=== PATIENT | female | born 1930 | race Caucasian/White ===

== ENCOUNTER 2016-08-27 17:10 | Observation (INO) | payer MEDICARE, BC ==
[2016-08-27] MEDS ORDERED: Sodium Chloride 0.9% 1,000 ML IV SCH ×2 (19:30→22:45)
[2016-08-27] MEDS ORDERED: Sodium Chloride 0.9% 10 ML Syringe FLUSH PRN (19:30)
[2016-08-27] MEDS ORDERED: Acetaminophen/oxyCODONE 325-5 MG Tab PO ONE (21:11)
--- NOTE | 2016-08-27 21:40 | EDM.PDOC ---
ED HPI GENERAL MEDICAL PROBLEM - General Chief Complaint: General Stated Complaint: illness Time Seen by Provider: 08/27/16 18:40 Source of Information: Reports: Family History Limitations: Reports: Altered mental status - History of Present Illness INITIAL COMMENTS - FREE TEXT/NARRATIVE: This lady was brought in by her family primarily due to mental status changes. 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 She was placed on azithromycin ethambutol and right Fen/Phen. She was seen in the clinic about 3 days ago. She was complaining of increasing shortness of breath and cough and heavy or sputum production it was noted to be greenish. A chest x-ray suggested a new left lower lobe infiltrate. Was judged to be a community acquired pneumonia pneumonia so clindamycin was added to her treatment regimen. The family says that today she seems confused. Normally she is very lucid but today she's talking about her who in the as if he is still alive. She doesn't appear to be in any kind of distress. Her family said that her cough seems worse. At about 4 PM today she vomited and it was noted to be orange colored but they think this is because of the antibiotics she is on. There has been no fever. She is eating and drinking well and the family does not think she is dehydrated.. There's been no diarrhea. She's not having any urinary tract symptoms. stomach Pain Score (Numeric/FACES): 5 - Related Data Allergies Allergy/AdvReac Type Severity Reaction Status Date / Time Penicillins Allergy Hives Verified 08/27/16 18:26 duoneb Allergy Confusion Uncoded 08/27/16 18:26 Home Meds: Home Meds FLUoxetine [PROzac] 20 mg PO DAILY 10/04/14 [History] Fluticasone/Salmeterol [Advair 100-50 Diskus] 1 puff INH BID 10/04/14 [History] Furosemide [Lasix] 20 mg PO DAILY 10/04/14 [History] Tiotropium [Spiriva] 18 mcg INH BEDTIME 10/04/14 [History] Albuterol Sulfate [Proair Hfa] 1 - 2 puff IH Q4H PRN 06/28/16 [History] Azithromycin 500 mg PO ASDIRECTED 08/27/16 [History] Benzonatate 200 mg PO TID 08/27/16 [History] Clindamycin Hcl [IJD: Clindamycin HCl] 300 mg PO TID 08/27/16 [History] Ethambutol HCl [Myambutol] 800 mg PO ASDIRECTED 08/27/16 [History] L.acidoph,Paracasei, B.lactis [Probiotic] 1 each PO BID 08/27/16 [History] Rifampin 600 mg PO ASDIRECTED 08/27/16 [History] prednisoLONE Acetate [Prednisolone Acetate] 5 ml OP BID 08/27/16 [History] Past Medical History HEENT History: Reports: Cataract, Impaired vision, Macular degeneration Cardiovascular History: Reports: SOB on exertion Respiratory History: Reports: Asthma, Bronchitis, recurrent, COPD, Pneumonia, recurrent, SOB, Other (see below) Other Respiratory History: 02 @ 2 liters, mycobacterium avium intracellulare, pneumonia Gastrointestinal History: Reports: None Genitourinary History: Reports: Other (see below) Other Genitourinary History: surgery -kidney reattached MACHINE BENDER History: Reports: Ectopic , , Spontaneous Musculoskeletal History: Reports: Back pain, chronic, Neck pain, chronic, Osteoarthritis Neurological History: Reports: Headaches, chronic Psychiatric History: Reports: Depression Endocrine/Metabolic History: Reports: Hypothyroidism, Vitamin D deficiency Hematologic History: Reports: Blood transfusion(s), Iron deficiency Immunologic History: Reports: None, Other (see below) Other Immunologic History: lupus Dermatologic History: Reports: None - Infectious Disease History Infectious Disease History: Reports: Chicken pox, Measles, Mumps - Past Surgical History Head Surgeries/Procedures: Reports: None HEENT Surgical History: Reports: Adenoidectomy, Cataract surgery, Tonsillectomy Cardiovascular Surgical History: Reports: None Respiratory Surgical History: Reports: None GI Surgical History: Reports: None Female Surgical History: Reports: Tubal ligation Endocrine Surgical History: Reports: Thyroid biopsy Neurological Surgical History: Reports: None Musculoskeletal Surgical History: Reports: None Dermatological Surgical History: Reports: None Social & Family History - Family History Family Medical History: Noncontributory - Tobacco Use Smoking Status *Q: Never Smoker Second Hand Smoke Exposure: No - Caffeine Use Caffeine Use: Reports: Coffee - Alcohol Use Days Per Week of Alcohol Use: 0 - Recreational Drug Use Recreational Drug Use: No ED ROS GENERAL - Review of Systems Review Of Systems: See Below Constitutional: Denies: fever, chills, malaise, weakness HEENT: Reports: No symptoms, Other (She has cataracts in the left eye) Respiratory: Reports: Cough (Per HPI) Cardiovascular: Reports: No symptoms Endocrine: Reports: no symptoms GI/Abdominal: Reports: No symptoms : Reports: no symptoms Musculoskeletal: Reports: no symptoms Skin: Reports: no symptoms Neurological: Reports: Confusion Psychiatric: Reports: No symptoms Hematologic/Lymphatic: Reports: no symptoms Immunologic: Reports: no symptoms ED EXAM, GENERAL - Physical Exam Exam: See Below Exam Limited By: No limitations General Appearance: alert, WD/WN, no apparent distress (She is alert and freely conversant. She's happy and smiling and does not appear to be ill) Eye Exam: bilateral eye: abnormal pupil (Left pupil not well-seen. It has a cataract. Right pupil is normal) Ears: normal external exam, normal TMs Nose: normal inspection Throat/Mouth: Normal inspection (Appears well hydrated) Head: atraumatic Neck: normal inspection Respiratory/Chest: rhonchi (There are scattered rhonchi but good air movement) Cardiovascular: normal peripheral pulses, regular rate, rhythm GI/Abdominal: normal bowel sounds, soft, non tender Back Exam: normal inspection Extremities: normal inspection Neurological: alert, CN II-XII intact. No: oriented (The patient was talking about her as if he is still alive) Psychiatric: normal affect, normal mood (She is happy and smiling) Skin Exam: Warm, Dry Course - Vital Signs Last Recorded V/S: Last Vital Signs Temp 37.6 C 08/27/16 18:38 Pulse 92 08/27/16 21:43 Resp 20 08/27/16 21:43 BP 139/71 08/27/16 21:43 Pulse Ox 96 08/27/16 21:43 - Orders/Labs/Meds Orders: Active Orders 24 hr Category Date Time Status EKG Documentation Completion [RC] ASDIRECTED Care 08/27/16 21:42 Active Chest 2V [CR] Urgent Exams 08/27/16 19:30 Taken Head wo Cont [CT] Stat Exams 08/27/16 20:53 Taken CULTURE BLOOD [BC] Urgent Lab 08/27/16 19:35 Received CULTURE BLOOD [BC] Urgent Lab 08/27/16 19:45 Received Sodium Chloride 0.9% [Normal Saline] 1,000 ml Med 08/27/16 19:30 Active IV ASDIRECTED Sodium Chloride 0.9% [Saline Flush] Med 08/27/16 19:30 Active 10 ml FLUSH ASDIRECTED PRN Blood Culture x2 Reflex Set [OM.PC] Urgent Oth 08/27/16 19:31 Ordered Saline Lock Insert [OM.PC] Urgent Oth 08/27/16 19:30 Ordered EKG 12 Lead [EK] Urgent Ther 08/27/16 21:42 Ordered Medication Orders Sodium Chloride (Normal Saline) 1,000 mls @ 999 mls/hr IV ASDIRECTED KIARA Last Admin: 08/27/16 20:11 Dose: 999 mls/hr Sodium Chloride (Saline Flush) 10 ml FLUSH ASDIRECTED PRN PRN Reason: Keep Vein Open Last Admin: 08/27/16 19:52 Dose: 10 ml Labs: Laboratory Tests 08/27/16 08/27/16 08/27/16 Range/Units 19:35 19:35 19:35 WBC 7.7 (4.5-11.0) K/uL RBC 4.27 (3.30-5.50) M/uL Hgb 13.0 (12.0-15.0) g/dL Hct 40.7 (36.0-48.0) % MCV 95 (80-98) fL MCH 30 (27-31) pg MCHC 32 (32-36) % Plt Count 219 (150-400) K/uL Neut % (Auto) 84 H (36-66) % Lymph % (Auto) 7 L (24-44) % [place] % (Auto) 7 H (2-6) % Eos % (Auto) 2 (2-4) % Baso % (Auto) 0 (0-1) % Sodium 138 L (140-148) mmol/L Potassium 4.2 (3.6-5.2) mmol/L Chloride 99 L (100-108) mmol/L Carbon Dioxide 31 (21-32) mmol/L Anion Gap 12.2 (5.0-14.0) mmol/L BUN 15 (7-18) mg/dL Creatinine 0.9 (0.6-1.0) mg/dL Est Cr Clr Drug Dosing 36.80 mL/min Estimated GFR (MDRD) 60 (>60) Glucose 114 H (74-106) mg/dL Lactic Acid 1.2 (0.4-2.0) mmol/L Calcium 8.2 L (8.5-10.1) mg/dL Total Bilirubin 0.7 D (0.2-1.0) mg/dL AST 19 (15-37) U/L ALT 27 (12-78) U/L Alkaline Phosphatase 60 (46-116) U/L Total Protein 7.4 (6.4-8.2) g/dL Albumin 3.6 (3.4-5.0) g/dL Globulin 3.8 H (2.3-3.5) g/dL Albumin/Globulin Ratio 1.0 L (1.2-2.2) Urine Color Urine Appearance Urine pH (4.5-8.0) Ur Specific [place] (1.008-1.030) Urine Protein (NEGATIVE) mg/dL Urine Glucose (UA) (NEGATIVE) mg/dL Urine Ketones (NEGATIVE) mg/dL Urine Occult Blood (NEGATIVE) Urine Nitrite (NEGATIVE) Urine Bilirubin (NEGATIVE) Urine Urobilinogen (NORMAL) mg/dL Ur Leukocyte Esterase (NEGATIVE) Urine RBC (0-5) Urine WBC (0-5) Ur Epithelial Cells Amorphous Sediment Urine Bacteria Urine Mucus 08/27/16 Range/Units 21:43 WBC (4.5-11.0) K/uL RBC (3.30-5.50) M/uL Hgb (12.0-15.0) g/dL Hct (36.0-48.0) % MCV (80-98) fL MCH (27-31) pg MCHC (32-36) % Plt Count (150-400) K/uL Neut % (Auto) (36-66) % Lymph % (Auto) (24-44) % [place] % (Auto) (2-6) % Eos % (Auto) (2-4) % Baso % (Auto) (0-1) % Sodium (140-148) mmol/L Potassium (3.6-5.2) mmol/L Chloride (100-108) mmol/L Carbon Dioxide (21-32) mmol/L Anion Gap (5.0-14.0) mmol/L BUN (7-18) mg/dL Creatinine (0.6-1.0) mg/dL Est Cr Clr Drug Dosing mL/min Estimated GFR (MDRD) (>60) Glucose (74-106) mg/dL Lactic Acid (0.4-2.0) mmol/L Calcium (8.5-10.1) mg/dL Total Bilirubin (0.2-1.0) mg/dL AST (15-37) U/L ALT (12-78) U/L Alkaline Phosphatase (46-116) U/L Total Protein (6.4-8.2) g/dL Albumin (3.4-5.0) g/dL Globulin (2.3-3.5) g/dL Albumin/Globulin Ratio (1.2-2.2) Urine Color [place] Urine Appearance Clear Urine pH 6.0 (4.5-8.0) Ur Specific [place] 1.015 (1.008-1.030) Urine Protein Negative (NEGATIVE) mg/dL Urine Glucose (UA) Normal (NEGATIVE) mg/dL Urine Ketones Negative (NEGATIVE) mg/dL Urine Occult Blood Trace (NEGATIVE) Urine Nitrite Positive H (NEGATIVE) Urine Bilirubin Small (NEGATIVE) Urine Urobilinogen Normal (NORMAL) mg/dL Ur Leukocyte Esterase Negative (NEGATIVE) Urine RBC 0-5 (0-5) Urine WBC 0-5 (0-5) Ur Epithelial Cells Few Amorphous Sediment Rare Urine Bacteria Moderate Urine Mucus Rare Meds: Medications Generic Name Dose Route Start Last Admin Trade Name Freq PRN Reason Stop Dose Admin Sodium Chloride 1,000 mls @ 999 mls/hr 08/27/16 19:30 08/27/16 20:11 Normal Saline IV 999 mls/hr ASDIRECTED KIARA Administration Sodium Chloride 10 ml 08/27/16 19:30 08/27/16 19:52 Saline Flush FLUSH 10 ml ASDIRECTED PRN Administration Keep Vein Open Discontinued Medications Generic Name Dose Route Start Last Admin Trade Name Freq PRN Reason Stop Dose Admin Oxycodone/Acetaminophen 2 tab 08/27/16 21:11 Percocet 325-5 Mg PO 08/27/16 21:12 ONETIME ONE - Radiology Interpretation Free Text/Narrative:: The patient's head CT showed no acute intracranial process - Re-Assessments/Exams Free Text/Narrative Re-Assessment/Exam: 08/27/16 22:18 She received 1 L IV normal saline. This did not seem to affect her mental status at all. 08/27/16 22:23 urine shows a positive nitrite but it's believed that is from the antibiotic rifampin I spoke with Dr. Mendiola and he has come to the emergency room to admit the patient Departure - Departure Time of Disposition: 22:23 Disposition: Admitted As Inpatient 68 Condition: fair Clinical Impression: Mental status change Forms: ED Department Discharge - My Orders Last 24 Hours: My Active Orders 08/27/16 19:30 Chest 2V [CR] Urgent Sodium Chloride 0.9% [Normal Saline] 1,000 ml IV ASDIRECTED Sodium Chloride 0.9% [Saline Flush] 10 ml FLUSH ASDIRECTED PRN Saline Lock Insert [OM.PC] Urgent 08/27/16 19:31 Blood Culture x2 Reflex Set [OM.PC] Urgent 08/27/16 19:35 CULTURE BLOOD [BC] Urgent 08/27/16 19:45 CULTURE BLOOD [BC] Urgent 08/27/16 20:53 Head wo Cont [CT] Stat 08/27/16 21:42 EKG Documentation Completion [RC] ASDIRECTED EKG 12 Lead [EK] Urgent - Assessment/Plan Last 24 Hours: My Active Orders 08/27/16 19:30 Chest 2V [CR] Urgent Sodium Chloride 0.9% [Normal Saline] 1,000 ml IV ASDIRECTED Sodium Chloride 0.9% [Saline Flush] 10 ml FLUSH ASDIRECTED PRN Saline Lock Insert [OM.PC] Urgent 08/27/16 19:31 Blood Culture x2 Reflex Set [OM.PC] Urgent 08/27/16 19:35 CULTURE BLOOD [BC] Urgent 08/27/16 19:45 CULTURE BLOOD [BC] Urgent 08/27/16 20:53 Head wo Cont [CT] Stat 08/27/16 21:42 EKG Documentation Completion [RC] ASDIRECTED EKG 12 Lead [EK] Urgent
[2016-08-27] MEDS ORDERED: Albuterol 8 GM Inhaler INH PRN (22:58)
--- NOTE | 2016-08-28 02:31 | HP ---
CHIEF COMPLAINT: Confusion. HISTORY OF PRESENT ILLNESS: This is an 86-year-old, resident of [facility]. She has had problems with severe COPD on O2 at 2 L continuously. 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 She presented earlier this week with increasing respiratory symptoms and a nonproductive cough, was diagnosed with pneumonia on top of what she already has, was started by regular physician, Dr. Arreola, on clindamycin. Apparently, today had an emesis of orangish material and then the nursing staff called the family because she was really confused, thinking that her is still around family. Now, he has been for about 20 years. Family came and agreed that she was quite confused and she was brought into the emergency room for further evaluation. Evaluation with labs, which really did not show any identifiable source. Chest x-ray to me looks the same as is her chest x- ray back in June. CT scan of the brain, which was unremarkable, and I was asked to admit the patient for further evaluation treatment. The patient denies any pain. No headaches. No chest pain. She does have the coarse lung sounds and a nonproductive cough. By the time I arrived, family states that she was pretty much back to her baseline as far as her mentation. PAST MEDICAL HISTORY: 1. Atypical mycobacterium infection. 2. Depression. 3. Diaphragmatic hernia. 4. Hyperlipidemia. 5. Asthma. 6. Severe COPD on O2 at 2 L nasal cannula. 7. Essential hypertension. 8. Renal insufficiency. 9. Lingular pneumonia. MEDICATIONS: Include clindamycin 300 mg t.i.d., Tessalon Perles p.r.n., Pred Forte eyedrops 1 drop left eye b.i.d., Merna eye ointment in the left eye daily, azithromycin 500 mg 3 times a week, ethambutol 400 mg 2 tablets 3 times a week, rifampin 300 mg 2 tabs 3 times a week, Prozac 20 mg daily, vitamin D, Lasix 20 mg daily, Spiriva 1 puff daily, Advair 1 puff b.i.d., and albuterol inhaler p.r.n. ALLERGIES: PENICILLIN CAUSES HIVES. SOCIAL HISTORY: She has never smoked. FAMILY HISTORY: Noncontributory. REVIEW OF SYSTEMS: Denies headaches, vision changes. No chest pain. She does have the coarse breath sounds with nonproductive cough. She did throw up once today. Denies any nausea. No diarrhea or constipation. No urinary problems reported. No swelling in her legs. No skin problems. No other neurologic symptoms other than above. OBJECTIVE: VITAL SIGNS: Weight 63 kg, temp 37.6, pulse 92, blood pressure 139/71, respirations 20, and O2 saturation 96% on 2 L, which is her usual. GENERAL: The patient right now seems to be fairly alert and oriented. HEENT: Pharynx showed dry mucous membranes. Dentures worn. NECK: Supple. No obvious thyromegaly, JVD, or carotid bruits. LUNGS: Coarse bilaterally. HEART: Regular without murmurs. ABDOMEN: Soft, nontender. No mass or organomegaly palpated. EXTREMITIES: No edema. Pedal pulses are palpable and equal bilaterally. SKIN: Negative. Chest x-ray to me looks the same as it did back in June. We are awaiting radiology interpretation. LABORATORY DATA: Urinalysis showed positive nitrites, but, otherwise, unremarkable. White count 7.7, hemoglobin 13.0, platelets 219,000, sodium 138, potassium 4.2, chloride 99, creatinine 0.9, BUN is 15, and glucose 114. Liver functions were normal. ASSESSMENT: Increased confusion, although she has improved and close to her baseline. At this point, we will admit under observation. Anticipate less than 2 midnight stays. Watch her and see if there is any recurrence of her confusion. Question if she is having a reaction to clindamycin. Re-evaluate her respiratory status in the morning, may just be related to her recent atypical mycobacterium infection and chronic obstructive pulmonary disease. Other medical problems as listed above. Abel Mendiola MD /[id number]
[2016-08-28] MEDS ORDERED: Benzonatate 100 MG Cap PO SCH (09:00)
[2016-08-28] MEDS ORDERED: Formoterol/Mometasone 100-5 MCG 8.8 GM Inhaler IH SCH (09:00)
[2016-08-28] MEDS ORDERED: Non-Formulary Medication 1 Each (Fluticasone/Salmeterol [Advair 100-50] 1 PUFF) INH SCH (09:00)
[2016-08-28] MEDS: Lactobacillus Rhamnosus GG (Probiotic) Cap PO SCH ×2 (12:46→21:55)
[2016-08-28] MEDS: prednisoLONE Acetate 1% Ophth Susp (PTOM) EYELF SCH ×2 (12:46→21:55)
[2016-08-28] MEDS: Furosemide 20 MG (PTOM) PO SCH (12:46)
[2016-08-28] MEDS: FLUOXETINE 20 MG PO SCH (12:47)
[2016-08-28] MEDS: BENZONATATE 200 MG PO SCH ×3 (12:47→21:56)
--- NOTE | 2016-08-28 14:13 | PCM.PN ---
- General Info Date of Service: 08/28/16 - Review of Systems Pulmonary: Reports: shortness of breath, cough, sputum. Denies: pleuritic chest pain, hemoptysis, wheezing Cardiovascular: Reports: Dyspnea on Exertion. Denies: Chest Pain, Palpitations , Orthopnea, PND, Edema, Lightheadedness Gastrointestinal: Reports: No symptoms Psychiatric: Reports: confusion Systems Review Comment:: Is patient is an 86-year-old woman who is admitted through the emergency department because of an episode of acute confusion, much worse than baseline. She has a known history of COPD and is oxygen requiring 24 hours a day. 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 She is been treated with antibiotics and has noted some improvement in symptoms. Over the past week or 2 has redeveloped some increased shortness of breath and cough. On evaluation the clinic was felt to have pneumonia and started on antibiotic therapy with clindamycin. This does seem to have helped, but last night was noted to be acutely confused and weak. On evaluation in the emergency Department no specific etiology has been identified for the increased confusion. At baseline she probably does have some underlying dementia. - Patient Data Vitals - most recent: Last Vital Signs Temp 99 F 08/28/16 11:45 Pulse 66 08/28/16 11:45 Resp 16 08/28/16 11:45 BP 102/67 08/28/16 11:45 Pulse Ox 98 08/28/16 11:45 Weight - most recent: 147 lb 11.2 oz I&O - last 24 hours: Intake & Output 08/27/16 08/28/16 08/28/16 22:59 06:59 14:59 Intake Total 576 480 Output Total 500 100 Balance 76 380 Lab Results last 24 hrs: Laboratory Results - last 24 hr 08/28/16 08/28/16 Range/Units 06:02 06:02 WBC 4.3 L (4.5-11.0) K/uL RBC 3.70 (3.30-5.50) M/uL Hgb 11.2 L (12.0-15.0) g/dL Hct 35.7 L (36.0-48.0) % MCV 97 (80-98) fL MCH 30 (27-31) pg MCHC 31 L (32-36) % Plt Count 187 (150-400) K/uL Sodium 140 (140-148) mmol/L Potassium 3.9 (3.6-5.2) mmol/L Chloride 105 (100-108) mmol/L Carbon Dioxide 31 (21-32) mmol/L Anion Gap 3.9 L (5.0-14.0) mmol/L BUN 12 (7-18) mg/dL Creatinine 0.8 (0.6-1.0) mg/dL Est Cr Clr Drug Dosing 41.04 mL/min Estimated GFR (MDRD) > 60 (>60) Glucose 102 (74-106) mg/dL Calcium 7.6 L (8.5-10.1) mg/dL Med Orders - Current: Current Medications Albuterol (Ventolin Hfa) 0 gm INH Q4H PRN PRN Reason: Shortness of Breath Azithromycin (Zithromax) 500 mg PO MoWeFr@0900 [facility] Fluoxetine HCl (Prozac) 20 mg PO DAILY [facility] Last Admin: 08/28/16 12:47 Dose: 20 mg Furosemide (Lasix) 20 mg PO DAILY [facility] Last Admin: 08/28/16 12:46 Dose: 20 mg Lactobacillus Rhamnosus (Culturelle) 1 cap PO BID [facility] Last Admin: 08/28/16 12:46 Dose: Not Given Non-Formulary Medication (Ethambutol Hcl [Myambutol]) 800 mg PO MoWeFr@0900 [facility] Non-Formulary Medication (Rifampin [Rifampin]) 600 mg PO MoWeFr@0900 [facility] Benzonatate 200mg ( (Ptom)) 0 each PO TID [facility] Last Admin: 08/28/16 12:47 Dose: 1 each Advair 100/50 (Ptom) 0 each INH BIDRT [facility] Prednisolone Acetate (Pred Forte 1% Ophth Susp) 0 ml EYELF BID [facility] Last Admin: 08/28/16 12:46 Dose: 1 drop Tiotropium [place] (Spiriva Handihaler) 18 mcg INH BEDTIME [facility] Discontinued Medications Sodium Chloride (Normal Saline) 1,000 mls @ 999 mls/hr IV ASDIRECTED [facility] Last Admin: 08/27/16 20:11 Dose: 999 mls/hr Sodium Chloride (Normal Saline) 1,000 mls @ 125 mls/hr IV ASDIRECTED [facility] Last Admin: 08/28/16 02:04 Dose: 125 mls/hr Mometasone Furoate/Formoterol Fumar (Dulera 100-5 Mcg) 2 puff IH BID KIARA Last Admin: 08/28/16 08:51 Dose: Not Given Oxycodone/Acetaminophen (Percocet 325-5 Mg) 2 tab PO ONETIME ONE Stop: 08/27/16 21:12 Sodium Chloride (Saline Flush) 10 ml FLUSH ASDIRECTED PRN PRN Reason: Keep Vein Open Last Admin: 08/27/16 19:52 Dose: 10 ml - Exam Quality Assessment: supplemental oxygen, DVT prophylaxis General: alert, cooperative, no acute distress Lungs: Clear to auscultation, Normal respiratory effort Cardiovascular: Regular Rate, Regular Rhythm, No Murmurs Abdomen: bowel sounds present, soft, no tenderness, no distension Extremities: no edema Skin: warm, dry, intact - Problem List Review Problem List Initiated/Reviewed/Updated: Yes - My Orders Last 24 Hours: My Active Orders 08/28/16 14:07 Ambulate [RC] QID Convert IV to Saline Lock [OM.PC] Routine RT Acapella [RESPCARE] Urgent - Plan Plan:: ASSESSMENT AND PLAN ACUTE DELIRIUM-likely secondary to underlying dementia and current respiratory tract infection. She has stabilized since admission and seems to be back to baseline with mild confusion. No obvious other underlying infection, metabolic abnormality, or new medication to explain current symptoms. -Monitor overnight and anticipate discharge back to assisted living facility tomorrow CHRONIC BRONCHITIS-she is currently treated for Mycobacterium avium intracellular. Recently felt to have pneumonia and has been treated with oral antibiotic therapy with clindamycin. 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 DISPOSITION-anticipate discharge to home after the hospital stay. PRIMARY CARE PROVIDER-Dr. Arreola
[2016-08-28] MEDS ORDERED: Enoxaparin 40 MG/0.4 ML Syringe SUBCUT SCH (16:00)
[2016-08-28] MEDS ORDERED: TIOTROPIUM 18 MCG INH SCH (21:00)
[2016-08-28] MEDS: ADVAIR INH SCH (21:57)
[2016-08-29] MEDS: ADVAIR INH SCH (07:25)
[2016-08-29] MEDS: Lactobacillus Rhamnosus GG (Probiotic) Cap PO SCH (09:57)
[2016-08-29] MEDS: BENZONATATE 200 MG PO SCH (09:57)
[2016-08-29] MEDS: prednisoLONE Acetate 1% Ophth Susp (PTOM) EYELF SCH (09:58)
[2016-08-29] MEDS: FLUOXETINE 20 MG PO SCH (11:25)
[2016-08-29] MEDS: Furosemide 20 MG (PTOM) PO SCH (11:25)
[2016-08-29 11:28] VITALS: BP 106/43
--- NOTE | 2016-08-29 11:49 | PCM.DCSUM1 ---
Discharge Summary - Hospital Course Brief History: This patient is an 86-year-old woman who was admitted to observation status because of increased confusion and agitation. - Discharge Data Discharge Date: 08/29/16 Discharge Disposition: DC/Tfer to Other 70 Condition: Fair - Discharge Diagnosis/Problem(s) (1) Bronchitis SNOMED Code(s): 41743911 ICD Code: J40 - BRONCHITIS, NOT SPECIFIED ACUTE OR CHRONIC Status: Acute Current Visit: Yes (2) Mental status change SNOMED Code(s): 371901818 ICD Code: R41.82 - ALTERED MENTAL STATUS, UNSPECIFIED Status: Acute Current Visit: Yes (3) COPD (chronic obstructive pulmonary disease) SNOMED Code(s): 52168451 ICD Code: J44.9 - CHRONIC OBSTRUCTIVE PULMONARY DISEASE, UNSPECIFIED Status : Acute Current Visit: No - Patient Summary/Data Hospital Course: This patient is an 86-year-old woman who was admitted to observation status through the emergency room because of an episode of increased confusion and agitation at her assisted living facility. She has had a known history of COPD, requiring continuous oxygen. 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 She's been treated over the past several weeks with rifampin and azithromycin and is followed with Dr. Kim on a regular basis. Recently was felt to have bacterial pneumonia versus bronchitis and has been treated with oral antibiotic therapy with clindamycin in addition to the other antibiotics. On the evening of admission she became more acutely confused and somewhat agitated. He was brought into the emergency department for further evaluation. No other specific infections, metabolic abnormalities, or medication changes were noted to be contributing to the increase confusion. She does not carry a formal diagnosis of dementia, but after discussion with her sons it's apparent that she does have some underlying cognitive impairment which also may have contributed to this episode of increased confusion and agitation. Activity will be as tolerated and she will resume her usual diet. Followup appointment will be scheduled with Dr. Kim within one week. She will remain on her current antibiotics she was prior to admission. - Patient Instructions Diet: Usual Diet as Tolerated Activity: As Tolerated Other/Special Instructions: Schedule followup appointment with Dr. Hills one week. - Discharge Plan Home Medications: Home Meds FLUoxetine [PROzac] 20 mg PO DAILY 10/04/14 [History] Fluticasone/Salmeterol [Advair 100-50] 1 puff INH BID 10/04/14 [History] Furosemide [Lasix] 20 mg PO DAILY 10/04/14 [History] Tiotropium [Spiriva HandiHaler] 18 mcg INH BEDTIME 10/04/14 [History] Albuterol Sulfate [Proair Hfa] 1 - 2 puff IH Q4H PRN 06/28/16 [History] Azithromycin 500 mg PO MOWEFR@08/27/16 [History] Benzonatate 200 mg PO TID 08/27/16 [History] Clindamycin Hcl [IJD: Clindamycin HCl] 300 mg PO TID 08/27/16 [History] Ethambutol HCl [Myambutol] 800 mg PO MOWEFR@08/27/16 [History] L.acidoph,Paracasei, B.lactis [Probiotic] 1 each PO BID 08/27/16 [History] Rifampin 600 mg PO MOWEFR@08/27/16 [History] prednisoLONE Acetate [Prednisolone Acetate] 5 ml OP BID 08/27/16 [History] Referrals: Axel Arreola MD [Primary Care Provider] - - Patient Data Vitals - Most Recent: Last Vital Signs Temp 97.5 F 08/29/16 11:26 Pulse 67 08/29/16 11:26 Resp 18 08/29/16 11:26 BP 106/43 L 08/29/16 11:26 Pulse Ox 97 08/29/16 11:26 Weight - Most Recent: 147 lb 11.2 oz I&O - Last 24 hours: Intake & Output 08/28/16 08/29/16 08/29/16 22:59 06:59 14:59 Intake Total 1121 240 Output Total 950 725 200 Balance 171 -725 40 Med Orders - Current: Current Medications Albuterol (Ventolin Hfa) 0 gm INH Q4H PRN PRN Reason: Shortness of Breath Azithromycin (Zithromax) 500 mg PO MoWeFr@0900 [facility] Enoxaparin Sodium (Lovenox) 40 mg SUBCUT Q24H [facility] Last Admin: 08/28/16 15:43 Dose: 40 mg Fluoxetine HCl (Prozac) 20 mg PO DAILY [facility] Last Admin: 04/09/17 11:25 Dose: 20 mg Furosemide (Lasix) 20 mg PO DAILY [facility] Last Admin: 08/29/16 11:25 Dose: 20 mg Lactobacillus Rhamnosus (Culturelle) 1 cap PO BID [facility] Last Admin: 08/29/16 09:57 Dose: 1 cap Ethambutol Hcl [ (Myambutol] 800mg) 800 mg PO MoWeFr@0900 [facility] Benzonatate 200mg ( (Ptom)) 0 each PO TID [facility] Last Admin: 08/29/16 09:57 Dose: 1 each Advair 100/50 (Ptom) 0 each INH BIDRT [facility] Last Admin: 08/29/16 07:25 Dose: 1 each Prednisolone Acetate (Pred Forte 1% Ophth Susp) 0 ml EYELF BID [facility] Last Admin: 08/29/16 09:58 Dose: 1 drop Rifampin (Rifadin) 600 mg PO MoWeFr@0900 [facility] Tiotropium [place] (Spiriva Handihaler) 18 mcg INH BEDTIME [facility] Last Admin: 08/28/16 21:56 Dose: 18 mcg Discontinued Medications Sodium Chloride (Normal Saline) 1,000 mls @ 999 mls/hr IV ASDIRECTED [facility] Last Admin: 08/27/16 20:11 Dose: 999 mls/hr Sodium Chloride (Normal Saline) 1,000 mls @ 125 mls/hr IV ASDIRECTED [facility] Last Admin: 08/28/16 02:04 Dose: 125 mls/hr Mometasone Furoate/Formoterol Fumar (Dulera 100-5 Mcg) 2 puff IH BID [facility] Last Admin: 08/28/16 08:51 Dose: Not Given Oxycodone/Acetaminophen (Percocet 325-5 Mg) 2 tab PO ONETIME ONE Stop: 08/27/16 21:12 Sodium Chloride (Saline Flush) 10 ml FLUSH ASDIRECTED PRN PRN Reason: Keep Vein Open Last Admin: 08/27/16 19:52 Dose: 10 ml *Q Meaningful Use (DIS) - VTE *Q VTE Criteria *Q: - Stroke *Q Stroke Criteria *Q: - AMI *Q AMI Criteria *Q:
[2016-08-30] MEDS ORDERED: Azithromycin 250 MG Tab PO SCH (09:00)
[2016-08-30] MEDS ORDERED: ETHAMBUTOL HCL 800 MG PO SCH (09:00)
[2016-08-30] MEDS ORDERED: Rifampin 150 MG Cap PO SCH (09:00)
--- NOTE | 2016-08-30 10:05 | CR ---
Chest 2V INDICATION: pain FINDINGS: Comparison 06/27/2016. Minimal fibrosis or atelectasis left lung base. Mild biapical scarrin g. Stable hyperinflation. Chest otherwise negative.
== END 2016-08-29 12:20 | disposition other institution (70) ==
LOC: JP.ED 17:10 → JP.MS 23:01
PROVIDERS: ADMIT Family Medicine; ATTEND Hospitalist
DX: J44.9 Chronic obstructive pulmonary disease, unspecified (principal); R41.82 Altered mental status, unspecified; F32.9 Major depressive disorder, single episode, unspecified; E78.5 Hyperlipidemia, unspecified; I10 Essential (primary) hypertension; N28.9 Disorder of kidney and ureter, unspecified; Z88.0 Allergy status to penicillin; Z79.899 Other long term (current) drug therapy; Z88.8 Allergy status to other drugs, medicaments and biological substances; E03.9 Hypothyroidism, unspecified; E55.9 Vitamin D deficiency, unspecified; Z98.890 Other specified postprocedural states
CPT/HCPCS: 36415; 70450; 71020; 80048; 80053; 81001; 83605; 85025; 85027; 87040; 94664; 94667; 96360; 96361; 96372; 99217; 99225; 99285; A9270; G0378; J1650; J7040; J7050

== ENCOUNTER 2017-07-08 16:14 | Inpatient (IN) | payer MEDICARE, BC ==
[2017-07-08] MEDS ORDERED: Acetaminophen 325 MG Tab, 50 Tab Bulk Bottle PO ONE (18:29)
[2017-07-08] MEDS ORDERED: Acetaminophen 325 MG Tab PO ONE (18:33)
--- NOTE | 2017-07-08 20:44 | EDM.PDOC ---
ED HPI GENERAL MEDICAL PROBLEM - General Chief Complaint: Fever Stated Complaint: copd HAS A COLD Time Seen by Provider: 07/08/17 18:08 Source of Information: Reports: Patient, Family, Other (Notes from amrit Yang) History Limitations: Reports: Other (The patient has dementia) - History of Present Illness INITIAL COMMENTS - FREE TEXT/NARRATIVE: This elderly lady was sent over from the assisted living facility with the complaints that she was exhibiting flulike symptoms. He complained of wheezing and congestion throughout and a productive cough. They requested a flu swab and other treatment as advised. Most history is given by her son is present with her. He said her fever just started today and sharp cough has suddenly gotten much worse. This lady has a history of mycobacteria avium complex. She had a lung CT earlier this week which indicated that the disease might be progressing. She has been hospitalized recently with some confusion and she had an MRI of the head which was normal. There are some plans to do a bronchoscopy on her and I believe the CT was done as a preop CT. She's supposed to follow-up with market research coordinator in [place] next week to discuss this. Family is very concerned because she lives in an assisted living facility of the nurse isn't available at night. Other history is that her oxygen saturation had dropped quite a bit today at the assisted living facility but I don't have any history indicating just how low it was. This patient did get a flu shot this season but her son thinks it was very early such as early January Treatments STOCK FITTER: Reports: Oxygen Left Chest Pain Score (Numeric/FACES): 8 - Related Data Allergies Allergy/AdvReac Type Severity Reaction Status Date / Time Penicillins Allergy Hives Verified 07/08/17 18:30 albuterol [From DuoNeb] AdvReac Confusion Verified 07/08/17 18:30 ipratropium [From DuoNeb] AdvReac Confusion Verified 07/08/17 18:30 Home Meds: Home Meds FLUoxetine [PROzac] 20 mg PO DAILY 10/04/14 [History] Fluticasone/Salmeterol [Advair 100-50] 1 puff INH BID 10/04/14 [History] Furosemide [Lasix] 20 mg PO DAILY 10/04/14 [History] Tiotropium [Spiriva HandiHaler] 18 mcg INH DAILY 10/04/14 [History] Albuterol Sulfate [Proair Hfa] 1 - 2 puff IH Q4H PRN 06/28/16 [History] Benzonatate 200 mg PO TID PRN 08/27/16 [History] L.acidoph,Paracasei, B.lactis [Probiotic] 1 each PO BID 08/27/16 [History] *B12 1,000 mcg PO DAILY 07/08/17 [History] *Barrier Cream 07/08/17 [History] *Fleet Enema PRN 07/08/17 [History] *Immodium 2 mg PO ASDIRECTED PRN 07/08/17 [History] *Maalox 30 ml PO ASDIRECTED PRN 07/08/17 [History] *Milk Of Magnesia 30 ml PO ASDIRECTED PRN 07/08/17 [History] *Prednisolone Acetate 1 drop EYELF BID 07/08/17 [History] *Sodium Chloride 5% EYELF 07/08/17 [History] *Tussin Dm 10 ml PO ASDIRECTED PRN 07/08/17 [History] Acetaminophen [Tylenol] 650 mg PO ASDIRECTED PRN 07/08/17 [History] Acetaminophen [Tylenol] 650 supp RECTAL ASDIRECTED PRN 07/08/17 [History] Bisacodyl 10 mg RECTAL PRN 07/08/17 [History] Past Medical History HEENT History: Reports: Cataract, Impaired Vision, Macular Degeneration Cardiovascular History: Reports: SOB on Exertion Respiratory History: Reports: Asthma, Bronchitis, Recurrent, COPD, Pneumonia, Recurrent, SOB, Other (See Below) Other Respiratory History: 02 @ 2 liters, mycobacterium avium intracellulare, pneumonia Gastrointestinal History: Reports: None Genitourinary History: Reports: Other (See Below) Other Genitourinary History: surgery -kidney reattached FILTRATION OPERATOR History: Reports: Ectopic , , Spontaneous Musculoskeletal History: Reports: Back Pain, Chronic, Neck Pain, Chronic, Osteoarthritis Neurological History: Reports: Headaches, Chronic Psychiatric History: Reports: Depression Endocrine/Metabolic History: Reports: Hypothyroidism, Vitamin D Deficiency Hematologic History: Reports: Blood Transfusion(s), Iron Deficiency Immunologic History: Reports: Other (See Below) Other Immunologic History: lupus Dermatologic History: Reports: None - Infectious Disease History Infectious Disease History: Reports: Chicken Pox - Past Surgical History HEENT Surgical History: Reports: Adenoidectomy, Cataract Surgery, Tonsillectomy GI Surgical History: Reports: None Female Surgical History: Reports: Tubal Ligation Endocrine Surgical History: Reports: Thyroid Biopsy Dermatological Surgical History: Reports: None Social & Family History - Family History Family Medical History: Noncontributory - Tobacco Use Smoking Status *Q: Never Smoker Second Hand Smoke Exposure: No - Caffeine Use Caffeine Use: Reports: Coffee - Alcohol Use Days Per Week of Alcohol Use: 0 - Recreational Drug Use Recreational Drug Use: No ED ROS GENERAL - Review of Systems Review Of Systems: See Below Constitutional: Reports: Fever, Chills HEENT: Reports: No Symptoms Respiratory: Reports: Wheezing, Cough, Other (Hypoxia) Cardiovascular: Reports: No Symptoms Endocrine: Reports: No Symptoms GI/Abdominal: Reports: No Symptoms : Reports: No Symptoms Musculoskeletal: Reports: No Symptoms Skin: Reports: No Symptoms Neurological: Reports: No Symptoms Psychiatric: Reports: No Symptoms Hematologic/Lymphatic: Reports: No Symptoms ED EXAM, GENERAL - Physical Exam Exam: See Below Exam Limited By: No Limitations General Appearance: Alert, Mild Distress, Thin Eye Exam: Bilateral Eye: EOMI, PERRL Ears: Normal External Exam Nose: Normal Inspection Throat/Mouth: Normal Inspection, Normal Oropharynx Head: Atraumatic Neck: Normal Inspection Respiratory/Chest: Crackles, Rhonchi Cardiovascular: Normal Peripheral Pulses, Regular Rate, Rhythm GI/Abdominal: Soft, Non-Tender Back Exam: Normal Inspection Extremities: Normal Inspection Neurological: Alert, CN II-XII Intact, Confused Psychiatric: Normal Affect Skin Exam: Warm, Dry Course - Vital Signs Last Recorded V/S: Last Vital Signs Temp 37.4 C 07/08/17 21:08 Pulse 78 07/08/17 20:51 Resp 24 H 07/08/17 19:02 BP 150/67 H 07/08/17 20:51 Pulse Ox 99 07/08/17 20:51 - Orders/Labs/Meds Orders: Active Orders 24 hr Category Date Time Status Patient Status [ADT] Routine ADT 07/08/17 21:40 Active Bedrest Bedside Commode [RC] ASDIRECTED Care 07/08/17 21:40 Active Cardiac Monitoring [RC] .As Directed Care 07/08/17 21:42 Active Height and Weight [RC] DAILY Care 07/08/17 21:40 Active Intake and Output [RC] QSHIFT Care 07/08/17 21:42 Active Oxygen Therapy [RC] PRN Care 07/08/17 21:40 Active Pulse Oximetry [RC] CONTINUOUS Care 07/08/17 21:42 Active RT Aerosol Therapy [RC] ASDIRECTED Care 07/08/17 21:44 Active VTE/DVT Education [RC] Per Unit Routine Care 07/08/17 21:40 Active Vital Signs [RC] Q4H Care 07/08/17 21:40 Active OT Evaluation and Treatment [CONS] Routine Cons 07/08/17 21:40 Active PT Evaluation and Treatment [CONS] Routine Cons 07/08/17 21:40 Active Regular Diet [DIET] Diet 07/08/17 Breakfast Active Chest 2V [CR] Urgent Exams 07/08/17 18:26 Taken BASIC METABOLIC PANEL,BMP [CHEM] AM Lab 07/09/17 05:11 Ordered CBC WITH AUTO DIFF [HEME] AM Lab 07/09/17 05:11 Ordered CULTURE BLOOD [BC] Urgent Lab 07/08/17 18:30 Received CULTURE BLOOD [BC] Urgent Lab 07/08/17 18:30 Received CULTURE RESPIRATORY + SMEAR [RM] Stat Lab 07/08/17 21:40 Ordered CULTURE URINE [RM] Stat Lab 07/08/17 21:47 Ordered Albuterol/Ipratropium [DuoNeb 3.0-0.5 MG/3 ML] Med 07/08/17 21:40 Stop Req 3 ml NEB QID PRN Docusate Sodium/Sennosides [Senna Plus] Med 07/08/17 21:40 Active 1 tab PO BID PRN Heparin Sodium Med 07/08/17 22:00 Active 5,000 units SUBCUT Q8H Ondansetron [Zofran ODT] Med 07/08/17 21:40 Active 4 mg PO Q6H PRN Sodium Chloride 0.9% [Normal Saline] 1,000 ml Med 07/08/17 21:45 Active IV ASDIRECTED Blood Culture x2 Reflex Set [OM.PC] Urgent Oth 07/08/17 18:27 Ordered Resuscitation Status Routine Resus Stat 07/08/17 21:40 Ordered Medication Orders Heparin Sodium (Porcine) (Heparin Sodium) 5,000 units SUBCUT Q8H [facility] Sodium Chloride (Normal Saline) 1,000 mls @ 125 mls/hr IV ASDIRECTED [facility] Ondansetron HCl (Zofran Odt) 4 mg PO Q6H PRN PRN Reason: Nausea able to take PO Senna/Docusate Sodium (Senna Plus) 1 tab PO BID PRN PRN Reason: Constipation Labs: Laboratory Tests 07/08/17 07/08/17 07/08/17 Range/Units 18:30 18:30 18:30 WBC 6.3 (4.5-11.0) K/uL RBC 3.84 (3.30-5.50) M/uL Hgb 12.0 (12.0-15.0) g/dL Hct 37.5 (36.0-48.0) % MCV 98 (80-98) fL MCH 31 (27-31) pg MCHC 32 (32-36) % Plt Count 227 (150-400) K/uL Neut % (Auto) 66 (36-66) % Lymph % (Auto) 15 L (24-44) % Terry % (Auto) 18 H (2-6) % Eos % (Auto) 2 (2-4) % Baso % (Auto) 0 (0-1) % Sodium 137 L (140-148) mmol/L Potassium 4.0 (3.6-5.2) mmol/L Chloride 101 (100-108) mmol/L Carbon Dioxide 30 (21-32) mmol/L Anion Gap 10.0 (5.0-14.0) mmol/L BUN 17 (7-18) mg/dL Creatinine 0.9 (0.6-1.0) mg/dL Est Cr Clr Drug Dosing 36.14 mL/min Estimated GFR (MDRD) 60 (>60) Glucose 96 (74-106) mg/dL Lactic Acid 1.5 (0.4-2.0) mmol/L Calcium 8.7 (8.5-10.1) mg/dL Total Bilirubin 0.3 D (0.2-1.0) mg/dL AST 22 (15-37) U/L ALT 18 (12-78) U/L Alkaline Phosphatase 57 (46-116) U/L Total Protein 6.8 (6.4-8.2) g/dL Albumin 3.3 L (3.4-5.0) g/dL Globulin 3.5 (2.3-3.5) g/dL Albumin/Globulin Ratio 0.9 L (1.2-2.2) Urine Color Urine Appearance Urine pH (4.5-8.0) Ur Specific [place] (1.008-1.030) Urine Protein (NEGATIVE) mg/dL Urine Glucose (UA) (NEGATIVE) mg/dL Urine Ketones (NEGATIVE) mg/dL Urine Occult Blood (NEGATIVE) Urine Nitrite (NEGATIVE) Urine Bilirubin (NEGATIVE) Urine Urobilinogen (NORMAL) mg/dL Ur Leukocyte Esterase (NEGATIVE) Urine RBC (0-5) Urine WBC (0-5) Ur Epithelial Cells Amorphous Sediment Urine Bacteria Urine Mucus 07/08/17 Range/Units 20:14 WBC (4.5-11.0) K/uL RBC (3.30-5.50) M/uL Hgb (12.0-15.0) g/dL Hct (36.0-48.0) % MCV (80-98) fL MCH (27-31) pg MCHC (32-36) % Plt Count (150-400) K/uL Neut % (Auto) (36-66) % Lymph % (Auto) (24-44) % Terry % (Auto) (2-6) % Eos % (Auto) (2-4) % Baso % (Auto) (0-1) % Sodium (140-148) mmol/L Potassium (3.6-5.2) mmol/L Chloride (100-108) mmol/L Carbon Dioxide (21-32) mmol/L Anion Gap (5.0-14.0) mmol/L BUN (7-18) mg/dL Creatinine (0.6-1.0) mg/dL Est Cr Clr Drug Dosing mL/min Estimated GFR (MDRD) (>60) Glucose (74-106) mg/dL Lactic Acid (0.4-2.0) mmol/L Calcium (8.5-10.1) mg/dL Total Bilirubin (0.2-1.0) mg/dL AST (15-37) U/L ALT (12-78) U/L Alkaline Phosphatase (46-116) U/L Total Protein (6.4-8.2) g/dL Albumin (3.4-5.0) g/dL Globulin (2.3-3.5) g/dL Albumin/Globulin Ratio (1.2-2.2) Urine Color Yellow Urine Appearance Slightly cloudy Urine pH 5.0 (4.5-8.0) Ur Specific [place] 1.025 (1.008-1.030) Urine Protein Negative (NEGATIVE) mg/dL Urine Glucose (UA) Normal (NEGATIVE) mg/dL Urine Ketones Negative (NEGATIVE) mg/dL Urine Occult Blood Negative (NEGATIVE) Urine Nitrite Negative (NEGATIVE) Urine Bilirubin Small (NEGATIVE) Urine Urobilinogen Normal (NORMAL) mg/dL Ur Leukocyte Esterase Moderate (NEGATIVE) Urine RBC Not seen (0-5) Urine WBC 5-10 H (0-5) Ur Epithelial Cells Moderate Amorphous Sediment Not seen Urine Bacteria Many Urine Mucus Rare Meds: Medications Generic Name Dose Route Start Last Admin Trade Name Freq PRN Reason Stop Dose Admin Heparin Sodium (Porcine) 5,000 units 07/08/17 22:00 Heparin Sodium SUBCUT Q8H [facility] Sodium Chloride 1,000 mls @ 125 mls/hr 07/08/17 21:45 Normal Saline IV ASDIRECTED [facility] Ondansetron HCl 4 mg 07/08/17 21:40 Zofran Odt PO Q6H PRN Nausea able to take PO Senna/Docusate Sodium 1 tab 07/08/17 21:40 Senna Plus PO BID PRN Constipation Discontinued Medications Generic Name Dose Route Start Last Admin Trade Name Freq PRN Reason Stop Dose Admin Acetaminophen 650 mg 07/08/17 18:29 Tylenol Bulk Bottle PO 07/08/17 18:30 NOW ONE Acetaminophen 650 mg 07/08/17 18:33 07/08/17 19:04 Tylenol PO 07/08/17 18:34 650 mg NOW ONE Administration Albuterol/Ipratropium 3 ml 07/08/17 21:40 Duoneb 3.0-0.5 Mg/3 Ml NEB QID PRN Shortness Of Breath/wheezing Oseltamivir Phosphate 75 mg 07/08/17 20:50 07/08/17 21:06 Tamiflu PO 07/08/17 20:51 75 mg ONETIME ONE Administration - Radiology Interpretation Free Text/Narrative:: Chest x-ray shows some bibasilar opacities favoring fibrosis or atelectasis is difficult to exclude some mild infiltrate particularly in the right middle lobe Chest CT from July 04 also reviewed - Re-Assessments/Exams Free Text/Narrative Re-Assessment/Exam: 07/08/17 21:58 My concerns in this patient are that there may be a little bit of pneumonia but despite the negative influenza antigen test influenza is still a real possibility in this patient. The family is adamant that she can't be taken care of at the assisted living facility. I contacted and he has come to the emergency department to examine the patient and discuss with family Departure - Departure Time of Disposition: 22:00 Disposition: Admitted As Inpatient 68 Condition: Fair Clinical Impression: Pneumonia, Influenza - Discharge Information Referrals: Axel Arreola MD [Primary Care Provider] - Forms: ED Department Discharge - My Orders Last 24 Hours: My Active Orders 07/08/17 18:26 Chest 2V [CR] Urgent 07/08/17 18:27 Blood Culture x2 Reflex Set [OM.PC] Urgent 07/08/17 18:30 CULTURE BLOOD [BC] Urgent CULTURE BLOOD [BC] Urgent - Assessment/Plan Last 24 Hours: My Active Orders 07/08/17 18:26 Chest 2V [CR] Urgent 07/08/17 18:27 Blood Culture x2 Reflex Set [OM.PC] Urgent 07/08/17 18:30 CULTURE BLOOD [BC] Urgent CULTURE BLOOD [BC] Urgent
[2017-07-08] MEDS ORDERED: Oseltamivir 75 MG Cap PO ONE (20:50)
[2017-07-08] MEDS ORDERED: Albuterol/Ipratropium 3.0-0.5 MG/3 ML Neb Soln NEB PRN (21:40)
[2017-07-08] MEDS ORDERED: Ondansetron 4 MG Tab.DIS PO PRN (21:40)
--- NOTE | 2017-07-08 21:40 | PCM.HP ---
H&P History of Present Illness - General Date of Service: 07/08/17 Admit Problem/Dx: pneumonia Source of Information: Patient History Limitations: Reports: No Limitations - History of Present Illness Initial Comments - Free Text/Narative: 89-year-old female previous history of Mycobacterium avium complex infection, on 2 L of oxygen, severe COPD, asthma, hypertension, diaphragmatic hernia, hyperlipidemia, memory problem came to the ED with the complaining of shortness or breath and confusional state accompanied with a son. Patient has been staying in [facility]. Patient was previously diagnosed with Mycobacterium remaining complex and was on 6 month months of antibiotics which was stopped 8 weeks ago. As per son patient has cough, sputum production, generalized weakness, confusional state since last one week which is gradually progressing. Patient recently had CT scan of the chest which showed a questionable acute infection in the bilateral lung gore. Patient CODE STATUS is DNR/DNI. Patient denies any sick contacts. Patient has intermittent fever since last 2 days. In the ED patient received a Tylenol medication which controlled the fever. Patient blood pressures are elevated. Patient denies any chest pain, exertional chest pain, headaches, dizziness, lightheadedness, disturbance in bowel and bladder habits. Patient is otherwise at baseline. Other review of systems are not significant Left Chest Pain Score (Numeric/FACES): 8 - Related Data Allergies/Adverse Reactions: Allergies Allergy/AdvReac Type Severity Reaction Status Date / Time Penicillins Allergy Hives Verified 07/08/17 18:30 albuterol [From DuoNeb] AdvReac Confusion Verified 07/08/17 18:30 ipratropium [From DuoNeb] AdvReac Confusion Verified 07/08/17 18:30 Home Medications: Home Meds FLUoxetine [PROzac] 20 mg PO DAILY 10/04/14 [History] Fluticasone/Salmeterol [Advair 100-50] 1 puff INH BID 10/04/14 [History] Furosemide [Lasix] 20 mg PO DAILY 10/04/14 [History] Tiotropium [Spiriva HandiHaler] 18 mcg INH DAILY 10/04/14 [History] Albuterol Sulfate [Proair Hfa] 1 - 2 puff IH Q4H PRN 06/28/16 [History] Benzonatate 200 mg PO TID PRN 08/27/16 [History] L.acidoph,Paracasei, B.lactis [Probiotic] 1 each PO BID 08/27/16 [History] *B12 1,000 mcg PO DAILY 07/08/17 [History] *Barrier Cream 07/08/17 [History] *Fleet Enema PRN 07/08/17 [History] *Immodium 2 mg PO ASDIRECTED PRN 07/08/17 [History] *Maalox 30 ml PO ASDIRECTED PRN 07/08/17 [History] *Milk Of Magnesia 30 ml PO ASDIRECTED PRN 07/08/17 [History] *Prednisolone Acetate 1 drop EYELF BID 07/08/17 [History] *Sodium Chloride 5% EYELF 07/08/17 [History] *Tussin Dm 10 ml PO ASDIRECTED PRN 07/08/17 [History] Acetaminophen [Tylenol] 650 mg PO ASDIRECTED PRN 07/08/17 [History] Acetaminophen [Tylenol] 650 supp RECTAL ASDIRECTED PRN 07/08/17 [History] Bisacodyl 10 mg RECTAL PRN 07/08/17 [History] Past Medical History HEENT History: Reports: Cataract, Impaired Vision, Macular Degeneration Cardiovascular History: Reports: SOB on Exertion Respiratory History: Reports: Asthma, Bronchitis, Recurrent, COPD, Pneumonia, Recurrent, SOB, Other (See Below) Other Respiratory History: 02 @ 2 liters, mycobacterium avium intracellulare, pneumonia Gastrointestinal History: Reports: None Genitourinary History: Reports: Other (See Below) Other Genitourinary History: surgery -kidney reattached [employer] History: Reports: Ectopic , , Spontaneous Musculoskeletal History: Reports: Back Pain, Chronic, Neck Pain, Chronic, Osteoarthritis Neurological History: Reports: Headaches, Chronic Psychiatric History: Reports: Depression Endocrine/Metabolic History: Reports: Hypothyroidism, Vitamin D Deficiency Hematologic History: Reports: Blood Transfusion(s), Iron Deficiency Immunologic History: Reports: Other (See Below) Other Immunologic History: lupus Dermatologic History: Reports: None - Infectious Disease History Infectious Disease History: Reports: Chicken Pox - Past Surgical History HEENT Surgical History: Reports: Adenoidectomy, Cataract Surgery, Tonsillectomy GI Surgical History: Reports: None Female Surgical History: Reports: Tubal Ligation Endocrine Surgical History: Reports: Thyroid Biopsy Dermatological Surgical History: Reports: None Social & Family History - Family History Family Medical History: Noncontributory - Tobacco Use Smoking Status *Q: Never Smoker Second Hand Smoke Exposure: No - Caffeine Use Caffeine Use: Reports: Coffee - Alcohol Use Days Per Week of Alcohol Use: 0 - Recreational Drug Use Recreational Drug Use: No H&P Review of Systems - Review of Systems: Review Of Systems: See Below General: Reports: Fever, Malaise, Weakness, Fatigue. Denies: Chills, Night Sweats, Diaphoresis Pulmonary: Reports: Shortness of Breath, Wheezing, Cough, Sputum. Denies: Pleuritic Chest Pain Cardiovascular: Reports: Dyspnea on Exertion. Denies: Chest Pain, Palpitations , Orthopnea, PND, Edema, Lightheadedness, Syncope Gastrointestinal: Denies: Abdominal Pain, Anorexia, Black Stool Genitourinary: Denies: Dysuria, Frequency, Burning Musculoskeletal: Denies: Neck Pain, Shoulder Pain, Arm Pain Skin: Denies: Cyanosis, Jaundice Psychiatric: Reports: Confusion. Denies: Depression, Mood Lability, Anxiety Neurological: Reports: Confusion. Denies: Dizziness, Headache, Numbness Hematologic/Lymphatic: Denies: Anemia, Easy Bleeding Immunologic: Denies: Anaphylaxis Exam - Exam Exam: See Below - Vital Signs Vital Signs: Last Vital Signs Temp 37.4 C 07/08/17 21:08 Pulse 78 07/08/17 20:51 Resp 24 H 07/08/17 19:02 BP 150/67 H 07/08/17 20:51 Pulse Ox 99 07/08/17 20:51 Weight: 63.503 kg - Exam Quality Assessment: Supplemental Oxygen General: No: Alert, Oriented Neck: Supple, Trachea Midline Lungs: Other (Bilateral expiratory wheezes and bilateral lower lobe crepitations ) Cardiovascular: Regular Rate, Regular Rhythm GI/Abdominal Exam: Normal Bowel Sounds, Soft, Non-Tender Extremities: Normal Inspection, Normal Range of Motion, Non-Tender, No Pedal Edema, Normal Capillary Refill - Patient Data Lab Results Last 24 hrs: Laboratory Results - last 24 hr 07/08/17 07/08/17 07/08/17 Range/Units 18:30 18:30 18:30 WBC 6.3 (4.5-11.0) K/uL RBC 3.84 (3.30-5.50) M/uL Hgb 12.0 (12.0-15.0) g/dL Hct 37.5 (36.0-48.0) % MCV 98 (80-98) fL MCH 31 (27-31) pg MCHC 32 (32-36) % Plt Count 227 (150-400) K/uL Neut % (Auto) 66 (36-66) % Lymph % (Auto) 15 L (24-44) % Mason % (Auto) 18 H (2-6) % Eos % (Auto) 2 (2-4) % Baso % (Auto) 0 (0-1) % Sodium 137 L (140-148) mmol/L Potassium 4.0 (3.6-5.2) mmol/L Chloride 101 (100-108) mmol/L Carbon Dioxide 30 (21-32) mmol/L Anion Gap 10.0 (5.0-14.0) mmol/L BUN 17 (7-18) mg/dL Creatinine 0.9 (0.6-1.0) mg/dL Est Cr Clr Drug Dosing 36.14 mL/min Estimated GFR (MDRD) 60 (>60) Glucose 96 (74-106) mg/dL Lactic Acid 1.5 (0.4-2.0) mmol/L Calcium 8.7 (8.5-10.1) mg/dL Total Bilirubin 0.3 D (0.2-1.0) mg/dL AST 22 (15-37) U/L ALT 18 (12-78) U/L Alkaline Phosphatase 57 (46-116) U/L Total Protein 6.8 (6.4-8.2) g/dL Albumin 3.3 L (3.4-5.0) g/dL Globulin 3.5 (2.3-3.5) g/dL Albumin/Globulin Ratio 0.9 L (1.2-2.2) Urine Color Urine Appearance Urine pH (4.5-8.0) Ur Specific Pierpont (1.008-1.030) Urine Protein (NEGATIVE) mg/dL Urine Glucose (UA) (NEGATIVE) mg/dL Urine Ketones (NEGATIVE) mg/dL Urine Occult Blood (NEGATIVE) Urine Nitrite (NEGATIVE) Urine Bilirubin (NEGATIVE) Urine Urobilinogen (NORMAL) mg/dL Ur Leukocyte Esterase (NEGATIVE) Urine RBC (0-5) Urine WBC (0-5) Ur Epithelial Cells Amorphous Sediment Urine Bacteria Urine Mucus 07/08/17 Range/Units 20:14 WBC (4.5-11.0) K/uL RBC (3.30-5.50) M/uL Hgb (12.0-15.0) g/dL Hct (36.0-48.0) % MCV (80-98) fL MCH (27-31) pg MCHC (32-36) % Plt Count (150-400) K/uL Neut % (Auto) (36-66) % Lymph % (Auto) (24-44) % Mason % (Auto) (2-6) % Eos % (Auto) (2-4) % Baso % (Auto) (0-1) % Sodium (140-148) mmol/L Potassium (3.6-5.2) mmol/L Chloride (100-108) mmol/L Carbon Dioxide (21-32) mmol/L Anion Gap (5.0-14.0) mmol/L BUN (7-18) mg/dL Creatinine (0.6-1.0) mg/dL Est Cr Clr Drug Dosing mL/min Estimated GFR (MDRD) (>60) Glucose (74-106) mg/dL Lactic Acid (0.4-2.0) mmol/L Calcium (8.5-10.1) mg/dL Total Bilirubin (0.2-1.0) mg/dL AST (15-37) U/L ALT (12-78) U/L Alkaline Phosphatase (46-116) U/L Total Protein (6.4-8.2) g/dL Albumin (3.4-5.0) g/dL Globulin (2.3-3.5) g/dL Albumin/Globulin Ratio (1.2-2.2) Urine Color Yellow Urine Appearance Slightly cloudy Urine pH 5.0 (4.5-8.0) Ur Specific Pierpont 1.025 (1.008-1.030) Urine Protein Negative (NEGATIVE) mg/dL Urine Glucose (UA) Normal (NEGATIVE) mg/dL Urine Ketones Negative (NEGATIVE) mg/dL Urine Occult Blood Negative (NEGATIVE) Urine Nitrite Negative (NEGATIVE) Urine Bilirubin Small (NEGATIVE) Urine Urobilinogen Normal (NORMAL) mg/dL Ur Leukocyte Esterase Moderate (NEGATIVE) Urine RBC Not seen (0-5) Urine WBC 5-10 H (0-5) Ur Epithelial Cells Moderate Amorphous Sediment Not seen Urine Bacteria Many Urine Mucus Rare Result Diagrams: 07/12/17 09:35 07/12/17 04:50 Contreras Results Last 24 hrs: Microbiology 07/08/17 18:26 Influenza Type A Antigen Screen - Final Nasal Aspirate, Unspecified NEGATIVE INFLUENZA A VIRUS AG Influenza Type B Antigen Screen - Final NEGATIVE INFLUENZA B VIRUS AG *Q Meaningful Use (ADM) - VTE *Q VTE Criteria *Q: - Stroke *Q Stroke Criteria *Q: - AMI *Q AMI Criteria *Q: - Problem List (1) Hyperlipidemia SNOMED Code(s): 46330354 ICD Code: E78.5 - HYPERLIPIDEMIA, UNSPECIFIED Status: Acute Current Visit : Yes (2) Pneumonia SNOMED Code(s): 276569013 ICD Code: J18.9 - PNEUMONIA, UNSPECIFIED ORGANISM Status: Acute Current Visit: Yes (3) COPD (chronic obstructive pulmonary disease) SNOMED Code(s): 36554354 ICD Code: J44.9 - CHRONIC OBSTRUCTIVE PULMONARY DISEASE, UNSPECIFIED Status : Chronic Current Visit: No (4) Essential hypertension SNOMED Code(s): 75374778 ICD Code: I10 - ESSENTIAL (PRIMARY) HYPERTENSION Status: Chronic Current Visit: No (5) Memory changes SNOMED Code(s): 645494903 ICD Code: R41.3 - OTHER AMNESIA Status: Chronic Current Visit: No (6) Renal insufficiency SNOMED Code(s): 016692810 ICD Code: N28.9 - DISORDER OF KIDNEY AND URETER, UNSPECIFIED Status: Chronic Current Visit: No Problem List Initiated/Reviewed/Updated: Yes Orders Last 24hrs: Active Orders 24 hr Category Date Time Status Chest 2V [CR] Urgent Exams 07/08/17 18:26 Taken CULTURE BLOOD [BC] Urgent Lab 07/08/17 18:30 Received CULTURE BLOOD [BC] Urgent Lab 07/08/17 18:30 Received Blood Culture x2 Reflex Set [OM.PC] Urgent Oth 07/08/17 18:27 Ordered Assessment/Plan Comment:: 89-year-old female previous history of Mycobacterium avium complex infection, on 2 L of oxygen, severe COPD, asthma, hypertension, diaphragmatic hernia, hyperlipidemia, memory problem came to the ED with the complaining of shortness or breath and admitted into the hospital with a diagnosis of bilateral pneumonia for further management. (2) Pneumonia (3) COPD (chronic obstructive pulmonary disease) Patient x-ray showed bilateral infiltrates suggesting pneumonia Patient W BC count is at baseline. Monocytes are elevated. Seems like bilateral pneumonia with unknown etiology We'll start her on levofloxacin 500 mg daily along with aztreonem 1 g 3 times daily as patient is allergic to penicillin Urine culture, blood culture, respiratory culture is pending Cannot rule out mycobacterium AVM complex re-infection Will follow respiratory culture and change antibiotics accordingly Thousand NS IV fluid bolus and 125 ml per hour maintenance IV fluids baseline Creatinine is at baseline Lactate levels are 1.5 Cannot rule out influenza induced bilateral pneumonia Influenza swab is negative CBC, BMP tomorrow (4) Essential hypertension (5) Memory changes (6) Renal insufficiency (1) Hyperlipidemia Will continue home medications DVT prophylaxis heparin 5000 units subcutaneous 3 times daily GI prophylaxis pantoprazole once daily IV fluids 125 mL per hour normal saline CODE STATUS DNR/DNI Grigsby catheter not indicated Diet regular diet
[2017-07-08] MEDS ORDERED: Sodium Chloride 0.9% 1,000 ML IV SCH ×2 (21:45→22:15)
[2017-07-08] MEDS ORDERED: Levofloxacin/Dextrose 5%-Water 500 MG in Premix Bag 1 BAG IV SCH (22:00)
[2017-07-08] MEDS: Heparin Sodium 5,000 Units/ML Vial SUBCUT SCH (23:31)
[2017-07-09] MEDS: Heparin Sodium 5,000 Units/ML Vial SUBCUT SCH ×2 (05:41→21:31)
[2017-07-09] MEDS: Oseltamivir 30 MG Cap PO SCH ×2 (08:51→21:31)
[2017-07-09] MEDS ORDERED: Levalbuterol HCl 1.25 MG/3 ML Neb NEB PRN (10:12)
[2017-07-09] MEDS ORDERED: guaiFENesin/Dextromethorphan 100-10 MG/5 ML Soln 10 ML Cup PO PRN (10:13)
[2017-07-09] MEDS ORDERED: Benzonatate 100 MG Cap PO PRN (10:13)
--- NOTE | 2017-07-09 10:16 | PCM.PN ---
- General Info Date of Service: 07/09/17 Functional Status: Reports: Pain Controlled, Tolerating Diet - Review of Systems General: Reports: Fever, Weakness Pulmonary: Reports: Shortness of Breath, Cough Systems Review Comment:: No acute events since the time of admission. She reports that she feels better and her family believes that she looks better and is thinking more clearly. She remains on 2 L of supplemental oxygen. No fevers since the emergency room. Blood pressure and heart rate have been stable. She was able to produce a sputum sample which showed some gram-positive cocci. Appetite and energy are both a little better this morning. - Patient Data Vitals - Most Recent: Last Vital Signs Temp 36.6 C 07/09/17 07:31 Pulse 77 07/09/17 07:31 Resp 17 07/09/17 07:31 BP 142/60 H 07/09/17 07:31 Pulse Ox 96 07/09/17 07:31 Weight - Most Recent: 64.183 kg I&O - Last 24 Hours: Intake & Output 07/08/17 07/09/17 07/09/17 22:59 06:59 14:59 Intake Total 1970 600 Output Total 550 100 Balance 1420 500 Lab Results Last 24 Hours: Laboratory Results - last 24 hr 07/08/17 Range/Units 22:02 Magnesium 1.8 (1.8-2.4) mg/dL Med Orders - Current: Current Medications Acetaminophen (Tylenol) 650 mg PO Q4H PRN PRN Reason: Pain/Fever Benzonatate (Tessalon Perles) 100 mg PO TID PRN PRN Reason: Cough Guaifenesin/Dextromethorphan (Robitussin Dm) 10 ml PO Q4H PRN PRN Reason: Cough Heparin Sodium (Porcine) (Heparin Sodium) 5,000 units SUBCUT Q12H [facility] Levofloxacin/Dextrose (Levaquin In D5w 250 Mg/50 Ml) 100 mls @ 100 mls/hr IV Q24H [facility]ARA Sodium Chloride (Normal Saline) 1,000 mls @ 50 mls/hr IV ASDIRECTED [facility]IARA Levofloxacin/Dextrose 750 mg/ (Premix) 150 mls @ 100 mls/hr IV Q48H [facility] Levalbuterol HCl (Xopenex) 1.25 mg NEB Q4HRRT PRN PRN Reason: Shortness of Breath Levalbuterol HCl (Xopenex) 1.25 mg NEB QIDRT [facility] Ondansetron HCl (Zofran Odt) 4 mg PO Q6H PRN PRN Reason: Nausea able to take PO Oseltamivir Phosphate (Tamiflu) 30 mg PO BID [facility] Last Admin: 07/09/17 08:51 Dose: 30 mg Senna/Docusate Sodium (Senna Plus) 1 tab PO BID PRN PRN Reason: Constipation Discontinued Medications Acetaminophen (Tylenol Bulk Bottle) 650 mg PO NOW ONE Stop: 07/08/17 18:30 Last Admin: 07/08/17 23:38 Dose: Not Given Acetaminophen (Tylenol) 650 mg PO NOW ONE Stop: 07/08/17 18:34 Last Admin: 07/08/17 19:04 Dose: 650 mg Albuterol/Ipratropium (Duoneb 3.0-0.5 Mg/3 Ml) 3 ml NEB QID PRN PRN Reason: Shortness Of Breath/wheezing Heparin Sodium (Porcine) (Heparin Sodium) 5,000 units SUBCUT Q8H [facility] Last Admin: 07/09/17 05:41 Dose: 5,000 units Sodium Chloride (Normal Saline) 1,000 mls @ 125 mls/hr IV ASDIRECTED [facility] Last Admin: 07/09/17 01:56 Dose: 125 mls/hr Levofloxacin/Dextrose 500 mg/ (Premix) 100 mls @ 100 mls/hr IV Q24H [facility] Stop: 07/08/17 23:30 Last Admin: 07/09/17 00:17 Dose: 100 mls/hr Aztreonam 1 gm/ Sodium (Chloride) 50 mls @ 100 mls/hr IV Q8H [facility] Last Admin: 07/09/17 05:41 Dose: 100 mls/hr Sodium Chloride (Normal Saline) 1,000 mls @ 500 mls/hr IV ASDIRECTED [facility] Last Admin: 07/08/17 23:24 Dose: 500 mls/hr Aztreonam/Dextrose 1 gm/ (Premix) 50 mls @ 100 mls/hr IV Q8H [facility] Oseltamivir Phosphate (Tamiflu) 75 mg PO ONETIME ONE Stop: 07/08/17 20:51 Last Admin: 07/08/17 21:06 Dose: 75 mg - Exam Quality Assessment: Supplemental Oxygen General: Alert, Oriented, Cooperative, No Acute Distress Neck: Supple Lungs: Normal Respiratory Effort, Crackles (diffuse crackles both sides all lung gore). No: Wheezing Cardiovascular: Regular Rate, Regular Rhythm GI/Abdominal Exam: Soft, No Distention, Tender (mild, epigastrium) Extremities: No Pedal Edema Skin: Warm, Dry Psy/Mental Status: Alert, Normal Affect - Problem List Review Problem List Initiated/Reviewed/Updated: Yes - My Orders Last 24 Hours: My Active Orders 07/09/17 09:00 Oseltamivir [Tamiflu] 30 mg PO BID 07/09/17 10:08 Admission Status [Patient Status] [ADT] Routine 07/09/17 10:09 Discontinue Telemetry Monitoring [Cardiac Monitoring Discontinue] [RC] Click to Edit 07/09/17 10:10 Acetaminophen [Tylenol] 650 mg PO Q4H PRN 07/09/17 10:12 RT Aerosol Therapy [RC] ASDIRECTED Levalbuterol HCl [Xopenex] 1.25 mg NEB Q4HRRT PRN 07/09/17 10:13 Benzonatate [Tessalon Perles] 100 mg PO TID PRN Dextromethorphan/guaiFENesin [Robitussin DM] 10 ml PO Q4H PRN 07/09/17 10:15 Lactobacillus Rhamnosus GG [Culturelle] 1 cap PO BID Sodium Chloride 0.9% [Normal Saline] 1,000 ml IV ASDIRECTED Tiotropium [Spiriva HandiHaler] 18 mcg INH DAILY 07/09/17 11:00 Levalbuterol HCl [Xopenex] 1.25 mg NEB QIDRT 07/09/17 21:00 Fluticasone/Salmeterol [Advair 100-50] 1 puff INH BID Heparin Sodium 5,000 units SUBCUT Q12H Levofloxacin/Dextrose 5%-Water [Levaquin in D5W 750 MG/150 ML] 750 mg Premix Bag 1 bag IV Q48H 07/10/17 05:00 BASIC METABOLIC PANEL,BMP [CHEM] Timed CBC W/O DIFF,HEMOGRAM [HEME] Timed (1) MAGNESIUM [CHEM] Timed 07/10/17 09:00 FLUoxetine [PROzac] 20 mg PO DAILY Furosemide [Lasix] 20 mg PO DAILY - Plan Plan:: ASSESSMENT AND PLAN - Bilateral pneumonia - increased infiltrates compared to CT scan from a week ago. I suspect acute infection though it's not clear if this is bacterial or possibly influenza with a negative test. Planning to cover both bacterial and viral causes. She does have a history of JAY and has a referral to see a nylon operator in 1 week. -Supplement oxygen -Levofloxacin -Tamiflu -Scheduled and as needed Xopenex nebulizers -Cough suppressant if needed COPD - no evidence for acute exacerbation at this time. She is chronically O2 dependent. -Management as above Possible acute cystitis - urine sample with many bacteria. Cultures pending. Should be covered by antibiotics as above. 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 She does have outpatient follow-up scheduled on Tuesday. -Outpatient follow-up as scheduled Maintenance issues - - DVT prophylaxis - heparin - GI prophylaxis - not indicated - Nutrition - regular diet - Grigsby catheter - not indicated Admission justification - patient has bilateral pneumonia with acute on chronic hypoxic respiratory failure. She will be transitioned to inpatient status today. Disposition - anticipate discharge back to her assisted-living facility when she is stable for discharge. Ross Cheatham M.D.
[2017-07-09] MEDS: Sodium Chloride 0.9% 1,000 ML IV SCH (10:30)
[2017-07-09] MEDS: Levalbuterol HCl 1.25 MG/3 ML Neb NEB SCH ×3 (11:01→21:31)
[2017-07-09] MEDS: Tiotropium Inhaler 18 MCG Inhalation Powder Cap Kit of 5 INH SCH (11:02)
[2017-07-09] MEDS: Formoterol/Mometasone 100-5 MCG 8.8 GM Inhaler IH SCH ×2 (11:02→21:31)
[2017-07-09] MEDS: Lactobacillus Rhamnosus GG (Probiotic) Cap PO SCH ×2 (12:38→21:31)
[2017-07-09] MEDS ORDERED: Aztreonam/Dextrose-Water 1 GM in Premix Bag 1 BAG IV SCH (14:00)
[2017-07-09] MEDS ORDERED: Levofloxacin/Dextrose 5%-Water 100 ML IV SCH (21:00)
[2017-07-09] MEDS ORDERED: Levofloxacin/Dextrose 5%-Water 750 MG in Premix Bag 1 BAG IV SCH (21:00)
[2017-07-09] MEDS ORDERED: Melatonin 3 MG Tab PO PRN (23:02)
[2017-07-09] MEDS: Acetaminophen 325 MG Tab PO PRN (23:18)
[2017-07-10] MEDS: Levalbuterol HCl 1.25 MG/3 ML Neb NEB SCH ×4 (07:32→20:54)
[2017-07-10] MEDS: Formoterol/Mometasone 100-5 MCG 8.8 GM Inhaler IH SCH ×2 (07:32→20:47)
[2017-07-10] MEDS: Tiotropium Inhaler 18 MCG Inhalation Powder Cap Kit of 5 INH SCH (07:33)
[2017-07-10] MEDS: Sodium Chloride 0.9% 1,000 ML IV SCH (07:45)
[2017-07-10] MEDS: Lactobacillus Rhamnosus GG (Probiotic) Cap PO SCH ×2 (07:59→20:46)
[2017-07-10] MEDS: Furosemide 20 MG Tab PO SCH (07:59)
[2017-07-10] MEDS: Oseltamivir 30 MG Cap PO SCH ×2 (07:59→20:46)
[2017-07-10] MEDS: FLUoxetine 20 MG Cap PO SCH (07:59)
[2017-07-10] MEDS: Heparin Sodium 5,000 Units/ML Vial SUBCUT SCH ×2 (08:00→20:46)
[2017-07-10] MEDS: Magnesium Sulfate/Water 2 GM in Premix Bag 1 BAG IV SCH ×2 (09:41→13:44)
--- NOTE | 2017-07-10 11:49 | PCM.PN ---
- General Info Date of Service: 07/10/17 Functional Status: Reports: Pain Controlled, Tolerating Diet - Review of Systems General: Reports: Weakness Pulmonary: Reports: Shortness of Breath, Cough Systems Review Comment:: Difficulty with confusion overnight but was able to get some sleep after a dose of melatonin. Seems less confused this morning but not back to normal. Cough sounds more loose but oxygenation has improved and she is down to 1 L of supplemental oxygen. She did not have any fevers overnight. No new positive culture results as of yet. Vital signs have been stable. - Patient Data Vitals - Most Recent: Last Vital Signs Temp 36.4 C 07/10/17 10:47 Pulse 85 07/10/17 10:47 Resp 18 07/10/17 10:47 BP 140/68 07/10/17 10:47 Pulse Ox 96 07/10/17 10:47 Weight - Most Recent: 68.402 kg I&O - Last 24 Hours: Intake & Output 07/09/17 07/10/17 07/10/17 22:59 06:59 14:59 Intake Total 1006 967 Output Total 550 450 400 Balance 456 517 -400 Lab Results Last 24 Hours: Laboratory Results - last 24 hr 07/10/17 07/10/17 Range/Units 05:56 05:56 WBC 5.1 (4.5-11.0) K/uL RBC 3.35 (3.30-5.50) M/uL Hgb 10.4 L (12.0-15.0) g/dL Hct 32.9 L (36.0-48.0) % MCV 98 (80-98) fL MCH 31 (27-31) pg MCHC 32 (32-36) % Plt Count 211 (150-400) K/uL Sodium 139 L (140-148) mmol/L Potassium 4.0 (3.6-5.2) mmol/L Chloride 102 (100-108) mmol/L Carbon Dioxide 28 (21-32) mmol/L Anion Gap 13.0 (5.0-14.0) mmol/L BUN 10 (7-18) mg/dL Creatinine 0.8 (0.6-1.0) mg/dL Est Cr Clr Drug Dosing 40.66 mL/min Estimated GFR (MDRD) > 60 (>60) Glucose 100 (74-106) mg/dL Calcium 8.1 L (8.5-10.1) mg/dL Magnesium 1.5 L (1.8-2.4) mg/dL Med Orders - Current: Current Medications Acetaminophen (Tylenol) 650 mg PO Q4H PRN PRN Reason: Pain/Fever Last Admin: 07/09/17 23:18 Dose: 650 mg Benzonatate (Tessalon Perles) 100 mg PO TID PRN PRN Reason: Cough Fluoxetine HCl (Prozac) 20 mg PO DAILY [facility] Last Admin: 07/10/17 07:59 Dose: 20 mg Furosemide (Lasix) 20 mg PO DAILY [facility] Last Admin: 07/10/17 07:59 Dose: 20 mg Heparin Sodium (Porcine) (Heparin Sodium) 5,000 units SUBCUT Q12H [facility] Last Admin: 07/10/17 08:00 Dose: 5,000 units Sodium Chloride (Normal Saline) 1,000 mls @ 50 mls/hr IV ASDIRECTED [facility] Last Admin: 07/10/17 07:45 Dose: 50 mls/hr Levofloxacin/Dextrose 750 mg/ (Premix) 150 mls @ 100 mls/hr IV Q48H [facility] Last Admin: 07/09/17 21:32 Dose: 100 mls/hr Magnesium Sulfate 2 gm/ Premix 50 mls @ 25 mls/hr IV Q6H [facility] Stop: 07/10/17 15:59 Last Admin: 07/10/17 09:41 Dose: 25 mls/hr Lactobacillus Rhamnosus (Culturelle) 1 cap PO BID [facility] Last Admin: 07/10/17 07:59 Dose: 1 cap Levalbuterol HCl (Xopenex) 1.25 mg NEB Q4H PRN PRN Reason: Shortness of Breath Levalbuterol HCl (Xopenex) 1.25 mg NEB QIDRT [facility] Last Admin: 07/10/17 11:30 Dose: 1.25 mg Melatonin (Melatonin) 9 mg PO BEDTIME PRN PRN Reason: Sleep Last Admin: 07/09/17 23:18 Dose: 9 mg Mometasone Furoate/Formoterol Fumar (Dulera 100-5 Mcg) 2 puff IH BIDRT [facility] Last Admin: 07/10/17 07:32 Dose: 2 puff Ondansetron HCl (Zofran Odt) 4 mg PO Q6H PRN PRN Reason: Nausea able to take PO Oseltamivir Phosphate (Tamiflu) 30 mg PO BID [facility] Last Admin: 07/10/17 07:59 Dose: 30 mg Senna/Docusate Sodium (Senna Plus) 1 tab PO BID PRN PRN Reason: Constipation Tiotropium [place] (Spiriva Handihaler) 18 mcg INH DAILY@0700 [facility] Last Admin: 07/10/17 07:33 Dose: 18 mcg Discontinued Medications Acetaminophen (Tylenol Bulk Bottle) 650 mg PO NOW ONE Stop: 07/08/17 18:30 Last Admin: 07/08/17 23:38 Dose: Not Given Acetaminophen (Tylenol) 650 mg PO NOW ONE Stop: 07/08/17 18:34 Last Admin: 07/08/17 19:04 Dose: 650 mg Albuterol/Ipratropium (Duoneb 3.0-0.5 Mg/3 Ml) 3 ml NEB QID PRN PRN Reason: Shortness Of Breath/wheezing Guaifenesin/Dextromethorphan (Robitussin Dm) 10 ml PO Q4H PRN PRN Reason: Cough Heparin Sodium (Porcine) (Heparin Sodium) 5,000 units SUBCUT Q8H [facility] Last Admin: 07/09/17 05:41 Dose: 5,000 units Sodium Chloride (Normal Saline) 1,000 mls @ 125 mls/hr IV ASDIRECTED [facility] Last Admin: 07/09/17 01:56 Dose: 125 mls/hr Levofloxacin/Dextrose 500 mg/ (Premix) 100 mls @ 100 mls/hr IV Q24H [facility] Stop: 07/08/17 23:30 Last Admin: 07/09/17 00:17 Dose: 100 mls/hr Aztreonam 1 gm/ Sodium (Chloride) 50 mls @ 100 mls/hr IV Q8H [facility] Last Admin: 07/09/17 05:41 Dose: 100 mls/hr Sodium Chloride (Normal Saline) 1,000 mls @ 500 mls/hr IV ASDIRECTED [facility] Last Admin: 07/08/17 23:24 Dose: 500 mls/hr Aztreonam/Dextrose 1 gm/ (Premix) 50 mls @ 100 mls/hr IV Q8H [facility] Oseltamivir Phosphate (Tamiflu) 75 mg PO ONETIME ONE Stop: 07/08/17 20:51 Last Admin: 07/08/17 21:06 Dose: 75 mg - Exam Quality Assessment: Supplemental Oxygen General: Alert, Oriented, Cooperative, No Acute Distress Neck: Supple Lungs: Normal Respiratory Effort, Crackles (both bases), Rhonchi (diffuse bilateral with expiration, most impressive in upper lungs) Cardiovascular: Regular Rate, Regular Rhythm GI/Abdominal Exam: Soft, No Distention Extremities: No Pedal Edema Psy/Mental Status: Alert, Normal Affect - Problem List Review Problem List Initiated/Reviewed/Updated: Yes - My Orders Last 24 Hours: My Active Orders 07/09/17 11:00 Levalbuterol HCl [Xopenex] 1.25 mg NEB QIDRT 07/09/17 21:00 Heparin Sodium 5,000 units SUBCUT Q12H 07/09/17 23:02 Melatonin 9 mg PO BEDTIME PRN 07/10/17 08:00 Magnesium Sulfate/Water [Magnesium Sulfate 2 GM in Water 50 ML] 2 gm Premix Bag 1 bag IV Q6H 07/10/17 09:00 FLUoxetine [PROzac] 20 mg PO DAILY Furosemide [Lasix] 20 mg PO DAILY 07/10/17 11:47 Convert IV to Saline Lock [OM.PC] Routine 07/10/17 14:00 Dextromethorphan/guaiFENesin [Robitussin DM] 10 ml PO TID 07/10/17 21:00 Melatonin 9 mg PO BEDTIME 07/11/17 05:00 BASIC METABOLIC PANEL,BMP [CHEM] Timed CBC W/O DIFF,HEMOGRAM [HEME] Timed (1) - Plan Plan:: ASSESSMENT AND PLAN - Bilateral pneumonia - increased infiltrates compared to CT scan from a week ago. I suspect acute infection though it's not clear if this is bacterial or possibly influenza with a negative test. Planning to cover both bacterial and viral causes. She does have a history of JAY and has a referral to see a java support engineer in 1 week. -Supplement oxygen -Levofloxacin -Tamiflu -Scheduled and as needed Xopenex nebulizers -Cough suppressant if needed COPD - no evidence for acute exacerbation at this time. She is chronically O2 dependent. -Management as above Possible acute cystitis - urine sample with many bacteria. Culture is pending. Should be covered by antibiotics as above. 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 She does have outpatient follow-up scheduled on Tuesday. -Outpatient follow-up as scheduled Maintenance issues - - DVT prophylaxis - heparin - GI prophylaxis - not indicated - Nutrition - regular diet - Grigsby catheter - not indicated Admission justification - patient has bilateral pneumonia with acute on chronic hypoxic respiratory failure. She was transitioned to inpatient status 07/09. Disposition - anticipate discharge back to her assisted-living facility when she is stable for discharge. Ross Cheatham M.D.
[2017-07-10] MEDS: guaiFENesin/Dextromethorphan 100-10 MG/5 ML Soln 10 ML Cup PO SCH ×2 (13:43→20:46)
[2017-07-10] MEDS: Melatonin 3 MG Tab PO SCH (20:46)
[2017-07-10] MEDS: Acetaminophen 325 MG Tab PO PRN (20:50)
[2017-07-11] MEDS: Levalbuterol HCl 1.25 MG/3 ML Neb NEB SCH ×4 (07:37→20:11)
[2017-07-11] MEDS: Tiotropium Inhaler 18 MCG Inhalation Powder Cap Kit of 5 INH SCH (07:37)
[2017-07-11] MEDS: Formoterol/Mometasone 100-5 MCG 8.8 GM Inhaler IH SCH ×2 (07:38→20:13)
[2017-07-11] MEDS: FLUoxetine 20 MG Cap PO SCH (08:20)
[2017-07-11] MEDS: Lactobacillus Rhamnosus GG (Probiotic) Cap PO SCH ×2 (08:20→20:13)
[2017-07-11] MEDS: Oseltamivir 30 MG Cap PO SCH ×2 (08:21→20:14)
[2017-07-11] MEDS: Furosemide 20 MG Tab PO SCH (08:21)
[2017-07-11] MEDS: guaiFENesin/Dextromethorphan 100-10 MG/5 ML Soln 10 ML Cup PO SCH ×3 (08:21→20:14)
[2017-07-11] MEDS: Heparin Sodium 5,000 Units/ML Vial SUBCUT SCH ×2 (08:21→20:13)
[2017-07-11] MEDS ORDERED: Potassium Chloride 20 MEQ Tab.ER PO ONE ×2 (09:00→17:00)
--- NOTE | 2017-07-11 10:09 | PCM.PN ---
- General Info Date of Service: 07/11/17 Subjective Update: Ms. Quijano is experienced further improvement over the last 24 hours with less shortness of breath and cough. Vital signs have been stable and she has remained afebrile. Appetite has improved as has confusion. - Review of Systems General: Reports: Weakness. Denies: Fever, Chills Pulmonary: Reports: Shortness of Breath, Cough, Wheezing. Denies: Pleuritic Chest Pain, Sputum, Hemoptysis Cardiovascular: Reports: Dyspnea on Exertion. Denies: Chest Pain, Palpitations , Orthopnea, PND, Edema, Lightheadedness Gastrointestinal: Reports: No Symptoms - Patient Data Vitals - Most Recent: Last Vital Signs Temp 98.2 F 07/11/17 06:56 Pulse 82 07/11/17 07:39 Resp 18 07/11/17 06:56 BP 138/47 L 07/11/17 06:56 Pulse Ox 94 L 07/11/17 06:56 Weight - Most Recent: 146 lb 3.193 oz I&O - Last 24 Hours: Intake & Output 07/10/17 07/11/17 07/11/17 22:59 06:59 14:59 Intake Total 720 240 360 Output Total 525 Balance 720 -285 360 Lab Results Last 24 Hours: Laboratory Results - last 24 hr 07/11/17 07/11/17 Range/Units 05:47 05:47 WBC 5.1 (4.5-11.0) K/uL RBC 3.32 (3.30-5.50) M/uL Hgb 10.5 L (12.0-15.0) g/dL Hct 32.5 L (36.0-48.0) % MCV 98 (80-98) fL MCH 32 H (27-31) pg MCHC 32 (32-36) % Plt Count 210 (150-400) K/uL Sodium 141 (140-148) mmol/L Potassium 3.5 L (3.6-5.2) mmol/L Chloride 103 (100-108) mmol/L Carbon Dioxide 31 (21-32) mmol/L Anion Gap 10.5 (5.0-14.0) mmol/L BUN 10 (7-18) mg/dL Creatinine 0.8 (0.6-1.0) mg/dL Est Cr Clr Drug Dosing 40.66 mL/min Estimated GFR (MDRD) > 60 (>60) Glucose 103 (74-106) mg/dL Calcium 7.9 L (8.5-10.1) mg/dL Med Orders - Current: Current Medications Acetaminophen (Tylenol) 650 mg PO Q4H PRN PRN Reason: Pain/Fever Last Admin: 07/10/17 20:50 Dose: 650 mg Benzonatate (Tessalon Perles) 100 mg PO TID PRN PRN Reason: Cough Fluoxetine HCl (Prozac) 20 mg PO DAILY [facility] Last Admin: 07/11/17 08:20 Dose: 20 mg Furosemide (Lasix) 20 mg PO DAILY [facility] Last Admin: 07/11/17 08:21 Dose: 20 mg Guaifenesin/Dextromethorphan (Robitussin Dm) 10 ml PO TID [facility] Last Admin: 07/11/17 08:21 Dose: 10 ml Heparin Sodium (Porcine) (Heparin Sodium) 5,000 units SUBCUT Q12H [facility] Last Admin: 07/11/17 08:21 Dose: 5,000 units Levofloxacin/Dextrose 750 mg/ (Premix) 150 mls @ 100 mls/hr IV Q48H [facility] Last Admin: 07/09/17 21:32 Dose: 100 mls/hr Lactobacillus Rhamnosus (Culturelle) 1 cap PO BID [facility] Last Admin: 07/11/17 08:20 Dose: 1 cap Levalbuterol HCl (Xopenex) 1.25 mg NEB Q4H PRN PRN Reason: Shortness of Breath Levalbuterol HCl (Xopenex) 1.25 mg NEB QIDRT [facility] Last Admin: 07/11/17 07:37 Dose: 1.25 mg Melatonin (Melatonin) 9 mg PO BEDTIME [facility] Last Admin: 07/10/17 20:46 Dose: 9 mg Mometasone Furoate/Formoterol Fumar (Dulera 100-5 Mcg) 2 puff IH BIDRT [facility] Last Admin: 07/11/17 07:38 Dose: 2 puff Ondansetron HCl (Zofran Odt) 4 mg PO Q6H PRN PRN Reason: Nausea able to take PO Oseltamivir Phosphate (Tamiflu) 30 mg PO BID [facility] Last Admin: 07/11/17 08:21 Dose: 30 mg Senna/Docusate Sodium (Senna Plus) 1 tab PO BID PRN PRN Reason: Constipation Tiotropium [place] (Spiriva Handihaler) 18 mcg INH DAILY@0700 [facility] Last Admin: 07/11/17 07:37 Dose: 18 mcg Discontinued Medications Acetaminophen (Tylenol Bulk Bottle) 650 mg PO NOW ONE Stop: 07/08/17 18:30 Last Admin: 07/08/17 23:38 Dose: Not Given Acetaminophen (Tylenol) 650 mg PO NOW ONE Stop: 07/08/17 18:34 Last Admin: 07/08/17 19:04 Dose: 650 mg Albuterol/Ipratropium (Duoneb 3.0-0.5 Mg/3 Ml) 3 ml NEB QID PRN PRN Reason: Shortness Of Breath/wheezing Guaifenesin/Dextromethorphan (Robitussin Dm) 10 ml PO Q4H PRN PRN Reason: Cough Heparin Sodium (Porcine) (Heparin Sodium) 5,000 units SUBCUT Q8H [facility] Last Admin: 07/09/17 05:41 Dose: 5,000 units Sodium Chloride (Normal Saline) 1,000 mls @ 125 mls/hr IV ASDIRECTED [facility] Last Admin: 07/09/17 01:56 Dose: 125 mls/hr Levofloxacin/Dextrose 500 mg/ (Premix) 100 mls @ 100 mls/hr IV Q24H [facility] Stop: 07/08/17 23:30 Last Admin: 07/09/17 00:17 Dose: 100 mls/hr Aztreonam 1 gm/ Sodium (Chloride) 50 mls @ 100 mls/hr IV Q8H [facility] Last Admin: 07/09/17 05:41 Dose: 100 mls/hr Sodium Chloride (Normal Saline) 1,000 mls @ 500 mls/hr IV ASDIRECTED [facility] Last Admin: 07/08/17 23:24 Dose: 500 mls/hr Aztreonam/Dextrose 1 gm/ (Premix) 50 mls @ 100 mls/hr IV Q8H [facility] Sodium Chloride (Normal Saline) 1,000 mls @ 50 mls/hr IV ASDIRECTED [facility] Last Admin: 07/10/17 07:45 Dose: 50 mls/hr Magnesium Sulfate 2 gm/ Premix 50 mls @ 25 mls/hr IV Q6H [facility] Stop: 02/18/18 15:59 Last Admin: 07/10/17 13:44 Dose: 25 mls/hr Melatonin (Melatonin) 9 mg PO BEDTIME PRN PRN Reason: Sleep Last Admin: 07/09/17 23:18 Dose: 9 mg Oseltamivir Phosphate (Tamiflu) 75 mg PO ONETIME ONE Stop: 07/08/17 20:51 Last Admin: 07/08/17 21:06 Dose: 75 mg Potassium Chloride (Klor-Con M20) 40 meq PO ONETIME ONE Stop: 07/11/17 09:01 Last Admin: 07/11/17 09:19 Dose: 40 meq - Exam Quality Assessment: Supplemental Oxygen, DVT Prophylaxis General: Alert, Cooperative, Mild Distress Lungs: Decreased Breath Sounds, Wheezing. No: Crackles, Rales, Rhonchi, Rub Cardiovascular: Regular Rate, Regular Rhythm, No Murmurs GI/Abdominal Exam: Soft, Non-Tender, No Organomegaly, No Distention Extremities: Non-Tender, No Pedal Edema Skin: Warm, Dry, Intact - Problem List Review Problem List Initiated/Reviewed/Updated: Yes - My Orders Last 24 Hours: My Active Orders 07/11/17 10:05 POTASSIUM,K [CHEM] Timed - Plan Plan:: ASSESSMENT AND PLAN - Bilateral pneumonia - increased infiltrates compared to CT scan from a week ago. I suspect acute infection though it's not clear if this is bacterial or possibly influenza with a negative test. Planning to cover both bacterial and viral causes. She does have a history of JAY and has a referral to see a inspector set up and lay out in 1 week. Symptomatically improved over the past 24 hours with less shortness of breath and cough -Supplement oxygen -Levofloxacin -Tamiflu -Scheduled and as needed Xopenex nebulizers -Cough suppressant if needed COPD - no evidence for acute exacerbation at this time. She is chronically O2 dependent. 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 She does have outpatient follow-up scheduled on Tuesday. -Outpatient follow-up as scheduled Maintenance issues - - DVT prophylaxis - heparin - GI prophylaxis - not indicated - Nutrition - regular diet - Grigsby catheter - not indicated Admission justification - patient has bilateral pneumonia with acute on chronic hypoxic respiratory failure. She was transitioned to inpatient status 07/09. Disposition - anticipate discharge back to her assisted-living facility when she is stable for discharge.
[2017-07-11] MEDS ORDERED: Levofloxacin 250 MG Tab PO SCH (10:45)
[2017-07-11] MEDS: Melatonin 3 MG Tab PO SCH (20:13)
[2017-07-12] MEDS ORDERED: Furosemide 20 MG/2 ML VIAL IVPUSH STA ×2 (02:35→03:21)
[2017-07-12] MEDS: Morphine 2 MG/ML Syringe IVPUSH PRN (02:46)
[2017-07-12] MEDS ORDERED: methylPREDNISolone Sodium Succinate 125 MG/2 ML SDV IM ONE (03:19)
[2017-07-12] MEDS ORDERED: methylPREDNISolone Sodium Succinate 125 MG/2 ML SDV IVPUSH STA (03:47)
[2017-07-12] MEDS ORDERED: Aztreonam/Dextrose-Water 1 GM in Premix Bag 1 BAG IV SCH (04:00)
[2017-07-12] MEDS ORDERED: Sodium Chloride 0.9% 50 ML ONE (04:09)
--- NOTE | 2017-07-12 06:02 | PCM.SN ---
- Free Text/Narrative Note: time 2:30; call from 2 [facility]; Mrs. Quijano is having difficulty breathing. She has been up several time to go to the bathroom. Each time has gotten progressively worsen breathing. Concerns of fluid overload vs worsen pneumonia. she is fatigue. she is requesting her children and [employer] be called. o; lungs crackles all lobes A: Pneumonia, COPD p; Morphine 1 - 2 mg IV every 1 hours prn, Lasix 20mg IV now, alvarez cath continue with close monitoring.
[2017-07-12] MEDS: Levalbuterol HCl 1.25 MG/3 ML Neb NEB SCH ×4 (07:20→21:20)
[2017-07-12] MEDS: Formoterol/Mometasone 100-5 MCG 8.8 GM Inhaler IH SCH ×2 (07:24→21:06)
[2017-07-12] MEDS: Tiotropium Inhaler 18 MCG Inhalation Powder Cap Kit of 5 INH SCH (07:24)
[2017-07-12] MEDS: Lactobacillus Rhamnosus GG (Probiotic) Cap PO SCH ×2 (08:05→21:04)
[2017-07-12] MEDS: Heparin Sodium 5,000 Units/ML Vial SUBCUT SCH ×2 (08:05→21:03)
[2017-07-12] MEDS: FLUoxetine 20 MG Cap PO SCH (08:06)
[2017-07-12] MEDS: Furosemide 20 MG Tab PO SCH (08:06)
[2017-07-12] MEDS: guaiFENesin/Dextromethorphan 100-10 MG/5 ML Soln 10 ML Cup PO SCH ×3 (08:06→21:04)
[2017-07-12] MEDS: Oseltamivir 30 MG Cap PO SCH ×2 (08:07→21:06)
--- NOTE | 2017-07-12 09:00 | CR ---
Portable chest Comparison: 3 days prior. There has been interval development of diffuse alveolar infiltrates throughout the right upper, right mid, right lower lobe regions. There is also developing infiltrate in the left lung base. There is v ascular engorgement. There are small effusions. Impression: 1. Bilateral pneumonia, right greater than left. 2. Mild CHF.
[2017-07-12] MEDS ORDERED: methylPREDNISolone Sodium Succinate 125 MG/2 ML SDV IV SCH ×2 (09:45→10:00)
[2017-07-12] MEDS: Cefepime 1 GM in Sodium Chloride 0.9% 50 ML IV SCH ×2 (11:15→18:00)
--- NOTE | 2017-07-12 12:08 | PCM.PN ---
- General Info Date of Service: 07/12/17 Subjective Update: Ms. Quijano unfortunately took a turn for the worse during the night with increased shortness of breath and hypoxia. Chest x-ray showed by lateral infiltrates new from chest x-ray on admission. She received morphine for comfort , aztreonam was added to current antibiotic regimen, and she received 40 mg of IV Lasix. With these interventions she has improved but still continues to experience some respiratory compromise, requiring higher level of supplemental oxygen. - Review of Systems General: Reports: Weakness. Denies: Fever, Chills Pulmonary: Reports: Shortness of Breath, Cough. Denies: Sputum, Wheezing Cardiovascular: Reports: Dyspnea on Exertion. Denies: Chest Pain, Palpitations , Orthopnea, PND, Edema, Lightheadedness Gastrointestinal: Reports: No Symptoms - Patient Data Vitals - Most Recent: Last Vital Signs Temp 98.4 F 07/12/17 11:41 Pulse 102 H 07/12/17 11:41 Resp 24 H 07/12/17 11:41 BP 129/59 L 07/12/17 11:41 Pulse Ox 91 L 07/12/17 11:41 Weight - Most Recent: 147 lb 7.828 oz I&O - Last 24 Hours: Intake & Output 07/11/17 07/12/17 07/12/17 22:59 06:59 14:59 Intake Total 180 360 Output Total 250 475 Balance -70 -475 360 Lab Results Last 24 Hours: Laboratory Results - last 24 hr 07/12/17 07/12/17 Range/Units 04:50 09:35 WBC 15.2 H (4.5-11.0) K/uL RBC 4.13 (3.30-5.50) M/uL Hgb 12.6 D (12.0-15.0) g/dL Hct 40.7 (36.0-48.0) % MCV 99 H (80-98) fL MCH 31 (27-31) pg MCHC 31 L (32-36) % Plt Count 274 (150-400) K/uL Neut % (Auto) 85 H (36-66) % Lymph % (Auto) 7 L (24-44) % [place] % (Auto) 8 H (2-6) % Eos % (Auto) 1 L (2-4) % Baso % (Auto) 0 (0-1) % Potassium 4.6 (3.6-5.2) mmol/L Med Orders - Current: Current Medications Acetaminophen (Tylenol) 650 mg PO Q4H PRN PRN Reason: Pain/Fever Last Admin: 07/10/17 20:50 Dose: 650 mg Benzonatate (Tessalon Perles) 100 mg PO TID PRN PRN Reason: Cough Fluoxetine HCl (Prozac) 20 mg PO DAILY [facility] Last Admin: 07/12/17 08:06 Dose: 20 mg Furosemide (Lasix) 20 mg PO DAILY [facility] Last Admin: 07/12/17 08:06 Dose: 20 mg Furosemide (Lasix) 40 mg IVPUSH NOW ONE Stop: 07/12/17 17:01 Guaifenesin/Dextromethorphan (Robitussin Dm) 10 ml PO TID [facility] Last Admin: 07/12/17 08:06 Dose: 10 ml Heparin Sodium (Porcine) (Heparin Sodium) 5,000 units SUBCUT Q12H [facility] Last Admin: 07/12/17 08:05 Dose: 5,000 units Cefepime HCl 1 gm/ Sodium (Chloride) 50 mls @ 100 mls/hr IV Q8H [facility] Last Admin: 07/12/17 11:15 Dose: 100 mls/hr Lactobacillus Rhamnosus (Culturelle) 1 cap PO BID [facility] Last Admin: 07/12/17 08:05 Dose: 1 cap Levalbuterol HCl (Xopenex) 1.25 mg NEB Q4H PRN PRN Reason: Shortness of Breath Last Admin: 07/12/17 02:21 Dose: 1.25 mg Levalbuterol HCl (Xopenex) 1.25 mg NEB QIDRT [facility] Last Admin: 07/12/17 10:52 Dose: 1.25 mg Levofloxacin 250 mg/ (Levofloxacin 500 mg) 750 mg PO Q48H [facility] Last Admin: 07/11/17 20:13 Dose: 750 mg Melatonin (Melatonin) 9 mg PO BEDTIME [facility] Last Admin: 07/11/17 20:13 Dose: 9 mg Methylprednisolone Sodium Succinate (Solu-Medrol) 40 mg IV Q8H [facility] Mometasone Furoate/Formoterol Fumar (Dulera 100-5 Mcg) 2 puff IH BIDRT [facility] Last Admin: 07/12/17 07:24 Dose: 2 puff Morphine Sulfate (Morphine) 1 - 2 mg IVPUSH Q1H PRN PRN Reason: Shortness of Breath Last Admin: 07/12/17 02:46 Dose: 2 mg Ondansetron HCl (Zofran Odt) 4 mg PO Q6H PRN PRN Reason: Nausea able to take PO Oseltamivir Phosphate (Tamiflu) 30 mg PO BID [facility] Last Admin: 07/12/17 08:07 Dose: 30 mg Senna/Docusate Sodium (Senna Plus) 1 tab PO BID PRN PRN Reason: Constipation Last Admin: 07/12/17 08:11 Dose: 1 tab Tiotropium [place] (Spiriva Handihaler) 18 mcg INH DAILY@0700 [facility] Last Admin: 07/12/17 07:24 Dose: 18 mcg Discontinued Medications Acetaminophen (Tylenol Bulk Bottle) 650 mg PO NOW ONE Stop: 07/08/17 18:30 Last Admin: 07/08/17 23:38 Dose: Not Given Acetaminophen (Tylenol) 650 mg PO NOW ONE Stop: 07/08/17 18:34 Last Admin: 07/08/17 19:04 Dose: 650 mg Albuterol/Ipratropium (Duoneb 3.0-0.5 Mg/3 Ml) 3 ml NEB QID PRN PRN Reason: Shortness Of Breath/wheezing Aztreonam (Azactam) Confirm Administered Dose 1 gm .ROUTE .STK-MED ONE Stop: 07/12/17 04:10 Last Admin: 07/12/17 05:13 Dose: Not Given Furosemide (Lasix) 20 mg IVPUSH ONETIME STA Stop: 07/12/17 02:36 Last Admin: 07/12/17 02:40 Dose: 20 mg Furosemide (Lasix) 20 mg IVPUSH ONETIME STA Stop: 07/12/17 03:22 Last Admin: 07/12/17 03:39 Dose: 20 mg Guaifenesin/Dextromethorphan (Robitussin Dm) 10 ml PO Q4H PRN PRN Reason: Cough Heparin Sodium (Porcine) (Heparin Sodium) 5,000 units SUBCUT Q8H [facility] Last Admin: 07/09/17 05:41 Dose: 5,000 units Sodium Chloride (Normal Saline) 1,000 mls @ 125 mls/hr IV ASDIRECTED [facility] Last Admin: 07/09/17 01:56 Dose: 125 mls/hr Levofloxacin/Dextrose 500 mg/ (Premix) 100 mls @ 100 mls/hr IV Q24H [facility] Stop: 07/08/17 23:30 Last Admin: 07/09/17 00:17 Dose: 100 mls/hr Aztreonam 1 gm/ Sodium (Chloride) 50 mls @ 100 mls/hr IV Q8H [facility] Last Admin: 07/09/17 05:41 Dose: 100 mls/hr Sodium Chloride (Normal Saline) 1,000 mls @ 500 mls/hr IV ASDIRECTED [facility] Last Admin: 07/08/17 23:24 Dose: 500 mls/hr Aztreonam/Dextrose 1 gm/ (Premix) 50 mls @ 100 mls/hr IV Q8H [facility] Sodium Chloride (Normal Saline) 1,000 mls @ 50 mls/hr IV ASDIRECTED [facility] Last Admin: 07/10/17 07:45 Dose: 50 mls/hr Levofloxacin/Dextrose 750 mg/ (Premix) 150 mls @ 100 mls/hr IV Q48H [facility] Last Admin: 07/09/17 21:32 Dose: 100 mls/hr Magnesium Sulfate 2 gm/ Premix 50 mls @ 25 mls/hr IV Q6H [facility] Stop: 07/10/17 15:59 Last Admin: 07/10/17 13:44 Dose: 25 mls/hr Aztreonam 1 gm/ Sodium (Chloride) 50 mls @ 100 mls/hr IV Q8H [facility] Aztreonam/Dextrose 1 gm/ (Premix) 50 mls @ 100 mls/hr IV Q8H [facility] Last Admin: 07/12/17 04:20 Dose: 100 mls/hr Sodium Chloride (Normal Saline) Confirm Administered Dose 50 mls @ as directed .ROUTE .STK-MED ONE Stop: 07/12/17 04:10 Last Admin: 07/12/17 05:13 Dose: Not Given Melatonin (Melatonin) 9 mg PO BEDTIME PRN PRN Reason: Sleep Last Admin: 07/09/17 23:18 Dose: 9 mg Methylprednisolone Sodium Succinate (Solu-Medrol) 62.5 mg IVPUSH ONETIME STA Stop: 07/12/17 03:48 Last Admin: 07/12/17 03:52 Dose: 62.5 mg Methylprednisolone Sodium Succinate (Solu-Medrol) 62.5 mg IV Q6H [facility] Last Admin: 07/12/17 09:05 Dose: 62.5 mg Oseltamivir Phosphate (Tamiflu) 75 mg PO ONETIME ONE Stop: 07/08/17 20:51 Last Admin: 07/08/17 21:06 Dose: 75 mg Potassium Chloride (Klor-Con M20) 40 meq PO ONETIME ONE Stop: 07/11/17 09:01 Last Admin: 07/11/17 09:19 Dose: 40 meq Potassium Chloride (Klor-Con M20) 40 meq PO ONETIME ONE Stop: 07/11/17 17:01 Last Admin: 07/11/17 18:16 Dose: 40 meq - Exam Quality Assessment: Supplemental Oxygen, Urine Catheter, DVT Prophylaxis General: Alert, Oriented, Cooperative, Moderate Distress Lungs: Decreased Breath Sounds, Rhonchi, Wheezing. No: Crackles, Rales, Rub, Stridor Cardiovascular: Regular Rate, Regular Rhythm, No Murmurs GI/Abdominal Exam: Soft, Non-Tender, No Organomegaly, No Distention Extremities: Non-Tender, No Pedal Edema Skin: Warm, Dry - Problem List Review Problem List Initiated/Reviewed/Updated: Yes - My Orders Last 24 Hours: My Active Orders 07/11/17 21:00 Levofloxacin [Levaquin] 750 mg PO Q48H 07/12/17 10:30 Cefepime [Maxipime] 1 gm Sodium Chloride 0.9% [Normal Saline] 50 ml IV Q8H 07/12/17 10:49 Blood Culture x2 Reflex Set [OM.PC] Urgent 07/12/17 10:51 CULTURE BLOOD [BC] Urgent 07/12/17 11:00 CULTURE BLOOD [BC] Urgent 07/12/17 17:00 Furosemide [Lasix] 40 mg IVPUSH NOW ONE methylPREDNISolone Sod Succ [Solu-MEDROL] 40 mg IV Q8H 07/12/17 Lunch Regular Diet [DIET] 07/13/17 05:00 BASIC METABOLIC PANEL,BMP [CHEM] Timed CBC WITH AUTO DIFF [HEME] Timed MAGNESIUM [CHEM] Timed - Plan Plan:: ASSESSMENT AND PLAN - Bilateral pneumonia - increased respiratory compromise over the past 24 hours with more shortness of breath and hypoxia. Cough has significantly improved and she has remained afebrile. White count is elevated although this may be secondary to current glucocorticoid therapy. Still possible bacterial versus viral component. -Supplement oxygen -Continue Levofloxacin and add cefepime 1 g IV every 8 hours -Discontinue aztreonam -Blood cultures repeated -Solu-Medrol 40 mg IV every 8 hours -Furosemide 40 mg IV later today, reassess in a.m. -Tamiflu -Scheduled and as needed Xopenex nebulizers -Cough suppressant if needed COPD exacerbation-secondary to bilateral pneumonia as noted above -Management as above Possible acute cystitis - urine culture growing only mixed riky, significant infection unlikely History of MAC - recent CT scan raised concern for interval recurrence of the infection. She does have outpatient follow-up scheduled on Tuesday. -Outpatient follow-up as scheduled Maintenance issues - - DVT prophylaxis - heparin - GI prophylaxis - not indicated - Nutrition - regular diet - Grigsby catheter - not indicated Admission justification - patient has bilateral pneumonia with acute on chronic hypoxic respiratory failure. She was transitioned to inpatient status 07/09. Disposition - anticipate discharge back to her assisted-living facility when she is stable for discharge.
[2017-07-12] MEDS: methylPREDNISolone Sodium Succinate 40 MG/1 ML SDV IV SCH (16:44)
[2017-07-12] MEDS ORDERED: Furosemide 40 MG/4 ML VIAL IVPUSH ONE (17:00)
[2017-07-12] MEDS: Melatonin 3 MG Tab PO SCH (21:05)
[2017-07-13] MEDS: methylPREDNISolone Sodium Succinate 40 MG/1 ML SDV IV SCH ×3 (01:46→20:39)
[2017-07-13] MEDS: Cefepime 1 GM in Sodium Chloride 0.9% 50 ML IV SCH ×3 (01:46→19:13)
[2017-07-13] MEDS ORDERED: Magnesium Sulfate/Water 2 GM in Premix Bag 1 BAG IV ONE ×2 (06:34→07:45)
[2017-07-13] MEDS: Formoterol/Mometasone 100-5 MCG 8.8 GM Inhaler IH SCH ×2 (07:33→20:40)
[2017-07-13] MEDS: Tiotropium Inhaler 18 MCG Inhalation Powder Cap Kit of 5 INH SCH (07:33)
[2017-07-13] MEDS: Levalbuterol HCl 1.25 MG/3 ML Neb NEB SCH ×4 (07:33→20:39)
[2017-07-13] MEDS: Lactobacillus Rhamnosus GG (Probiotic) Cap PO SCH ×2 (09:57→20:40)
[2017-07-13] MEDS: Heparin Sodium 5,000 Units/ML Vial SUBCUT SCH ×2 (09:57→20:39)
[2017-07-13] MEDS: Furosemide 20 MG Tab PO SCH (09:57)
[2017-07-13] MEDS: Oseltamivir 30 MG Cap PO SCH ×2 (09:57→20:41)
[2017-07-13] MEDS: FLUoxetine 20 MG Cap PO SCH (09:57)
[2017-07-13] MEDS: Magnesium Oxide 400 MG Tab PO SCH ×2 (09:57→20:40)
[2017-07-13] MEDS: guaiFENesin/Dextromethorphan 100-10 MG/5 ML Soln 10 ML Cup PO SCH ×3 (09:57→20:39)
--- NOTE | 2017-07-13 10:08 | PCM.PN ---
- General Info Date of Service: 07/13/17 Subjective Update: Ms. Quijano has improved since yesterday with less shortness of breath and cough. She denies significant symptoms of shortness of breath at rest but does note dyspnea with relatively minimal exertion. Vital signs have been stable and she has been afebrile, cough significantly improved. - Review of Systems General: Reports: Weakness. Denies: Fever, Chills Pulmonary: Reports: Shortness of Breath, Wheezing. Denies: Pleuritic Chest Pain , Cough, Sputum Cardiovascular: Reports: Dyspnea on Exertion. Denies: Chest Pain, Palpitations , Orthopnea, PND, Edema, Lightheadedness Gastrointestinal: Reports: No Symptoms - Patient Data Vitals - Most Recent: Last Vital Signs Temp 98.3 F 07/13/17 07:00 Pulse 100 07/13/17 07:33 Resp 18 07/13/17 07:00 BP 105/55 L 07/13/17 08:00 Pulse Ox 95 07/13/17 07:00 Weight - Most Recent: 146 lb 14.4 oz I&O - Last 24 Hours: Intake & Output 07/12/17 07/13/17 07/13/17 22:59 06:59 14:59 Intake Total 240 295 530 Output Total 1000 550 Balance -760 -255 530 Lab Results Last 24 Hours: Laboratory Results - last 24 hr 07/13/17 07/13/17 Range/Units 05:00 05:00 WBC 11.2 H (4.5-11.0) K/uL RBC 3.54 (3.30-5.50) M/uL Hgb 11.0 L (12.0-15.0) g/dL Hct 33.6 L (36.0-48.0) % MCV 95 (80-98) fL MCH 31 (27-31) pg MCHC 33 (32-36) % Plt Count 156 (150-400) K/uL Neut % (Auto) 94 H (36-66) % Lymph % (Auto) 5 L (24-44) % [place] % (Auto) 2 (2-6) % Eos % (Auto) 0 L (2-4) % Baso % (Auto) 0 (0-1) % Sodium 135 L (140-148) mmol/L Potassium 3.8 (3.6-5.2) mmol/L Chloride 101 (100-108) mmol/L Carbon Dioxide 26 (21-32) mmol/L Anion Gap 11.8 (5.0-14.0) mmol/L BUN 22 H D (7-18) mg/dL Creatinine 1.2 H (0.6-1.0) mg/dL Est Cr Clr Drug Dosing 26.87 mL/min Estimated GFR (MDRD) 43 L (>60) Glucose 329 H (74-106) mg/dL Calcium 8.1 L (8.5-10.1) mg/dL Magnesium 1.7 L (1.8-2.4) mg/dL Med Orders - Current: Current Medications Acetaminophen (Tylenol) 650 mg PO Q4H PRN PRN Reason: Pain/Fever Last Admin: 07/10/17 20:50 Dose: 650 mg Benzonatate (Tessalon Perles) 100 mg PO TID PRN PRN Reason: Cough Fluoxetine HCl (Prozac) 20 mg PO DAILY [facility] Last Admin: 07/13/17 09:57 Dose: 20 mg Furosemide (Lasix) 20 mg PO DAILY [facility] Last Admin: 07/13/17 09:57 Dose: 20 mg Guaifenesin/Dextromethorphan (Robitussin Dm) 10 ml PO TID [facility] Last Admin: 07/13/17 09:57 Dose: 10 ml Heparin Sodium (Porcine) (Heparin Sodium) 5,000 units SUBCUT Q12H [facility] Last Admin: 07/13/17 09:57 Dose: 5,000 units Cefepime HCl 1 gm/ Sodium (Chloride) 50 mls @ 100 mls/hr IV Q8H [facility] Last Admin: 07/13/17 01:46 Dose: 100 mls/hr Lactobacillus Rhamnosus (Culturelle) 1 cap PO BID [facility] Last Admin: 07/13/17 09:57 Dose: 1 cap Levalbuterol HCl (Xopenex) 1.25 mg NEB Q4H PRN PRN Reason: Shortness of Breath Last Admin: 07/12/17 02:21 Dose: 1.25 mg Levalbuterol HCl (Xopenex) 1.25 mg NEB QIDRT [facility] Last Admin: 07/13/17 07:33 Dose: 1.25 mg Levofloxacin 250 mg/ (Levofloxacin 500 mg) 750 mg PO Q48H [facility] Last Admin: 07/11/17 20:13 Dose: 750 mg Magnesium Oxide (Magnesium Oxide) 400 mg PO BID [facility] Last Admin: 07/13/17 09:57 Dose: 400 mg Melatonin (Melatonin) 9 mg PO BEDTIME [facility] Last Admin: 07/12/17 21:05 Dose: 9 mg Methylprednisolone Sodium Succinate (Solu-Medrol) 40 mg IV Q12H [facility] Mometasone Furoate/Formoterol Fumar (Dulera 100-5 Mcg) 2 puff IH BIDRT [facility] Last Admin: 07/13/17 07:33 Dose: 2 puff Morphine Sulfate (Morphine) 1 - 2 mg IVPUSH Q1H PRN PRN Reason: Shortness of Breath Last Admin: 07/12/17 02:46 Dose: 2 mg Ondansetron HCl (Zofran Odt) 4 mg PO Q6H PRN PRN Reason: Nausea able to take PO Oseltamivir Phosphate (Tamiflu) 30 mg PO BID [facility] Last Admin: 07/13/17 09:57 Dose: 30 mg Senna/Docusate Sodium (Senna Plus) 1 tab PO BID PRN PRN Reason: Constipation Last Admin: 07/12/17 08:11 Dose: 1 tab Tiotropium [place] (Spiriva Handihaler) 18 mcg INH DAILY@0700 [facility] Last Admin: 07/13/17 07:33 Dose: 18 mcg Discontinued Medications Acetaminophen (Tylenol Bulk Bottle) 650 mg PO NOW ONE Stop: 07/08/17 18:30 Last Admin: 07/08/17 23:38 Dose: Not Given Acetaminophen (Tylenol) 650 mg PO NOW ONE Stop: 07/08/17 18:34 Last Admin: 07/08/17 19:04 Dose: 650 mg Albuterol/Ipratropium (Duoneb 3.0-0.5 Mg/3 Ml) 3 ml NEB QID PRN PRN Reason: Shortness Of Breath/wheezing Aztreonam (Azactam) Confirm Administered Dose 1 gm .ROUTE .STK-MED ONE Stop: 07/12/17 04:10 Last Admin: 07/12/17 05:13 Dose: Not Given Furosemide (Lasix) 20 mg IVPUSH ONETIME STA Stop: 07/12/17 02:36 Last Admin: 07/12/17 02:40 Dose: 20 mg Furosemide (Lasix) 20 mg IVPUSH ONETIME STA Stop: 07/12/17 03:22 Last Admin: 07/12/17 03:39 Dose: 20 mg Furosemide (Lasix) 40 mg IVPUSH NOW ONE Stop: 07/12/17 17:01 Last Admin: 07/12/17 16:48 Dose: 40 mg Guaifenesin/Dextromethorphan (Robitussin Dm) 10 ml PO Q4H PRN PRN Reason: Cough Heparin Sodium (Porcine) (Heparin Sodium) 5,000 units SUBCUT Q8H [facility] Last Admin: 07/09/17 05:41 Dose: 5,000 units Sodium Chloride (Normal Saline) 1,000 mls @ 125 mls/hr IV ASDIRECTED [facility] Last Admin: 07/09/17 01:56 Dose: 125 mls/hr Levofloxacin/Dextrose 500 mg/ (Premix) 100 mls @ 100 mls/hr IV Q24H [facility] Stop: 07/08/17 23:30 Last Admin: 07/09/17 00:17 Dose: 100 mls/hr Aztreonam 1 gm/ Sodium (Chloride) 50 mls @ 100 mls/hr IV Q8H [facility] Last Admin: 07/09/17 05:41 Dose: 100 mls/hr Sodium Chloride (Normal Saline) 1,000 mls @ [facility] Last Admin: 07/08/17 23:24 Dose: 500 mls/hr Aztreonam/Dextrose 1 gm/ (Premix) 50 mls @ 100 mls/hr IV Q8H [facility] Sodium Chloride (Normal Saline) 1,000 mls @ 50 mls[facility] Last Admin: 07/10/17 07:45 Dose: 50 mls/hr Levofloxacin/Dextrose 750 mg/ (Premix) 150 mls @ 100 mls/hr IV Q48H [facility] Last Admin: 07/09/17 21:32 Dose: 100 mls/hr Magnesium Sulfate 2 gm/ Premix 50 mls @ 25 mls/hr IV Q6H [facility] Stop: 07/10/17 15:59 Last Admin: 07/10/17 13:44 Dose: 25 mls/hr Aztreonam 1 gm/ Sodium (Chloride) 50 mls @ 100 mls/hr IV Q8H [facility] Aztreonam/Dextrose 1 gm/ (Premix) 50 mls @ 100 mls/hr IV Q8H [facility] Last Admin: 07/12/17 04:20 Dose: 100 mls/hr Sodium Chloride (Normal Saline) Confirm Administered Dose 50 mls @ as directed .ROUTE .STK-MED ONE Stop: 07/12/17 04:10 Last Admin: 07/12/17 05:13 Dose: Not Given Magnesium Sulfate 2 gm/ Premix 50 mls @ 25 mls/hr IV ONETIME ONE Stop: 07/13/17 09:44 Last Admin: 07/13/17 08:11 Dose: Not Given Melatonin (Melatonin) 9 mg PO BEDTIME PRN PRN Reason: Sleep Last Admin: 07/09/17 23:18 Dose: 9 mg Methylprednisolone Sodium Succinate (Solu-Medrol) 62.5 mg IVPUSH ONETIME STA Stop: 07/12/17 03:48 Last Admin: 07/12/17 03:52 Dose: 62.5 mg Methylprednisolone Sodium Succinate (Solu-Medrol) 62.5 mg IV Q6H [facility] Last Admin: 07/12/17 09:05 Dose: 62.5 mg Methylprednisolone Sodium Succinate (Solu-Medrol) 40 mg IV Q8H [facility] Last Admin: 07/13/17 09:57 Dose: 40 mg Oseltamivir Phosphate (Tamiflu) 75 mg PO ONETIME ONE Stop: 07/08/17 20:51 Last Admin: 07/08/17 21:06 Dose: 75 mg Potassium Chloride (Klor-Con M20) 40 meq PO ONETIME ONE Stop: 07/11/17 09:01 Last Admin: 07/11/17 09:19 Dose: 40 meq Potassium Chloride (Klor-Con M20) 40 meq PO ONETIME ONE Stop: 07/11/17 17:01 Last Admin: 07/11/17 18:16 Dose: 40 meq - Exam Quality Assessment: Supplemental Oxygen, Urine Catheter, DVT Prophylaxis General: Alert, Oriented, Cooperative, Mild Distress Lungs: Decreased Breath Sounds, Wheezing. No: Crackles, Rales, Rhonchi, Rub Cardiovascular: Regular Rate, Regular Rhythm, No Murmurs GI/Abdominal Exam: Soft, Non-Tender, No Organomegaly, No Distention Extremities: Non-Tender, No Pedal Edema Skin: Warm, Dry, Intact - Problem List Review Problem List Initiated/Reviewed/Updated: Yes - My Orders Last 24 Hours: My Active Orders 07/12/17 10:30 Cefepime [Maxipime] 1 gm Sodium Chloride 0.9% [Normal Saline] 50 ml IV Q8H 07/12/17 10:49 Blood Culture x2 Reflex Set [OM.PC] Urgent 07/12/17 10:51 CULTURE BLOOD [BC] Urgent 07/12/17 11:00 CULTURE BLOOD [BC] Urgent 07/12/17 Lunch Regular Diet [DIET] 07/13/17 09:00 Magnesium Oxide 400 mg PO BID 07/13/17 10:03 Remove Grigsby Catheter [Urinary Catheter Removal] [RC] Per Unit Routine 07/13/17 10:15 methylPREDNISolone Sod Succ [Solu-MEDROL] 40 mg IV Q12H 07/14/17 05:00 BASIC METABOLIC PANEL,BMP [CHEM] Timed CBC WITH AUTO DIFF [HEME] Timed MAGNESIUM [CHEM] Timed - Plan Plan:: Assessment and plan Bilateral pneumonia - improved since yesterday with less shortness of breath and cough -Supplement oxygen -Continue Levofloxacin and cefepime -Discontinue aztreonam -Blood cultures pending -Solu-Medrol 40 mg IV every 12 hours -Tamiflu -Scheduled and as needed Xopenex nebulizers -Cough suppressant if needed COPD exacerbation-secondary to bilateral pneumonia as noted above -Management as above Possible acute cystitis - urine culture growing only mixed riky, significant infection unlikely History of MAC - recent CT scan raised concern for interval recurrence of the infection. She does have outpatient follow-up scheduled on Tuesday. -Outpatient follow-up as scheduled Maintenance issues - - DVT prophylaxis - heparin - GI prophylaxis - not indicated - Nutrition - regular diet - Grigsby catheter - not indicated Admission justification - patient has bilateral pneumonia with acute on chronic hypoxic respiratory failure. She was transitioned to inpatient status 07/09. Disposition - anticipate discharge back to her assisted-living facility when she is stable for discharge.
[2017-07-13] MEDS ORDERED: methylPREDNISolone Sodium Succinate 40 MG/1 ML SDV IV SCH (10:15)
[2017-07-13] MEDS: Melatonin 3 MG Tab PO SCH (20:39)
[2017-07-14] MEDS: Cefepime 1 GM in Sodium Chloride 0.9% 50 ML IV SCH ×2 (02:37→10:26)
[2017-07-14] MEDS: Morphine 2 MG/ML Syringe IVPUSH PRN (02:39)
[2017-07-14] MEDS: Levalbuterol HCl 1.25 MG/3 ML Neb NEB SCH ×4 (07:13→20:52)
[2017-07-14] MEDS: Formoterol/Mometasone 100-5 MCG 8.8 GM Inhaler IH SCH ×2 (07:14→20:45)
[2017-07-14] MEDS: Tiotropium Inhaler 18 MCG Inhalation Powder Cap Kit of 5 INH SCH (07:14)
[2017-07-14] MEDS: Heparin Sodium 5,000 Units/ML Vial SUBCUT SCH ×2 (08:52→20:45)
[2017-07-14] MEDS: Lactobacillus Rhamnosus GG (Probiotic) Cap PO SCH ×2 (08:52→20:44)
[2017-07-14] MEDS: Furosemide 20 MG Tab PO SCH (08:52)
[2017-07-14] MEDS: guaiFENesin/Dextromethorphan 100-10 MG/5 ML Soln 10 ML Cup PO SCH ×3 (08:53→20:46)
[2017-07-14] MEDS: methylPREDNISolone Sodium Succinate 40 MG/1 ML SDV IV SCH (08:53)
[2017-07-14] MEDS: Magnesium Oxide 400 MG Tab PO SCH ×2 (08:53→20:45)
[2017-07-14] MEDS: FLUoxetine 20 MG Cap PO SCH (08:53)
[2017-07-14] MEDS: Oseltamivir 30 MG Cap PO SCH ×2 (08:53→20:46)
--- NOTE | 2017-07-14 12:45 | PCM.PN ---
- General Info Date of Service: 07/14/17 Subjective Update: Ms. Quijano has shown further evidence of improvement over the past 24 hours, she is now walking short distances without severe shortness of breath. Vital signs have been good and she has remained afebrile. Cough is essentially resolved. - Review of Systems General: Reports: Weakness. Denies: Fever, Chills Pulmonary: Reports: Shortness of Breath, Wheezing. Denies: Pleuritic Chest Pain , Cough, Sputum Cardiovascular: Reports: Dyspnea on Exertion. Denies: Chest Pain, Palpitations , Orthopnea, PND, Edema, Lightheadedness Gastrointestinal: Reports: No Symptoms - Patient Data Vitals - Most Recent: Last Vital Signs Temp 97.3 F 07/14/17 09:14 Pulse 97 07/14/17 10:50 Resp 24 H 07/14/17 09:14 BP 126/58 L 07/14/17 09:14 Pulse Ox 95 07/14/17 10:50 Weight - Most Recent: 141 lb 6.4 oz I&O - Last 24 Hours: Intake & Output 07/13/17 07/14/17 07/14/17 22:59 06:59 14:59 Intake Total 295 170 Output Total 200 500 325 Balance -200 -205 -155 Lab Results Last 24 Hours: Laboratory Results - last 24 hr 07/14/17 07/14/17 Range/Units 05:00 05:00 WBC 13.0 H (4.5-11.0) K/uL RBC 3.46 (3.30-5.50) M/uL Hgb 10.6 L (12.0-15.0) g/dL Hct 33.7 L (36.0-48.0) % MCV 97 (80-98) fL MCH 31 (27-31) pg MCHC 32 (32-36) % Plt Count 276 (150-400) K/uL Neut % (Auto) 93 H (36-66) % Lymph % (Auto) 4 L (24-44) % Door % (Auto) 3 (2-6) % Eos % (Auto) 0 L (2-4) % Baso % (Auto) 0 (0-1) % Sodium 138 L (140-148) mmol/L Potassium 4.2 (3.6-5.2) mmol/L Chloride 102 (100-108) mmol/L Carbon Dioxide 31 (21-32) mmol/L Anion Gap 9.2 (5.0-14.0) mmol/L BUN 24 H (7-18) mg/dL Creatinine 1.1 H (0.6-1.0) mg/dL Est Cr Clr Drug Dosing 29.32 mL/min Estimated GFR (MDRD) 47 L (>60) Glucose 164 H (74-106) mg/dL Calcium 8.1 L (8.5-10.1) mg/dL Magnesium 2.3 D (1.8-2.4) mg/dL [place] Results Last 24 Hours: Microbiology 07/12/17 11:00 Aerobic Blood Culture - Preliminary Blood - Arm, Right NO GROWTH AFTER 2 DAYS Anaerobic Blood Culture - Preliminary NO GROWTH AFTER 2 DAYS 07/12/17 10:51 Aerobic Blood Culture - Preliminary Blood - Arm, Right NO GROWTH AFTER 2 DAYS Anaerobic Blood Culture - Preliminary NO GROWTH AFTER 2 DAYS Med Orders - Current: Current Medications Acetaminophen (Tylenol) 650 mg PO Q4H PRN PRN Reason: Pain/Fever Last Admin: 07/10/17 20:50 Dose: 650 mg Benzonatate (Tessalon Perles) 100 mg PO TID PRN PRN Reason: Cough Fluoxetine HCl (Prozac) 20 mg PO DAILY [facility] Last Admin: 07/14/17 08:53 Dose: 20 mg Furosemide (Lasix) 20 mg PO DAILY [facility] Last Admin: 07/14/17 08:52 Dose: 20 mg Guaifenesin/Dextromethorphan (Robitussin Dm) 10 ml PO TID [facility] Last Admin: 07/14/17 08:53 Dose: 10 ml Heparin Sodium (Porcine) (Heparin Sodium) 5,000 units SUBCUT Q12H [facility] Last Admin: 07/14/17 08:52 Dose: 5,000 units Lactobacillus Rhamnosus (Culturelle) 1 cap PO BID [facility] Last Admin: 07/14/17 08:52 Dose: 1 cap Levalbuterol HCl (Xopenex) 1.25 mg NEB Q4H PRN PRN Reason: Shortness of Breath Last Admin: 07/12/17 02:21 Dose: 1.25 mg Levalbuterol HCl (Xopenex) 1.25 mg NEB QIDRT [facility] Last Admin: 07/14/17 10:48 Dose: 1.25 mg Levofloxacin 250 mg/ (Levofloxacin 500 mg) 750 mg PO Q48H [facility] Last Admin: 07/13/17 20:40 Dose: 750 mg Magnesium Oxide (Magnesium Oxide) 400 mg PO BID [facility] Last Admin: 07/14/17 08:53 Dose: 400 mg Melatonin (Melatonin) 9 mg PO BEDTIME [facility] Last Admin: 07/13/17 20:39 Dose: 9 mg Mometasone Furoate/Formoterol Fumar (Dulera 100-5 Mcg) 2 puff IH BIDRT [facility] Last Admin: 07/14/17 07:14 Dose: 2 puff Morphine Sulfate (Morphine) 1 - 2 mg IVPUSH Q1H PRN PRN Reason: Shortness of Breath Last Admin: 07/14/17 02:39 Dose: 2 mg Ondansetron HCl (Zofran Odt) 4 mg PO Q6H PRN PRN Reason: Nausea able to take PO Oseltamivir Phosphate (Tamiflu) 30 mg PO BID [facility] Last Admin: 07/14/17 08:53 Dose: 30 mg Senna/Docusate Sodium (Senna Plus) 1 tab PO BID PRN PRN Reason: Constipation Last Admin: 07/12/17 08:11 Dose: 1 tab Tiotropium [place] (Spiriva Handihaler) 18 mcg INH DAILY@0700 [facility] Last Admin: 07/14/17 07:14 Dose: 18 mcg Discontinued Medications Acetaminophen (Tylenol Bulk Bottle) 650 mg PO NOW ONE Stop: 07/08/17 18:30 Last Admin: 07/08/17 23:38 Dose: Not Given Acetaminophen (Tylenol) 650 mg PO NOW ONE Stop: 07/08/17 18:34 Last Admin: 07/08/17 19:04 Dose: 650 mg Albuterol/Ipratropium (Duoneb 3.0-0.5 Mg/3 Ml) 3 ml NEB QID PRN PRN Reason: Shortness Of Breath/wheezing Aztreonam (Azactam) Confirm Administered Dose 1 gm .ROUTE .STK-MED ONE Stop: 07/12/17 04:10 Last Admin: 07/12/17 05:13 Dose: Not Given Furosemide (Lasix) 20 mg IVPUSH ONETIME STA Stop: 07/12/17 02:36 Last Admin: 07/12/17 02:40 Dose: 20 mg Furosemide (Lasix) 20 mg IVPUSH ONETIME STA Stop: 07/12/17 03:22 Last Admin: 07/12/17 03:39 Dose: 20 mg Furosemide (Lasix) 40 mg IVPUSH NOW ONE Stop: 07/12/17 17:01 Last Admin: 07/12/17 16:48 Dose: 40 mg Guaifenesin/Dextromethorphan (Robitussin Dm) 10 ml PO Q4H PRN PRN Reason: Cough Heparin Sodium (Porcine) (Heparin Sodium) 5,000 units SUBCUT Q8H [facility] Last Admin: 07/09/17 05:41 Dose: 5,000 units Sodium Chloride (Normal Saline) 1,000 mls @ 125 mls/hr IV ASDIRECTED [facility] Last Admin: 07/09/17 01:56 Dose: 125 mls/hr Levofloxacin/Dextrose 500 mg/ (Premix) 100 mls @ 100 mls/hr IV Q24H [facility] Stop: 07/08/17 23:30 Last Admin: 07/09/17 00:17 Dose: 100 mls/hr Aztreonam 1 gm/ Sodium (Chloride) 50 mls @ 100 mls/hr IV Q8H [facility] Last Admin: 07/09/17 05:41 Dose: 100 mls/hr Sodium Chloride (Normal Saline) 1,000 mls @ 500 mls/hr IV ASDIRECTED [facility] Last Admin: 07/08/17 23:24 Dose: 500 mls/hr Aztreonam/Dextrose 1 gm/ (Premix) 50 mls @ 100 mls/hr IV Q8H [facility] Sodium Chloride (Normal Saline) 1,000 mls @ 50 mls/hr IV ASDIRECTED [facility] Last Admin: 07/10/17 07:45 Dose: 50 mls/hr Levofloxacin/Dextrose 750 mg/ (Premix) 150 mls @ 100 mls/hr IV Q48H [facility] Last Admin: 07/09/17 21:32 Dose: 100 mls/hr Magnesium Sulfate 2 gm/ Premix 50 mls @ 25 mls/hr IV Q6H [facility] Stop: 07/10/17 15:59 Last Admin: 07/10/17 13:44 Dose: 25 mls/hr Aztreonam 1 gm/ Sodium (Chloride) 50 mls @ 100 mls/hr IV Q8H [facility] Aztreonam/Dextrose 1 gm/ (Premix) 50 mls @ 100 mls/hr IV Q8H [facility] Last Admin: 07/12/17 04:20 Dose: 100 mls/hr Sodium Chloride (Normal Saline) Confirm Administered Dose 50 mls @ as directed .ROUTE .STK-MED ONE Stop: 07/12/17 04:10 Last Admin: 07/12/17 05:13 Dose: Not Given Cefepime HCl 1 gm/ Sodium (Chloride) 50 mls @ 100 mls/hr IV Q8H [facility] Last Admin: 07/14/17 10:26 Dose: 100 mls/hr Magnesium Sulfate 2 gm/ Premix 50 mls @ 25 mls/hr IV ONETIME ONE Stop: 07/13/17 09:44 Last Admin: 07/13/17 08:11 Dose: Not Given Melatonin (Melatonin) 9 mg PO BEDTIME PRN PRN Reason: Sleep Last Admin: 07/09/17 23:18 Dose: 9 mg Methylprednisolone Sodium Succinate (Solu-Medrol) 62.5 mg IVPUSH ONETIME STA Stop: 07/12/17 03:48 Last Admin: 07/12/17 03:52 Dose: 62.5 mg Methylprednisolone Sodium Succinate (Solu-Medrol) 62.5 mg IV Q6H [facility] Last Admin: 07/12/17 09:05 Dose: 62.5 mg Methylprednisolone Sodium Succinate (Solu-Medrol) 40 mg IV Q8H [facility] Last Admin: 07/13/17 09:57 Dose: 40 mg Methylprednisolone Sodium Succinate (Solu-Medrol) 40 mg IV Q12H [facility] Methylprednisolone Sodium Succinate (Solu-Medrol) 40 mg IV Q12H [facility] Last Admin: 07/14/17 08:53 Dose: 40 mg Oseltamivir Phosphate (Tamiflu) 75 mg PO ONETIME ONE Stop: 07/08/17 20:51 Last Admin: 07/08/17 21:06 Dose: 75 mg Potassium Chloride (Klor-Con M20) 40 meq PO ONETIME ONE Stop: 07/11/17 09:01 Last Admin: 07/11/17 09:19 Dose: 40 meq Potassium Chloride (Klor-Con M20) 40 meq PO ONETIME ONE Stop: 07/11/17 17:01 Last Admin: 07/11/17 18:16 Dose: 40 meq - Exam Quality Assessment: Supplemental Oxygen, DVT Prophylaxis General: Alert, Oriented, Cooperative, Mild Distress Lungs: Decreased Breath Sounds, Wheezing. No: Crackles, Rales, Rhonchi Cardiovascular: Regular Rate, Regular Rhythm, No Murmurs GI/Abdominal Exam: Soft, Non-Tender, No Organomegaly, No Distention Extremities: Non-Tender, No Pedal Edema Skin: Warm, Dry, Intact - Problem List Review Problem List Initiated/Reviewed/Updated: Yes - My Orders Last 24 Hours: My Active Orders 07/14/17 12:45 Cefdinir [Omnicef] 300 mg PO BID 07/15/17 05:00 BASIC METABOLIC PANEL,BMP [CHEM] Timed CBC WITH AUTO DIFF [HEME] Timed MAGNESIUM [CHEM] Timed 07/15/17 09:00 predniSONE 40 mg PO DAILY - Plan Plan:: Assessment and plan Bilateral pneumonia - further improvement over the past 24 hours, now able to do some walking without severe shortness of breath -Supplement oxygen -Continue by mouth levofloxacin, discontinue cefepime and start Omnicef 300 mg every 12 hours -Blood cultures pending -Prednisone 40 mg by mouth daily -Tamiflu -Scheduled and as needed Xopenex nebulizers -Cough suppressant if needed COPD exacerbation-secondary to bilateral pneumonia as noted above -Management as above Possible acute cystitis - urine culture growing only mixed riky, significant infection unlikely History of MAC - recent CT scan raised concern for interval recurrence of the infection. She does have outpatient follow-up scheduled on Tuesday. -Outpatient follow-up as scheduled Maintenance issues - - DVT prophylaxis - heparin - GI prophylaxis - not indicated - Nutrition - regular diet - Grigsby catheter - not indicated Admission justification - patient has bilateral pneumonia with acute on chronic hypoxic respiratory failure. She was transitioned to inpatient status 07/09. Disposition - anticipate discharge back to her assisted-living facility when she is stable for discharge.
[2017-07-14] MEDS: Melatonin 3 MG Tab PO SCH (20:45)
[2017-07-14] MEDS: Cefdinir 300 MG Cap PO SCH (20:46)
[2017-07-15] MEDS: Levalbuterol HCl 1.25 MG/3 ML Neb NEB SCH ×2 (07:09→11:07)
[2017-07-15] MEDS: Formoterol/Mometasone 100-5 MCG 8.8 GM Inhaler IH SCH (07:11)
[2017-07-15] MEDS: Tiotropium Inhaler 18 MCG Inhalation Powder Cap Kit of 5 INH SCH (07:11)
[2017-07-15] MEDS: Heparin Sodium 5,000 Units/ML Vial SUBCUT SCH (08:26)
[2017-07-15] MEDS: Cefdinir 300 MG Cap PO SCH (08:26)
[2017-07-15] MEDS: Magnesium Oxide 400 MG Tab PO SCH (08:26)
[2017-07-15] MEDS: Lactobacillus Rhamnosus GG (Probiotic) Cap PO SCH (08:26)
[2017-07-15] MEDS: Furosemide 20 MG Tab PO SCH (08:26)
[2017-07-15] MEDS: Oseltamivir 30 MG Cap PO SCH (08:27)
[2017-07-15] MEDS: guaiFENesin/Dextromethorphan 100-10 MG/5 ML Soln 10 ML Cup PO SCH ×2 (08:27→13:30)
[2017-07-15] MEDS: FLUoxetine 20 MG Cap PO SCH (08:27)
[2017-07-15] MEDS ORDERED: predniSONE 20 MG Tab PO SCH (09:00)
[2017-07-15 10:22] VITALS: BP 125/52
[2017-07-15] MEDS ORDERED: Magnesium Hydroxide 400 MG/5 ML Susp 30 ML Cup PO PRN (10:24)
[2017-07-15] MEDS ORDERED: Docusate Sodium 100 MG Cap PO PRN (10:26)
--- NOTE | 2017-07-15 13:44 | PCM.DCSUM1 ---
Discharge Summary - Hospital Course Brief History: Ms. Quijano is an 87-year-old woman who is admitted through the emergency department with COPD exacerbation, hypoxia, and bilateral pneumonia. - Discharge Data Discharge Date: 07/15/17 Discharge Disposition: DC/Tfer to [facility] Condition: Fair - Discharge Diagnosis/Problem(s) (1) Hypoxia SNOMED Code(s): 687346528 ICD Code: R09.02 - HYPOXEMIA Status: Acute Current Visit: Yes (2) Pneumonia SNOMED Code(s): 134879270 ICD Code: J18.9 - PNEUMONIA, UNSPECIFIED ORGANISM Status: Acute Current Visit: Yes (3) COPD (chronic obstructive pulmonary disease) SNOMED Code(s): 68783592 ICD Code: J44.9 - CHRONIC OBSTRUCTIVE PULMONARY DISEASE, UNSPECIFIED Status : Chronic Current Visit: No (4) Essential hypertension SNOMED Code(s): 15113881 ICD Code: I10 - ESSENTIAL (PRIMARY) HYPERTENSION Status: Chronic Current Visit: No - Patient Summary/Data Hospital Course: 89-year-old female previous history of Mycobacterium avium complex infection, on 2 L of oxygen, severe COPD, asthma, hypertension, diaphragmatic hernia, hyperlipidemia, memory problem came to the ED with the complaining of shortness or breath and confusional state accompanied with a son. Patient has been staying in [facility] assisted living. Patient was previously diagnosed with Mycobacterium remaining complex and was on 6 month months of antibiotics which was stopped 8 weeks ago. As per son patient has cough, sputum production , generalized weakness, confusional state since last one week which is gradually progressing. Patient recently had CT scan of the chest which showed a questionable acute infection in the bilateral lung gore. Patient CODE STATUS is DNR/DNI. Patient denies any sick contacts. Patient has intermittent fever since last 2 days. In the ED patient received a Tylenol medication which controlled the fever. Patient blood pressures are elevated. Patient denies any chest pain, exertional chest pain, headaches, dizziness, lightheadedness, disturbance in bowel and bladder habits. Patient is otherwise at baseline. On admission she was started on Tamiflu to cover for possible influenza as well as levofloxacin. Initially she did improve somewhat but had ongoing difficulty with cough. Initially did well during the first few days of hospitalization but then developed an episode of exacerbation with increased shortness of breath and wheezing. She was continued on IV steroids and cefepime was added to antibiotic regimen. Over the next 3 days hospitalization she gradually improved with less shortness of breath and resolution of her cough. She remained fairly weak but was able to ambulate in the hallway with supplemental oxygen prior to discharge. On initial evaluation in the emergency department it was suspected that she may have a urinary tract infection, culture grew out mixed riky, making infection much less likely. Potassium and magnesium were found to be low during hospitalization and were replaced with oral and IV supplement. Levels were within normal range at the time of discharge. 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 She will remain on oral antibiotic therapy for an additional 2 days as well as oral prednisone for 2 days. Follow-up appointment will be scheduled with her primary care provider within one week. He will be as tolerated and she will resume her usual diet. - Discharge Plan Prescriptions/Med Rec: Cefdinir [IJD: Cefdinir] 300 mg PO BID #4 capsule Levalbuterol HCl [Xopenex] 1.25 mg NEB QIDRT #120 neb Prednisone [IJD: predniSONE] 40 mg PO DAILY #4 tablet Home Medications: Home Meds FLUoxetine [PROzac] 20 mg PO DAILY 10/04/14 [History] Fluticasone/Salmeterol [Advair 100-50] 1 puff INH BID 10/04/14 [History] Furosemide [Lasix] 20 mg PO DAILY 10/04/14 [History] Tiotropium [Spiriva HandiHaler] 18 mcg INH DAILY 10/04/14 [History] Albuterol Sulfate [Proair Hfa] 1 - 2 puff IH Q4H PRN 06/28/16 [History] Benzonatate 200 mg PO TID PRN 08/27/16 [History] L.acidoph,Paracasei, B.lactis [Probiotic] 1 each PO BID 08/27/16 [History] *B12 1,000 mcg PO DAILY 07/08/17 [History] *Barrier Cream 07/08/17 [History] *Fleet Enema PRN 07/08/17 [History] *Immodium 2 mg PO ASDIRECTED PRN 07/08/17 [History] *Maalox 30 ml PO ASDIRECTED PRN 07/08/17 [History] *Milk Of Magnesia 30 ml PO ASDIRECTED PRN 07/08/17 [History] *Prednisolone Acetate 1 drop EYELF BID 07/08/17 [History] *Sodium Chloride 5% EYELF 07/08/17 [History] *Tussin Dm 10 ml PO ASDIRECTED PRN 07/08/17 [History] Acetaminophen [Tylenol] 650 mg PO ASDIRECTED PRN 07/08/17 [History] Acetaminophen [Tylenol] 650 supp RECTAL ASDIRECTED PRN 07/08/17 [History] Bisacodyl 10 mg RECTAL PRN 07/08/17 [History] Cefdinir [IJD: Cefdinir] 300 mg PO BID #4 capsule 07/15/17 [Rx] Levalbuterol HCl [Xopenex] 1.25 mg NEB QIDRT #120 neb 07/15/17 [Rx] Prednisone [IJD: predniSONE] 40 mg PO DAILY #4 tablet 07/15/17 [Rx] Patient Handouts: Incentive Spirometer Forms: ED Department Discharge Referrals: Axel Arreola MD [Primary Care Provider] - - Patient Data Vitals - Most Recent: Last Vital Signs Temp 96.7 F 07/15/17 10:20 Pulse 100 07/15/17 11:07 Resp 18 07/15/17 10:20 BP 125/52 L 07/15/17 10:20 Pulse Ox 93 L 07/15/17 11:07 Weight - Most Recent: 142 lb 9.6 oz I&O - Last 24 hours: Intake & Output 07/14/17 07/15/17 07/15/17 22:59 06:59 14:59 Intake Total 720 Output Total 200 700 300 Balance -200 -700 420 Lab Results - Last 24 hrs: Laboratory Results - last 24 hr 07/15/17 07/15/17 Range/Units 04:30 04:30 WBC 11.0 (4.5-11.0) K/uL RBC 3.37 (3.30-5.50) M/uL Hgb 10.6 L (12.0-15.0) g/dL Hct 33.2 L (36.0-48.0) % MCV 99 H (80-98) fL MCH 32 H (27-31) pg MCHC 32 (32-36) % Plt Count 293 (150-400) K/uL Neut % (Auto) 82 H (36-66) % Lymph % (Auto) 8 L (24-44) % [place] % (Auto) 10 H (2-6) % Eos % (Auto) 0 L (2-4) % Baso % (Auto) 0 (0-1) % Sodium 140 (140-148) mmol/L Potassium 4.1 (3.6-5.2) mmol/L Chloride 103 (100-108) mmol/L Carbon Dioxide 32 (21-32) mmol/L Anion Gap 5.3 (5.0-14.0) mmol/L BUN 26 H (7-18) mg/dL Creatinine 1.0 (0.6-1.0) mg/dL Est Cr Clr Drug Dosing 32.25 mL/min Estimated GFR (MDRD) 53 L (>60) Glucose 144 H (74-106) mg/dL Calcium 8.1 L (8.5-10.1) mg/dL Magnesium 2.3 (1.8-2.4) mg/dL [facility]IL[facility] Results - Last 24 hrs: Microbiology 07/12/17 11:00 Aerobic Blood Culture - Preliminary Blood - Arm, Right NO GROWTH AFTER 3 DAYS Anaerobic Blood Culture - Preliminary NO GROWTH AFTER 3 DAYS 07/12/17 10:51 Aerobic Blood Culture - Preliminary Blood - Arm, Right NO GROWTH AFTER 3 DAYS Anaerobic Blood Culture - Preliminary NO GROWTH AFTER 3 DAYS Med Orders - Current: Current Medications Acetaminophen (Tylenol) 650 mg PO Q4H PRN PRN Reason: Pain/Fever Last Admin: 07/10/17 20:50 Dose: 650 mg Benzonatate (Tessalon Perles) 100 mg PO TID PRN PRN Reason: Cough Cefdinir (Omnicef) 300 mg PO BID [facility] Last Admin: 07/15/17 08:26 Dose: 300 mg Docusate Sodium (Colace) 100 mg PO DAILY PRN PRN Reason: Constipation Last Admin: 07/15/17 10:53 Dose: 100 mg Fluoxetine HCl (Prozac) 20 mg PO DAILY [facility] Last Admin: 07/15/17 08:27 Dose: 20 mg Furosemide (Lasix) 20 mg PO DAILY [facility] Last Admin: 07/15/17 08:26 Dose: 20 mg Guaifenesin/Dextromethorphan (Robitussin Dm) 10 ml PO TID [facility] Last Admin: 07/15/17 13:30 Dose: 10 ml Heparin Sodium (Porcine) (Heparin Sodium) 5,000 units SUBCUT Q12H [facility] Last Admin: 07/15/17 08:26 Dose: 5,000 units Lactobacillus Rhamnosus (Culturelle) 1 cap PO BID [facility] Last Admin: 07/15/17 08:26 Dose: 1 cap Levalbuterol HCl (Xopenex) 1.25 mg NEB Q4H PRN PRN Reason: Shortness of Breath Last Admin: 07/12/17 02:21 Dose: 1.25 mg Levalbuterol HCl (Xopenex) 1.25 mg NEB QIDRT [facility] Last Admin: 07/15/17 11:07 Dose: 1.25 mg Levofloxacin 250 mg/ (Levofloxacin 500 mg) 750 mg PO Q48H [facility] Last Admin: 07/13/17 20:40 Dose: 750 mg Magnesium Hydroxide (Milk Of Magnesia) 30 ml PO BID PRN PRN Reason: Constipation Last Admin: 07/15/17 10:53 Dose: 30 ml Magnesium Oxide (Magnesium Oxide) 400 mg PO BID [facility] Last Admin: 07/15/17 08:26 Dose: 400 mg Melatonin (Melatonin) 9 mg PO BEDTIME [facility] Last Admin: 07/14/17 20:45 Dose: 9 mg Mometasone Furoate/Formoterol Fumar (Dulera 100-5 Mcg) 2 puff IH BIDRT [facility] Last Admin: 07/15/17 07:11 Dose: 2 puff Morphine Sulfate (Morphine) 1 - 2 mg IVPUSH Q1H PRN PRN Reason: Shortness of Breath Last Admin: 07/14/17 02:39 Dose: 2 mg Ondansetron HCl (Zofran Odt) 4 mg PO Q6H PRN PRN Reason: Nausea able to take PO Oseltamivir Phosphate (Tamiflu) 30 mg PO BID [facility] Last Admin: 07/15/17 08:27 Dose: 30 mg Prednisone (Prednisone) 40 mg PO DAILY [facility] Last Admin: 07/15/17 08:27 Dose: 40 mg Senna/Docusate Sodium (Senna Plus) 1 tab PO BID PRN PRN Reason: Constipation Last Admin: 07/15/17 10:03 Dose: 1 tab Tiotropium [place] (Spiriva Handihaler) 18 mcg INH DAILY@0700 [facility] Last Admin: 07/15/17 07:11 Dose: 18 mcg Discontinued Medications Acetaminophen (Tylenol Bulk Bottle) 650 mg PO NOW ONE Stop: 07/08/17 18:30 Last Admin: 07/08/17 23:38 Dose: Not Given Acetaminophen (Tylenol) 650 mg PO NOW ONE Stop: 07/08/17 18:34 Last Admin: 07/08/17 19:04 Dose: 650 mg Albuterol/Ipratropium (Duoneb 3.0-0.5 Mg/3 Ml) 3 ml NEB QID PRN PRN Reason: Shortness Of Breath/wheezing Aztreonam (Azactam) Confirm Administered Dose 1 gm .ROUTE .STK-MED ONE Stop: 07/12/17 04:10 Last Admin: 07/12/17 05:13 Dose: Not Given Furosemide (Lasix) 20 mg IVPUSH ONETIME STA Stop: 07/12/17 02:36 Last Admin: 07/12/17 02:40 Dose: 20 mg Furosemide (Lasix) 20 mg IVPUSH ONETIME STA Stop: 07/12/17 03:22 Last Admin: 07/12/17 03:39 Dose: 20 mg Furosemide (Lasix) 40 mg IVPUSH NOW ONE Stop: 07/12/17 17:01 Last Admin: 07/12/17 16:48 Dose: 40 mg Guaifenesin/Dextromethorphan (Robitussin Dm) 10 ml PO Q4H PRN PRN Reason: Cough Heparin Sodium (Porcine) (Heparin Sodium) 5,000 units SUBCUT Q8H [facility] Last Admin: 07/09/17 05:41 Dose: 5,000 units Sodium Chloride (Normal Saline) 1,000 mls @ 125 mls/hr IV ASDIRECTED [facility] Last Admin: 07/09/17 01:56 Dose: 125 mls/hr Levofloxacin/Dextrose 500 mg/ (Premix) 100 mls @ 100 mls/hr IV Q24H [facility] Stop: 07/08/17 23:30 Last Admin: 07/09/17 00:17 Dose: 100 mls/hr Aztreonam 1 gm/ Sodium (Chloride) 50 mls @ 100 mls/hr IV Q8H [facility] Last Admin: 07/09/17 05:41 Dose: 100 mls/hr Sodium Chloride (Normal Saline) 1,000 mls @ 500 mls/hr IV ASDIRECTED [facility] Last Admin: 07/08/17 23:24 Dose: 500 mls/hr Aztreonam/Dextrose 1 gm/ (Premix) 50 mls @ 100 mls/hr IV Q8H [facility] Sodium Chloride (Normal Saline) 1,000 mls @ 50 mls/hr IV ASDIRECTED [facility] Last Admin: 07/10/17 07:45 Dose: 50 mls/hr Levofloxacin/Dextrose 750 mg/ (Premix) 150 mls @ 100 mls/hr IV Q48H [facility] Last Admin: 07/09/17 21:32 Dose: 100 mls/hr Magnesium Sulfate 2 gm/ Premix 50 mls @ 25 mls/hr IV Q6H [facility] Stop: 07/10/17 15:59 Last Admin: 07/10/17 13:44 Dose: 25 mls/hr Aztreonam 1 gm/ Sodium (Chloride) 50 mls @ 100 mls/hr IV Q8H [facility] Aztreonam/Dextrose 1 gm/ (Premix) 50 mls @ 100 mls/hr IV Q8H [facility] Last Admin: 07/12/17 04:20 Dose: 100 mls/hr Sodium Chloride (Normal Saline) Confirm Administered Dose 50 mls @ as directed .ROUTE .STK-MED ONE Stop: 07/12/17 04:10 Last Admin: 07/12/17 05:13 Dose: Not Given Cefepime HCl 1 gm/ Sodium (Chloride) 50 mls @ 100 mls/hr IV Q8H [facility] Last Admin: 07/14/17 10:26 Dose: 100 mls/hr Magnesium Sulfate 2 gm/ Premix 50 mls @ 25 mls/hr IV ONETIME ONE Stop: 07/13/17 09:44 Last Admin: 07/13/17 08:11 Dose: Not Given Melatonin (Melatonin) 9 mg PO BEDTIME PRN PRN Reason: Sleep Last Admin: 07/09/17 23:18 Dose: 9 mg Methylprednisolone Sodium Succinate (Solu-Medrol) 62.5 mg IVPUSH ONETIME STA Stop: 07/12/17 03:48 Last Admin: 07/12/17 03:52 Dose: 62.5 mg Methylprednisolone Sodium Succinate (Solu-Medrol) 62.5 mg IV Q6H [facility] Last Admin: 07/12/17 09:05 Dose: 62.5 mg Methylprednisolone Sodium Succinate (Solu-Medrol) 40 mg IV Q8H [facility] Last Admin: 07/13/17 09:57 Dose: 40 mg Methylprednisolone Sodium Succinate (Solu-Medrol) 40 mg IV Q12H [facility] Methylprednisolone Sodium Succinate (Solu-Medrol) 40 mg IV Q12H [facility] Last Admin: 07/14/17 08:53 Dose: 40 mg Oseltamivir Phosphate (Tamiflu) 75 mg PO ONETIME ONE Stop: 07/08/17 20:51 Last Admin: 07/08/17 21:06 Dose: 75 mg Potassium Chloride (Klor-Con M20) 40 meq PO ONETIME ONE Stop: 07/11/17 09:01 Last Admin: 07/11/17 09:19 Dose: 40 meq Potassium Chloride (Klor-Con M20) 40 meq PO ONETIME ONE Stop: 07/11/17 17:01 Last Admin: 07/11/17 18:16 Dose: 40 meq *Q Meaningful Use (DIS) - VTE *Q VTE Criteria *Q: - Stroke *Q Stroke Criteria *Q: - AMI *Q AMI Criteria *Q:
== END 2017-07-15 14:00 | DRG 190 ==
LOC: JP.ED 16:14 → JP.MS 21:40 → JP.ED 22:19 → OBSVTOIN 07-09 10:08
PROVIDERS: ADMIT Family Medicine; ATTEND Hospitalist
DX: J44.0 Chronic obstructive pulmonary disease with (acute) lower respiratory infection (principal); J18.9 Pneumonia, unspecified organism; J96.21 Acute and chronic respiratory failure with hypoxia; A31.0 Pulmonary mycobacterial infection; J44.1 Chronic obstructive pulmonary disease with (acute) exacerbation; I10 Essential (primary) hypertension; Z66 Do not resuscitate; R06.02 Shortness of breath; R50.9 Fever, unspecified; R41.0 Disorientation, unspecified; R41.3 Other amnesia; N28.9 Disorder of kidney and ureter, unspecified; Z99.81 Dependence on supplemental oxygen; Z79.899 Other long term (current) drug therapy; E87.6 Hypokalemia; E83.42 Hypomagnesemia; E78.5 Hyperlipidemia, unspecified; M54.9 Dorsalgia, unspecified; G89.29 Other chronic pain; F32.9 Major depressive disorder, single episode, unspecified; Z87.01 Personal history of pneumonia (recurrent); H54.7 Unspecified visual loss; H35.30 Unspecified macular degeneration; Z79.52 Long term (current) use of systemic steroids; Z88.0 Allergy status to penicillin; Z88.8 Allergy status to other drugs, medicaments and biological substances
CPT/HCPCS: 36415; 71046; 80053; 81001; 83605; 83735; 85025; 87040 ×2; 87086; 87804 ×2; 93005; 96361; 96365; 96367; 99285 ×2; A9270 ×4; G0378 ×2; J1644 ×2; J1956; J7040 ×2; J7050 ×2; 71045; 71045-26; 80048; 84132; 85027; 87070; 87205; 93010; 94640; 94640-76; 94664; 97110-GP; 97116-GP; 97162-GP; J0692; J1940; J2270; J2920; J2930; J3475; J3490; J7612; S0073

== ENCOUNTER 2017-07-19 15:40 | Inpatient (IN) | payer MEDICARE, BC ==
[2017-07-19] MEDS ORDERED: Polyethylene Glycol 3350 Powder 17 GM Packet PO PRN (16:32)
[2017-07-19] MEDS ORDERED: Sodium Chloride 0.9% 10 ML Syringe FLUSH PRN (16:32)
[2017-07-19] MEDS ORDERED: Acetaminophen 650 MG Supp RECTAL PRN (16:32)
[2017-07-19] MEDS ORDERED: Ondansetron 4 MG Tab.DIS PO PRN (16:32)
[2017-07-19] MEDS ORDERED: Benzonatate 100 MG Cap PO PRN (16:35)
--- NOTE | 2017-07-19 16:44 | PCM.HP ---
H&P History of Present Illness - General Date of Service: 07/19/17 Admit Problem/Dx: Admission Diagnosis/Problem Admission Diagnosis/Problem CHF, Congestive heart failure Source of Information: Patient, Family, Provider History Limitations: Reports: Altered Mental Status (lethargic) - History of Present Illness Initial Comments - Free Text/Narative: Felicita presents as a direct admission from the clinic. She is lethargic at this time and does not provide much in the way of history but does answer some questions. Some of the history is gathered from healthcare providers and her family. She was discharged from the hospital a few days ago and did well for a couple of days but over the past 2 days has gone downhill with increasing shortness of breath, orthopnea and lower extremity swelling. She reports a cough that has been productive for clear sputum. She has been increasingly weak and her appetite has trailed off some. She reports some mild pleuritic sounding chest pain that occurs intermittently. Oxygenation has been stable on 2 L/m. She has completed her antibiotics. Family reports that she has been making statements saying that she does not want any more testing and just wants to be done and kept comfortable over the past day or 2. She was evaluated by home care today and they did not feel she was a good rehabilitation candidate. Workup in the walk-in clinic today revealed a mild leukocytosis as well as a low -grade temperature elevation. They felt with her weakness and temperature elevation that she may have recurrence of her pneumonia and needed hospital admission. Her chest x-ray appeared similar to a recent imaging with no impressive infiltrate noted. - Related Data Allergies/Adverse Reactions: Allergies Allergy/AdvReac Type Severity Reaction Status Date / Time Penicillins Allergy Hives Verified 07/08/17 18:30 albuterol [From DuoNeb] AdvReac Confusion Verified 07/08/17 18:30 ipratropium [From DuoNeb] AdvReac Confusion Verified 07/08/17 18:30 Home Medications: Home Meds Fluticasone/Salmeterol [Advair 100-50] 1 puff INH BID 10/04/14 [History] Furosemide [Lasix] 20 mg PO DAILY 10/04/14 [History] Tiotropium [Spiriva HandiHaler] 18 mcg INH DAILY 10/04/14 [History] Benzonatate 200 mg PO TID PRN 08/27/16 [History] L.acidoph,Paracasei, B.lactis [Probiotic] 1 each PO BID 08/27/16 [History] *B12 1,000 mcg PO DAILY 07/08/17 [History] *Barrier Cream 07/08/17 [History] *Fleet Enema PRN 07/08/17 [History] *Immodium 2 mg PO ASDIRECTED PRN 07/08/17 [History] *Maalox 30 ml PO ASDIRECTED PRN 07/08/17 [History] *Milk Of Magnesia 30 ml PO ASDIRECTED PRN 07/08/17 [History] *Prednisolone Acetate 1 drop EYELF BID 07/08/17 [History] *Sodium Chloride 5% EYELF 07/08/17 [History] *Tussin Dm 10 ml PO ASDIRECTED PRN 07/08/17 [History] Acetaminophen [Tylenol] 650 mg PO ASDIRECTED PRN 07/08/17 [History] Acetaminophen [Tylenol] 650 supp RECTAL ASDIRECTED PRN 07/08/17 [History] Bisacodyl 10 mg RECTAL DAILY 07/08/17 [History] Levalbuterol HCl [Xopenex] 1.25 mg NEB QIDRT #120 neb 07/15/17 [Rx] FLUoxetine HCl [Prozac] 20 mg PO DAILY 07/19/17 [History] Past Medical History HEENT History: Reports: Cataract, Impaired Vision, Macular Degeneration Cardiovascular History: Reports: SOB on Exertion Respiratory History: Reports: Asthma, Bronchitis, Recurrent, COPD, Pneumonia, Recurrent, SOB, Other (See Below) Other Respiratory History: 02 @ 2 liters, mycobacterium avium intracellulare, pneumonia Gastrointestinal History: Reports: None Genitourinary History: Reports: Other (See Below) Other Genitourinary History: surgery -kidney reattached TECHNICAL SOLUTION ARCHITECT History: Reports: Ectopic , , Spontaneous Musculoskeletal History: Reports: Back Pain, Chronic, Neck Pain, Chronic, Osteoarthritis Neurological History: Reports: Headaches, Chronic Psychiatric History: Reports: Depression Endocrine/Metabolic History: Reports: Hypothyroidism, Vitamin D Deficiency Hematologic History: Reports: Blood Transfusion(s), Iron Deficiency Immunologic History: Reports: Other (See Below) Other Immunologic History: lupus Dermatologic History: Reports: None - Infectious Disease History Infectious Disease History: Reports: Chicken Pox - Past Surgical History Head Surgeries/Procedures: Reports: None HEENT Surgical History: Reports: Adenoidectomy, Cataract Surgery, Tonsillectomy GI Surgical History: Reports: None Female Surgical History: Reports: Tubal Ligation Endocrine Surgical History: Reports: Thyroid Biopsy Dermatological Surgical History: Reports: None Social & Family History - Family History Family Medical History: Noncontributory - Tobacco Use Smoking Status *Q: Never Smoker Second Hand Smoke Exposure: No - Caffeine Use Caffeine Use: Reports: Coffee - Alcohol Use Days Per Week of Alcohol Use: 0 - Recreational Drug Use Recreational Drug Use: No H&P Review of Systems - Review of Systems: Review Of Systems: Unable To Obtain Free Text/Narrative: pt lethargic and did not respond to all of my questions. The questions she did answer have been included in the HPI Exam - Exam Exam: See Below - Vital Signs Vital Signs: Last Vital Signs Temp 38.1 C 07/19/17 16:04 Pulse 95 07/19/17 16:04 Resp 20 07/19/17 16:04 BP 139/57 L 07/19/17 16:04 Pulse Ox 31 L 07/19/17 16:04 Weight: 65.2 kg - Exam Quality Assessment: Supplemental Oxygen General: Alert, Cooperative, Mild Distress. No: Oriented HEENT: Conjunctiva Clear. No: Mucosa Moist & [place] (dry), Scleral Icterus Neck: Supple, Trachea Midline. No: Lymphadenopathy Lungs: Normal Respiratory Effort, Crackles (mild diffuse crackles). No: Wheezing Cardiovascular: Regular Rate, Regular Rhythm. No: Systolic Murmur GI/Abdominal Exam: Normal Bowel Sounds, Soft, Non-Tender, No Distention Back Exam: Normal Inspection. No: Full Range of Motion Extremities: Pedal Edema. No: Increased Warmth Peripheral Pulses: 1+: Dorsalis Pedis (L), Dorsalis Pedis (R) Skin: Warm, Dry Neuro Extensive - Mental Status: Alert, Slow Response to Commands. No: Oriented x3 Neuro Extensive - Motor, Sensory, Reflexes: CN II-XII Intact. No: Dysarthria, Tremor Psychiatric: Alert, Normal Affect - Patient Data Lab Results Last 24 hrs: Creatinine 0.9 WBC 15 BNP <200 Imaging Impressions Last 24 hrs: CXR - images personally reviewed. Small left effusion with some atelectasis. No obvious infiltrate. No CHF/edema. Vasculature normal. *Q Meaningful Use (ADM) - VTE *Q VTE Criteria *Q: - VTE Risk Assess *Q Each Risk Factor Represents 1 Point: Swollen Legs, Current, Obesity ( BMI > 25 kg/m2), Serious lung disease including pneumonia, Abnormal Pulmonary Function ( COPD) Total Score 1 Point Risk Factors: 4 Each Risk Factor Represents 2 Points: None Total Score 2 Point Risk Factors: 0 Each Risk Factor Represents 3 Points: Age 75 Years or Greater Total Score 3 Point Risk Factors: 3 Each Risk Factor Represents 5 Points: None Total Score 5 Point Risk Factors: 0 Venous Thromboembolism Risk Factor Score *Q: 7 - Stroke *Q Stroke Criteria *Q: - AMI *Q AMI Criteria *Q: - Problem List (1) CHF (congestive heart failure) SNOMED Code(s): 52027973 ICD Code: I50.9 - HEART FAILURE, UNSPECIFIED Status: Acute Current Visit : Yes Qualifiers: Heart failure type: unspecified Heart failure chronicity: acute Qualified Code(s): I50.9 - Heart failure, unspecified (2) Pneumonia SNOMED Code(s): 438789687 ICD Code: J18.9 - PNEUMONIA, UNSPECIFIED ORGANISM Status: Acute Current Visit: No Qualifiers: Pneumonia type: due to unspecified organism Laterality: left Lung location: lower lobe of lung Qualified Code(s): J18.1 - Lobar pneumonia, unspecified organism (3) COPD (chronic obstructive pulmonary disease) SNOMED Code(s): 77066936 ICD Code: J44.9 - CHRONIC OBSTRUCTIVE PULMONARY DISEASE, UNSPECIFIED Status : Chronic Current Visit: No Qualifiers: Emphysema type: unspecified Problem List Initiated/Reviewed/Updated: Yes Orders Last 24hrs: Active Orders 24 hr Category Date Time Status Patient Status [ADT] Routine ADT 07/19/17 16:32 Ordered Bedrest Bedside Commode [RC] ASDIRECTED Care 07/19/17 16:32 Ordered Dietary Supplements [RC] TIDMEALS Care 07/19/17 16:38 Ordered Insert Grigsby Catheter [Insert Urinary Catheter] [OM.PC] Care 07/19/17 16:45 Ordered Q24H Intake and Output [RC] QSHIFT Care 07/19/17 16:33 Ordered Notify Provider Vital Signs [RC] ASDIRECTED Care 07/19/17 16:33 Ordered Oxygen Therapy [RC] PRN Care 07/19/17 16:32 Ordered Up With Assistance [RC] ASDIRECTED Care 07/19/17 16:32 Ordered Urinary Catheter Assessment [RC] ASDIRECTED Care 07/19/17 16:36 Ordered VTE/DVT Education [RC] Per Unit Routine Care 07/19/17 16:32 Ordered Vital Signs [RC] Q4H Care 07/19/17 16:32 Ordered PT Evaluation and Treatment [CONS] Routine Cons 07/20/17 07:00 Ordered Regular Diet [DIET] Diet 07/19/17 Dinner Ordered Echo Comp wo Cont [US] Routine Exams 07/21/17 07:00 Ordered BASIC METABOLIC PANEL,BMP [CHEM] AM Lab 07/20/17 05:11 Ordered C-REACTIVE PROTEIN [CHEM] AM Lab 07/20/17 05:11 Ordered CBC W/O DIFF,HEMOGRAM [HEME] AM Lab 07/20/17 05:11 Ordered CULTURE RESPIRATORY + SMEAR [RM] Routine Lab 07/19/17 16:32 Ordered Acetaminophen [Tylenol] Med 07/19/17 16:32 Ordered 650 mg PO Q4H PRN Acetaminophen [Tylenol] Med 07/19/17 16:32 Ordered 650 mg RECTAL Q4H PRN Benzonatate [Tessalon Perles] Med 07/19/17 16:35 Ordered 100 mg PO TID PRN Docusate Sodium/Sennosides [Senna Plus] Med 07/19/17 16:32 Ordered 1 tab PO BID PRN Doxycycline [Vibramycin] Med 07/19/17 21:00 Ordered 100 mg PO BID FLUoxetine [PROzac] Med 07/20/17 09:00 Ordered 20 mg PO DAILY Fluticasone/Salmeterol [Advair 100-50] Med 07/19/17 21:00 Ordered 1 puff INH BID Furosemide [Lasix] Med 07/19/17 16:35 Once 40 mg IVPUSH ONETIME ONE Lactobacillus Rhamnosus GG [Culturelle] Med 07/19/17 21:00 Ordered 1 cap PO BID Levalbuterol HCl [Xopenex] Med 07/19/17 21:00 Ordered 1.25 mg NEB QIDRT Magnesium Sulfate/Water [Magnesium Sulfate 2 GM in Med 07/19/17 16:45 Ordered Water 50 ML] 2 gm Premix Bag 1 bag IV Q6H Meropenem [Merrem] 1 gm Med 07/19/17 16:45 Ordered Sodium Chloride 0.9% [Normal Saline] 100 ml IV Q8H Ondansetron [Zofran ODT] Med 07/19/17 16:32 Ordered 4 mg PO Q6H PRN Polyethylene Glycol 3350 [MiraLAX] Med 07/19/17 16:32 Ordered 17 gm PO DAILY PRN Sodium Chloride 0.9% [Saline Flush] Med 07/19/17 16:32 Ordered 10 ml FLUSH ASDIRECTED PRN Tiotropium [Spiriva HandiHaler] Med 07/20/17 09:00 Ordered 18 mcg INH DAILY predniSONE Med 07/20/17 08:00 Ordered 20 mg PO WITHBREAKFAST Antiembolic Hose [OM.PC] Per Unit Routine Oth 07/19/17 16:33 Ordered Saline Lock Insert [OM.PC] Routine Oth 07/19/17 16:32 Ordered Resuscitation Status Routine Resus Stat 07/19/17 16:32 Ordered Assessment/Plan Comment:: ASSESSMENT AND PLAN - Possible congestive heart failure - symptoms of orthopnea, shortness of breath and progressive lower extremity edema raise concern for heart failure. Right- sided heart failure is a possibility given her chronic lung disease. She does not carry a history of heart failure. Examination consistent with heart failure though imaging did not correlate and her BNP level was normal. -Insert Grigsby catheter -Furosemide this evening -Reassess volume status in the morning -Echocardiogram when available Possible recurrent/persistent pneumonia - no impressive infiltrate noted on the chest x-ray but recent treatment for bilateral pneumonia. She did have a low- grade fever in the clinic and her white count is elevated. She also has a history of Mycobacterium avium intracellulare infection and there is concern for recurrence. At this point she is too sick to make the trip to [place] as an outpatient for bronchoscopy. Today she is not interested in bronchoscopy or any additional workup at all. I'm planning to cover patient with broad-spectrum antibiotics tonight and then discuss additional workup again tomorrow. I did offer her a bronchoscopy here in town but reviewed the limitations of our testing versus that of a yardage control operator forming. -Doxycycline and meropenem -Sputum culture if able -Scheduled nebulizers COPD, oxygen dependent - baseline lung function is not great and she is normally on 2 L of oxygen. She is not currently wheezing but has had recent steroids which were stopped abruptly a couple of days ago. I'm concerned that this may have led to her deterioration and plan to restart medium dose steroids and taper with a recent therapy. -Prednisone 20 mg daily -Supplement oxygen -Continue home medications Maintenance issues - - DVT prophylaxis - JARED stockings - GI prophylaxis - not indicated - Nutrition - regular - Grigsby catheter - will be placed for strict intake and output monitoring CODE STATUS - DNR/DNI Admission justification - This patient will be admitted for inpatient services and is medically appropriate meeting medical necessity for inpatient admission as outlined in my documentation. I reasonably expect the patient will require inpatient services that span a period time over 2 midnights. I reasonably expect this patient to be discharged or transferred within 96 hours after admission to the [facility]. Disposition - I would anticipate discharge possibly to assisted living versus the longterm after the hospital stay. The possibility of hospice care has been discussed but further information and discussions need to be held. Primary care physician - Dr. Maxwell Cheatham M.D.
[2017-07-19] MEDS ORDERED: Furosemide 40 MG/4 ML VIAL IVPUSH ONE (17:15)
[2017-07-19] MEDS: Magnesium Sulfate/Water 2 GM in Premix Bag 1 BAG IV SCH ×2 (17:52→23:55)
[2017-07-19] MEDS ORDERED: Non-Formulary Medication 1 Each (Fluticasone/Salmeterol [Advair 100-50] 1 PUFF) INH SCH (21:00)
[2017-07-19] MEDS: Levalbuterol HCl 1.25 MG/3 ML Neb NEB SCH (21:17)
[2017-07-19] MEDS: Lactobacillus Rhamnosus GG (Probiotic) Cap PO SCH (21:24)
[2017-07-19] MEDS: Doxycycline 100 MG Cap PO SCH (21:24)
[2017-07-19] MEDS: Formoterol/Mometasone 100-5 MCG 8.8 GM Inhaler IH SCH (21:25)
[2017-07-20] MEDS: Magnesium Sulfate/Water 2 GM in Premix Bag 1 BAG IV SCH (05:15)
[2017-07-20] MEDS: Levalbuterol HCl 1.25 MG/3 ML Neb NEB SCH ×4 (07:17→21:28)
[2017-07-20] MEDS: Formoterol/Mometasone 100-5 MCG 8.8 GM Inhaler IH SCH ×2 (07:18→21:33)
[2017-07-20] MEDS: Tiotropium Inhaler 18 MCG Inhalation Powder Cap Kit of 5 INH SCH (07:18)
[2017-07-20] MEDS ORDERED: predniSONE 20 MG Tab PO SCH (08:00)
[2017-07-20] MEDS: Lactobacillus Rhamnosus GG (Probiotic) Cap PO SCH ×2 (08:58→20:17)
[2017-07-20] MEDS: Doxycycline 100 MG Cap PO SCH (08:58)
[2017-07-20] MEDS: FLUoxetine 20 MG Cap PO SCH (08:58)
[2017-07-20] MEDS ORDERED: Furosemide 40 MG/4 ML VIAL IVPUSH ONE (12:04)
--- NOTE | 2017-07-20 12:06 | PCM.PN ---
- General Info Date of Service: 07/20/17 Functional Status: Reports: Pain Controlled. Denies: Ambulating - Review of Systems General: Reports: Fever, Weakness, Fatigue Pulmonary: Reports: Shortness of Breath, Cough Psychiatric: Reports: Confusion Systems Review Comment:: No acute events overnight but patient has not improved significantly since yesterday. She remains very fatigued and lethargic and sleeps most of the time. She will answer some more direct questions but stays awake only for a short while. She did have a fever overnight. Heart rate has been mildly tachycardic. Supplemental oxygen requirements have increased slightly from yesterday. I discussed the situation again with her 3 boys who are present. Patient has been saying that she is tired and does not want additional treatment. She is unable to participate today. We reviewed potential workup which would be somewhat invasive versus continuing current level of care versus comfort cares. They would like to continue current treatment with the changes mentioned in the assessment and plan and give this a little more time before we decide on additional workup versus comfort care. - Patient Data Vitals - Most Recent: Last Vital Signs Temp 37.7 C 07/20/17 11:19 Pulse 103 H 07/20/17 11:19 Resp 27 H 07/20/17 11:19 BP 138/49 L 07/20/17 11:19 Pulse Ox 97 07/20/17 11:19 Weight - Most Recent: 65.2 kg I&O - Last 24 Hours: Intake & Output 07/19/17 07/20/17 07/20/17 22:59 06:59 14:59 Intake Total 550 390 Output Total 425 1275 Balance 125 -885 Lab Results Last 24 Hours: Laboratory Results - last 24 hr 07/20/17 07/20/17 Range/Units 05:11 06:22 WBC 20.2 H (4.5-11.0) K/uL RBC 3.64 (3.30-5.50) M/uL Hgb 11.6 L (12.0-15.0) g/dL Hct 34.6 L (36.0-48.0) % MCV 95 (80-98) fL MCH 32 H (27-31) pg MCHC 34 (32-36) % Plt Count 157 (150-400) K/uL Sodium 138 L (140-148) mmol/L Potassium 4.4 (3.6-5.2) mmol/L Chloride 98 L (100-108) mmol/L Carbon Dioxide 34 H (21-32) mmol/L Anion Gap 10.4 (5.0-14.0) mmol/L BUN 17 (7-18) mg/dL Creatinine 1.1 H (0.6-1.0) mg/dL Est Cr Clr Drug Dosing 29.57 mL/min Estimated GFR (MDRD) 47 L (>60) Glucose 133 H (74-106) mg/dL Calcium 8.2 L (8.5-10.1) mg/dL C-Reactive Protein 17.11 H (0.0-0.3) mg/dL [place]reras Results Last 24 Hours: Microbiology 07/19/17 19:10 Gram Stain - Final Sputum - Expectorated Med Orders - Current: Current Medications Acetaminophen (Tylenol) 650 mg PO Q4H PRN PRN Reason: Pain (Mild 1-3)/fever Acetaminophen (Tylenol) 650 mg RECTAL Q4H PRN PRN Reason: Mild pain/fever Benzonatate (Tessalon Perles) 100 mg PO TID PRN PRN Reason: Cough Fluoxetine HCl (Prozac) 20 mg PO DAILY [facility] Last Admin: 07/20/17 08:58 Dose: 20 mg Meropenem 1 gm/ Sodium (Chloride) 50 mls @ 100 mls/hr IV Q12H [facility] Last Admin: 07/20/17 04:42 Dose: 100 mls/hr Lactobacillus Rhamnosus (Culturelle) 1 cap PO BID [facility] Last Admin: 07/20/17 08:58 Dose: 1 cap Levalbuterol HCl (Xopenex) 1.25 mg NEB QIDRT [facility] Last Admin: 07/20/17 11:17 Dose: 1.25 mg Mometasone Furoate/Formoterol Fumar (Dulera 100-5 Mcg) 2 puff IH BIDRT [facility] Last Admin: 07/20/17 07:18 Dose: 2 puff Ondansetron HCl (Zofran Odt) 4 mg PO Q6H PRN PRN Reason: Nausea able to take PO Polyethylene Glycol (Miralax) 17 gm PO DAILY PRN PRN Reason: Constipation Senna/Docusate Sodium (Senna Plus) 1 tab PO BID PRN PRN Reason: Constipation Sodium Chloride (Saline Flush) 10 ml FLUSH ASDIRECTED PRN PRN Reason: Keep Vein Open Tiotropium [place] (Spiriva Handihaler) 18 mcg INH DAILYRT [facility] Last Admin: 07/20/17 07:18 Dose: 1 cap Discontinued Medications Doxycycline Hyclate (Vibramycin) 100 mg PO BID [facility] Last Admin: 07/20/17 08:58 Dose: 100 mg Furosemide (Lasix) 40 mg IVPUSH ONETIME ONE Stop: 07/19/17 17:16 Last Admin: 07/19/17 17:46 Dose: 40 mg Magnesium Sulfate 2 gm/ Premix 50 mls @ 25 mls/hr IV Q6H [facility] Stop: 07/20/17 07:59 Last Admin: 07/20/17 05:15 Dose: 25 mls/hr Meropenem 1 gm/ Sodium (Chloride) 50 mls @ 100 mls/hr IV Q8H [facility] Prednisone (Prednisone) 20 mg PO WITHBREAKFAST [facility] Last Admin: 07/20/17 08:58 Dose: 20 mg - Exam Quality Assessment: Supplemental Oxygen General: Alert, Cooperative, No Acute Distress, Lethargic Neck: Supple Lungs: Rhonchi (diffuse), Wheezing (moderate exp wheezing ). No: Normal Respiratory Effort (increased work of breathing) Cardiovascular: Regular Rhythm, No Murmurs, Tachycardia GI/Abdominal Exam: Soft, No Distention Extremities: Pedal Edema Skin: Warm, Dry Psy/Mental Status: Alert, Other (lethargic) - Problem List & Annotations (1) CHF (congestive heart failure) SNOMED Code(s): 86938807 Code(s): I50.9 - HEART FAILURE, UNSPECIFIED Status: Acute Current Visit: Yes Qualifiers: Heart failure type: unspecified Heart failure chronicity: acute Qualified Code(s): I50.9 - Heart failure, unspecified (2) Pneumonia SNOMED Code(s): 852906893 Code(s): J18.9 - PNEUMONIA, UNSPECIFIED ORGANISM Status: Acute Current Visit: No Qualifiers: Pneumonia type: due to unspecified organism Laterality: left Lung location: lower lobe of lung Qualified Code(s): J18.1 - Lobar pneumonia, unspecified organism (3) COPD (chronic obstructive pulmonary disease) SNOMED Code(s): 79864746 Code(s): J44.9 - CHRONIC OBSTRUCTIVE PULMONARY DISEASE, UNSPECIFIED Status : Chronic Current Visit: No Qualifiers: Emphysema type: unspecified (4) Palliative care encounter SNOMED Code(s): 911447525 Code(s): Z51.5 - ENCOUNTER FOR PALLIATIVE CARE Status: Acute Current Visit: Yes - Problem List Review Problem List Initiated/Reviewed/Updated: Yes - My Orders Last 24 Hours: My Active Orders 07/19/17 16:32 Patient Status [ADT] Routine Bedrest Bedside Commode [RC] ASDIRECTED Oxygen Therapy [RC] PRN Up With Assistance [RC] ASDIRECTED VTE/DVT Education [RC] Per Unit Routine Vital Signs [RC] Q4H Acetaminophen [Tylenol] 650 mg PO Q4H PRN Acetaminophen [Tylenol] 650 mg RECTAL Q4H PRN Docusate Sodium/Sennosides [Senna Plus] 1 tab PO BID PRN Ondansetron [Zofran ODT] 4 mg PO Q6H PRN Polyethylene Glycol 3350 [MiraLAX] 17 gm PO DAILY PRN Sodium Chloride 0.9% [Saline Flush] 10 ml FLUSH ASDIRECTED PRN Saline Lock Insert [OM.PC] Routine Resuscitation Status Routine 07/19/17 16:33 Intake and Output [RC] QSHIFT Notify Provider Vital Signs [RC] ASDIRECTED Antiembolic Hose [OM.PC] Per Unit Routine 07/19/17 16:35 Benzonatate [Tessalon Perles] 100 mg PO TID PRN 07/19/17 16:36 Urinary Catheter Assessment [RC] ASDIRECTED 07/19/17 16:38 Dietary Supplements [RC] TIDMEALS 07/19/17 16:45 Insert Grigsby Catheter [Insert Urinary Catheter] [OM.PC] Q24H 07/19/17 17:30 Meropenem [Merrem] 1 gm Sodium Chloride 0.9% [Normal Saline] 50 ml IV Q12H 07/19/17 19:10 CULTURE RESPIRATORY + SMEAR [RM] Routine 07/19/17 21:00 Doxycycline [Vibramycin] 100 mg PO BID Lactobacillus Rhamnosus GG [Culturelle] 1 cap PO BID Levalbuterol HCl [Xopenex] 1.25 mg NEB QIDRT Mometasone/Formoterol [Dulera 100-5 MCG] 2 puff IH BIDRT 07/19/17 Dinner Regular Diet [DIET] 07/20/17 07:00 PT Evaluation and Treatment [CONS] Routine Tiotropium [Spiriva HandiHaler] 18 mcg INH DAILYRT 07/20/17 08:00 predniSONE 20 mg PO WITHBREAKFAST 07/20/17 09:00 FLUoxetine [PROzac] 20 mg PO DAILY 07/20/17 12:04 Furosemide [Lasix] 40 mg IVPUSH ONETIME ONE 07/20/17 16:00 methylPREDNISolone Sod Succ [Solu-MEDROL] 62.5 mg IVPUSH Q8H 07/20/17 21:00 Doxycycline [Vibramycin] 100 mg Sodium Chloride 0.9% [Normal Saline] 100 ml IV Q12HR 07/21/17 05:00 BASIC METABOLIC PANEL,BMP [CHEM] Timed CBC W/O DIFF,HEMOGRAM [HEME] Timed (1) 07/21/17 07:00 Echo Comp wo Cont [US] Routine - Plan Plan:: ASSESSMENT AND PLAN - Possible congestive heart failure - symptoms of orthopnea, shortness of breath and progressive lower extremity edema raise concern for heart failure. Right- sided heart failure is a possibility given her chronic lung disease. Still some evidence for volume overload and she would benefit from additional diuresis. Echocardiogram will be available tomorrow. -Continue Grigsby catheter -Furosemide this morning -Reassess volume status in the morning -Echocardiogram when available Possible recurrent/persistent pneumonia - supplemental oxygen requirement has increased. Patient remains very lethargic. There is some wheezing noted on examination today. Family is contemplating continuing current level of care versus transitioning to comfort care. Sputum sample did show gram-positive cocci on the Gram stain. -Doxycycline and meropenem -Increased steroid dosing -Follow-up sputum culture COPD, oxygen dependent - baseline lung function is not great and she is normally on 2 L of oxygen. She is now wheezing and has impaired airflow. Supplemental oxygen requirement has increased. -transition steroids to IV -Supplement oxygen -Continue Xopenex nebulizers -Continue home medications Palliative care - the patient is not currently able to participate in care planning but family does not want aggressive or painful interventions or workup undertaken. They are not interested in heroic measures such as CPR or intubation. Maintenance issues - - DVT prophylaxis - JARED stockings - GI prophylaxis - not indicated - Nutrition - regular - Grigsby catheter - placed for strict intake and output monitoring Disposition - I would anticipate discharge possibly to assisted living versus the [facility]dc after the hospital stay. The possibility of hospice care has been discussed but further information and discussions need to be held. Primary care physician - Dr. Maxwell Cheatham M.D.
[2017-07-20] MEDS: Acetaminophen 325 MG Tab PO PRN (14:38)
[2017-07-20] MEDS: Morphine 10 MG/0.5 ML Oral Syringe PO PRN (16:20)
[2017-07-20] MEDS: methylPREDNISolone Sodium Succinate 125 MG/2 ML SDV IVPUSH SCH ×2 (16:24→23:55)
[2017-07-20] MEDS: Doxycycline 100 MG in Sodium Chloride 0.9% 100 ML IV SCH (21:29)
[2017-07-21] MEDS: Levalbuterol HCl 1.25 MG/3 ML Neb NEB SCH ×4 (07:18→20:23)
[2017-07-21] MEDS: Tiotropium Inhaler 18 MCG Inhalation Powder Cap Kit of 5 INH SCH (07:26)
[2017-07-21] MEDS: Formoterol/Mometasone 100-5 MCG 8.8 GM Inhaler IH SCH ×2 (07:26→20:23)
[2017-07-21] MEDS: methylPREDNISolone Sodium Succinate 125 MG/2 ML SDV IVPUSH SCH ×3 (08:12→23:20)
[2017-07-21] MEDS: Doxycycline 100 MG in Sodium Chloride 0.9% 100 ML IV SCH ×2 (08:13→20:29)
[2017-07-21] MEDS: Lactobacillus Rhamnosus GG (Probiotic) Cap PO SCH ×2 (08:13→20:23)
[2017-07-21] MEDS: FLUoxetine 20 MG Cap PO SCH (08:13)
--- NOTE | 2017-07-21 13:53 | PCM.PN ---
- General Info Date of Service: 07/21/17 Functional Status: Reports: Pain Controlled, Tolerating Diet - Review of Systems General: Reports: Fever, Weakness Pulmonary: Reports: Shortness of Breath, Cough Systems Review Comment:: Patient was febrile yesterday afternoon but there were no acute events overnight. She has shown significant improvement in her respiratory and mental status over the past 12+ hours. She is alert and interactive and was up to the chair yesterday evening and it was again this morning. She continues to be weak and has a loose cough. She is on 2-3 L of supplemental oxygen. Appetite is improved but not back to baseline. Cultures remain negative. We had a long discussion today about potential management options including hospice care versus her current level of care versus a higher level of care and additional workup. At this time she would like to think about things and discussed them with her family. - Patient Data Vitals - Most Recent: Last Vital Signs Temp 36.9 C 07/21/17 11:00 Pulse 90 07/21/17 11:14 Resp 20 07/21/17 11:00 BP 128/81 07/21/17 11:00 Pulse Ox 100 07/21/17 11:00 Weight - Most Recent: 65.2 kg I&O - Last 24 Hours: Intake & Output 07/20/17 07/21/17 07/21/17 22:59 06:59 14:59 Intake Total 200 200 400 Output Total 1150 250 75 Balance -950 -50 325 Lab Results Last 24 Hours: Laboratory Results - last 24 hr 07/21/17 07/21/17 Range/Units 05:00 05:00 WBC 21.0 H (4.5-11.0) K/uL RBC 3.58 (3.30-5.50) M/uL Hgb 10.9 L (12.0-15.0) g/dL Hct 34.8 L (36.0-48.0) % MCV 97 (80-98) fL MCH 30 (27-31) pg MCHC 31 L (32-36) % Plt Count 243 (150-400) K/uL Sodium 140 (140-148) mmol/L Potassium 3.8 (3.6-5.2) mmol/L Chloride 99 L (100-108) mmol/L Carbon Dioxide 34 H (21-32) mmol/L Anion Gap 10.8 (5.0-14.0) mmol/L BUN 21 H (7-18) mg/dL Creatinine 1.1 H (0.6-1.0) mg/dL Est Cr Clr Drug Dosing 29.32 mL/min Estimated GFR (MDRD) 47 L (>60) Glucose 209 H (74-106) mg/dL Calcium 8.3 L (8.5-10.1) mg/dL [place] Results Last 24 Hours: Microbiology 07/19/17 19:10 Gram Stain - Final Sputum - Expectorated Respiratory Culture - Preliminary NORMAL RESPIRATORY TREVOR 1 DAY Med Orders - Current: Current Medications Acetaminophen (Tylenol) 650 mg PO Q4H PRN PRN Reason: Pain (Mild 1-3)/fever Last Admin: 07/20/17 14:38 Dose: 650 mg Acetaminophen (Tylenol) 650 mg RECTAL Q4H PRN PRN Reason: Mild pain/fever Benzonatate (Tessalon Perles) 100 mg PO TID PRN PRN Reason: Cough Fluoxetine HCl (Prozac) 20 mg PO DAILY [facility] Last Admin: 07/21/17 08:13 Dose: 20 mg Meropenem 1 gm/ Sodium (Chloride) 50 mls @ 100 mls/hr IV Q12H [facility] Last Admin: 07/21/17 05:16 Dose: 100 mls/hr Doxycycline Hyclate 100 mg/ (Sodium Chloride) 100 mls @ 100 mls/hr IV Q12H [facility] Last Admin: 07/21/17 08:13 Dose: 100 mls/hr Lactobacillus Rhamnosus (Culturelle) 1 cap PO BID [facility] Last Admin: 07/21/17 08:13 Dose: 1 cap Levalbuterol HCl (Xopenex) 1.25 mg NEB QIDRT [facility] Last Admin: 07/21/17 11:14 Dose: 1.25 mg Methylprednisolone Sodium Succinate (Solu-Medrol) 62.5 mg IVPUSH Q8H [facility] Last Admin: 07/21/17 08:12 Dose: 62.5 mg Mometasone Furoate/Formoterol Fumar (Dulera 100-5 Mcg) 2 puff IH BIDRT [facility] Last Admin: 07/21/17 07:26 Dose: 2 puff Morphine Sulfate (Morphine 10 Mg/0.5 Ml Oral Syringe) 5 mg PO Q2H PRN PRN Reason: Pain/Air Hunger Last Admin: 07/20/17 16:20 Dose: 5 mg Ondansetron HCl (Zofran Odt) 4 mg PO Q6H PRN PRN Reason: Nausea able to take PO Polyethylene Glycol (Miralax) 17 gm PO DAILY PRN PRN Reason: Constipation Senna/Docusate Sodium (Senna Plus) 1 tab PO BID PRN PRN Reason: Constipation Sodium Chloride (Saline Flush) 10 ml FLUSH ASDIRECTED PRN PRN Reason: Keep Vein Open Tiotropium [place] (Spiriva Handihaler) 18 mcg INH DAILYRT [facility] Last Admin: 07/21/17 07:26 Dose: 18 mcg Discontinued Medications Doxycycline Hyclate (Vibramycin) 100 mg PO BID [facility] Last Admin: 07/20/17 08:58 Dose: 100 mg Furosemide (Lasix) 40 mg IVPUSH ONETIME ONE Stop: 07/19/17 17:16 Last Admin: 07/19/17 17:46 Dose: 40 mg Furosemide (Lasix) 40 mg IVPUSH ONETIME ONE Stop: 07/20/17 12:05 Last Admin: 07/20/17 13:17 Dose: 40 mg Magnesium Sulfate 2 gm/ Premix 50 mls @ 25 mls/hr IV Q6H [facility] Stop: 07/20/17 07:59 Last Admin: 07/20/17 05:15 Dose: 25 mls/hr Meropenem 1 gm/ Sodium (Chloride) 50 mls @ 100 mls/hr IV Q8H [facility] Prednisone (Prednisone) 20 mg PO WITHBREAKFAST [facility] Last Admin: 07/20/17 08:58 Dose: 20 mg - Exam Quality Assessment: Supplemental Oxygen General: Alert, Oriented, Cooperative, No Acute Distress Neck: Supple, No JVD Lungs: Decreased Breath Sounds (Both bases), Rhonchi (Diffuse especially in the lower lungs). No: Normal Respiratory Effort (Mild increased work of breathing) , Wheezing Cardiovascular: Regular Rhythm, Tachycardia GI/Abdominal Exam: Soft, No Distention Extremities: No Pedal Edema Skin: Warm, Dry Psy/Mental Status: Alert, Normal Affect - Problem List & Annotations (1) CHF (congestive heart failure) SNOMED Code(s): 32243485 Code(s): I50.9 - HEART FAILURE, UNSPECIFIED Status: Acute Current Visit: Yes Qualifiers: Heart failure type: unspecified Heart failure chronicity: acute Qualified Code(s): I50.9 - Heart failure, unspecified (2) Pneumonia SNOMED Code(s): 739451093 Code(s): J18.9 - PNEUMONIA, UNSPECIFIED ORGANISM Status: Acute Current Visit: No Qualifiers: Pneumonia type: due to unspecified organism Laterality: left Lung location: lower lobe of lung Qualified Code(s): J18.1 - Lobar pneumonia, unspecified organism (3) COPD (chronic obstructive pulmonary disease) SNOMED Code(s): 94732934 Code(s): J44.9 - CHRONIC OBSTRUCTIVE PULMONARY DISEASE, UNSPECIFIED Status : Chronic Current Visit: No Qualifiers: Emphysema type: unspecified (4) Palliative care encounter SNOMED Code(s): 259324131 Code(s): Z51.5 - ENCOUNTER FOR PALLIATIVE CARE Status: Acute Current Visit: Yes - Problem List Review Problem List Initiated/Reviewed/Updated: Yes - My Orders Last 24 Hours: My Active Orders 07/20/17 15:44 Morphine [Morphine 10 MG/0.5 ML Oral Syringe] 5 mg PO Q2H PRN 07/20/17 16:00 methylPREDNISolone Sod Succ [Solu-MEDROL] 62.5 mg IVPUSH Q8H 07/20/17 16:45 Insert Grigsby Catheter [Insert Urinary Catheter] [OM.PC] Q24H 07/20/17 21:00 Doxycycline [Vibramycin] 100 mg Sodium Chloride 0.9% [Normal Saline] 100 ml IV Q12H 07/21/17 07:00 Echo Comp wo Cont [US] Routine 07/21/17 13:35 RT Acapella [RESPCARE] Routine 07/22/17 05:00 BASIC METABOLIC PANEL,BMP [CHEM] Timed CBC W/O DIFF,HEMOGRAM [HEME] Timed (1) - Plan Plan:: ASSESSMENT AND PLAN - Possible congestive heart failure - clinically doing better with some diuresis. Echocardiogram is pending at this time. Volume status appears appropriate today and there is no JVD. No lower extremity edema at this time. Grigsby catheter removed because of discomfort. -Follow-up echocardiogram -Reassess volume status in the morning -Medication adjustment as indicated based on echocardiogram results Possible recurrent/persistent pneumonia - clinically doing quite a bit better today. 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 She is not sure if she wants additional aggressive workup or if she wants any more treatment at all and is considering hospice at this time. At this point she would like to continue her current level of care while she is deciding on treatment paths. -Doxycycline and meropenem -Continue IV steroids today -Follow-up sputum culture -Brittonperigobertoa COPD, oxygen dependent - baseline lung function is not great and she is normally on 2 L of oxygen. Wheezing has improved today. -transition steroids to IV -Supplement oxygen -Continue Xopenex nebulizers -Continue home medications Palliative care - the patient does not want aggressive or painful interventions or workup undertaken. She are not interested in heroic measures such as CPR or intubation. Maintenance issues - - DVT prophylaxis - JARED stockings - GI prophylaxis - not indicated - Nutrition - regular - Grigsby catheter - removed because of discomfort Disposition - I would anticipate discharge possibly to assisted living versus the alf after the hospital stay. The possibility of hospice care has been discussed and family is interested in a hospice consultation. Primary care physician - Dr. Maxwell Cheatham M.D.
[2017-07-21] MEDS: Acetaminophen 325 MG Tab PO PRN (20:49)
[2017-07-21] MEDS: Melatonin 3 MG Tab PO SCH (21:15)
[2017-07-22] MEDS: Levalbuterol HCl 1.25 MG/3 ML Neb NEB SCH ×4 (07:17→20:26)
[2017-07-22] MEDS: Formoterol/Mometasone 100-5 MCG 8.8 GM Inhaler IH SCH ×2 (07:17→20:22)
[2017-07-22] MEDS: Tiotropium Inhaler 18 MCG Inhalation Powder Cap Kit of 5 INH SCH (07:17)
[2017-07-22] MEDS: methylPREDNISolone Sodium Succinate 125 MG/2 ML SDV IVPUSH SCH (08:53)
[2017-07-22] MEDS: Lactobacillus Rhamnosus GG (Probiotic) Cap PO SCH ×2 (08:58→20:21)
[2017-07-22] MEDS: FLUoxetine 20 MG Cap PO SCH (08:58)
[2017-07-22] MEDS: Doxycycline 100 MG in Sodium Chloride 0.9% 100 ML IV SCH ×2 (08:59→20:26)
--- NOTE | 2017-07-22 10:15 | PCM.PN ---
- General Info Date of Service: 07/22/17 Functional Status: Reports: Pain Controlled, Tolerating Diet - Review of Systems General: Reports: Weakness Pulmonary: Reports: Shortness of Breath, Cough Systems Review Comment:: No acute events overnight. She is more alert and interactive again today. Still on 3 L of supplemental oxygen. Still has a harsh cough. Energy and appetite have both improved some compared to yesterday. She has not had any fevers. White blood cell count is slightly higher today. Lower extremity edema has resolved. Echocardiogram showed normal left ventricular function and moderate mitral regurgitation. - Patient Data Vitals - Most Recent: Last Vital Signs Temp 36.2 C 07/22/17 07:39 Pulse 99 07/22/17 07:39 Resp 20 07/22/17 07:39 BP 145/58 H 07/22/17 07:39 Pulse Ox 94 L 07/22/17 07:39 Weight - Most Recent: 140.8 kg I&O - Last 24 Hours: Intake & Output 07/21/17 07/22/17 07/22/17 22:59 06:59 14:59 Intake Total 100 740 300 Balance 100 740 300 Lab Results Last 24 Hours: Laboratory Results - last 24 hr 07/22/17 07/22/17 Range/Units 05:36 05:36 WBC 23.6 H (4.5-11.0) K/uL RBC 3.54 (3.30-5.50) M/uL Hgb 10.9 L (12.0-15.0) g/dL Hct 34.4 L (36.0-48.0) % MCV 97 (80-98) fL MCH 31 (27-31) pg MCHC 32 (32-36) % Plt Count 263 (150-400) K/uL Sodium 141 (140-148) mmol/L Potassium 3.9 (3.6-5.2) mmol/L Chloride 101 (100-108) mmol/L Carbon Dioxide 32 (21-32) mmol/L Anion Gap 8.1 (5.0-14.0) mmol/L BUN 31 H (7-18) mg/dL Creatinine 1.0 (0.6-1.0) mg/dL Est Cr Clr Drug Dosing 32.25 mL/min Estimated GFR (MDRD) 53 L (>60) Glucose 172 H (74-106) mg/dL Calcium 8.5 (8.5-10.1) mg/dL [facility] Results Last 24 Hours: Microbiology 07/19/17 19:10 Gram Stain - Final Sputum - Expectorated Respiratory Culture - Final NORMAL RESPIRATORY TREVOR 2 DAYS Med Orders - Current: Current Medications Acetaminophen (Tylenol) 650 mg PO Q4H PRN PRN Reason: Pain (Mild 1-3)/fever Last Admin: 07/21/17 20:49 Dose: 650 mg Acetaminophen (Tylenol) 650 mg RECTAL Q4H PRN PRN Reason: Mild pain/fever Benzonatate (Tessalon Perles) 100 mg PO TID PRN PRN Reason: Cough Fluoxetine HCl (Prozac) 20 mg PO DAILY [facility] Last Admin: 07/22/17 08:58 Dose: 20 mg Meropenem 1 gm/ Sodium (Chloride) 50 mls @ 100 mls/hr IV Q12H [facility] Last Admin: 07/22/17 04:51 Dose: 100 mls/hr Doxycycline Hyclate 100 mg/ (Sodium Chloride) 100 mls @ 100 mls/hr IV Q12H [facility] Last Admin: 07/22/17 08:59 Dose: 100 mls/hr Lactobacillus Rhamnosus (Culturelle) 1 cap PO BID [facility] Last Admin: 07/22/17 08:58 Dose: 1 cap Levalbuterol HCl (Xopenex) 1.25 mg NEB QIDRT [facility] Last Admin: 07/22/17 07:17 Dose: 1.25 mg Melatonin (Melatonin) 9 mg PO BEDTIME [facility] Last Admin: 07/21/17 21:15 Dose: 9 mg Methylprednisolone Sodium Succinate (Solu-Medrol) 62.5 mg IVPUSH Q8H [facility] Last Admin: 07/22/17 08:53 Dose: 62.5 mg Mometasone Furoate/Formoterol Fumar (Dulera 100-5 Mcg) 2 puff IH BIDRT [facility] Last Admin: 07/22/17 07:17 Dose: 2 puff Morphine Sulfate (Morphine 10 Mg/0.5 Ml Oral Syringe) 5 mg PO Q2H PRN PRN Reason: Pain/Air Hunger Last Admin: 07/20/17 16:20 Dose: 5 mg Ondansetron HCl (Zofran Odt) 4 mg PO Q6H PRN PRN Reason: Nausea able to take PO Polyethylene Glycol (Miralax) 17 gm PO DAILY PRN PRN Reason: Constipation Senna/Docusate Sodium (Senna Plus) 1 tab PO BID PRN PRN Reason: Constipation Sodium Chloride (Saline Flush) 10 ml FLUSH ASDIRECTED PRN PRN Reason: Keep Vein Open Tiotropium [place] (Spiriva Handihaler) 18 mcg INH DAILYRT [facility] Last Admin: 07/22/17 07:17 Dose: 18 mcg Discontinued Medications Doxycycline Hyclate (Vibramycin) 100 mg PO BID [facility] Last Admin: 07/20/17 08:58 Dose: 100 mg Furosemide (Lasix) 40 mg IVPUSH ONETIME ONE Stop: 07/19/17 17:16 Last Admin: 07/19/17 17:46 Dose: 40 mg Furosemide (Lasix) 40 mg IVPUSH ONETIME ONE Stop: 07/20/17 12:05 Last Admin: 07/20/17 13:17 Dose: 40 mg Magnesium Sulfate 2 gm/ Premix 50 mls @ 25 mls/hr IV Q6H [facility] Stop: 07/20/17 07:59 Last Admin: 07/20/17 05:15 Dose: 25 mls/hr Meropenem 1 gm/ Sodium (Chloride) 50 mls @ 100 mls/hr IV Q8H [facility] Prednisone (Prednisone) 20 mg PO WITHBREAKFAST [facility] Last Admin: 07/20/17 08:58 Dose: 20 mg - Exam Quality Assessment: Supplemental Oxygen General: Alert, Oriented, Cooperative, No Acute Distress Neck: Supple Lungs: Normal Respiratory Effort, Rhonchi (diffuse, more impressive in lower lungs). No: Wheezing Cardiovascular: Regular Rhythm, Tachycardia GI/Abdominal Exam: Soft, No Distention Extremities: No Pedal Edema Psy/Mental Status: Alert, Normal Affect - Problem List & Annotations (1) CHF (congestive heart failure) SNOMED Code(s): 98962255 Code(s): I50.9 - HEART FAILURE, UNSPECIFIED Status: Acute Current Visit: Yes Qualifiers: Heart failure type: unspecified Heart failure chronicity: acute Qualified Code(s): I50.9 - Heart failure, unspecified (2) Pneumonia SNOMED Code(s): 341969292 Code(s): J18.9 - PNEUMONIA, UNSPECIFIED ORGANISM Status: Acute Current Visit: No Qualifiers: Pneumonia type: due to unspecified organism Laterality: left Lung location: lower lobe of lung Qualified Code(s): J18.1 - Lobar pneumonia, unspecified organism (3) COPD (chronic obstructive pulmonary disease) SNOMED Code(s): 05771245 Code(s): J44.9 - CHRONIC OBSTRUCTIVE PULMONARY DISEASE, UNSPECIFIED Status : Chronic Current Visit: No Qualifiers: Emphysema type: unspecified (4) Palliative care encounter SNOMED Code(s): 915795525 Code(s): Z51.5 - ENCOUNTER FOR PALLIATIVE CARE Status: Acute Current Visit: Yes - Problem List Review Problem List Initiated/Reviewed/Updated: Yes - My Orders Last 24 Hours: My Active Orders 07/21/17 13:35 RT Acapella [RESPCARE] Routine 07/21/17 21:00 Melatonin 9 mg PO BEDTIME 07/22/17 14:00 Dextromethorphan/guaiFENesin [Robitussin DM] 10 ml PO TID 07/22/17 16:30 predniSONE 20 mg PO BIDAC 07/23/17 05:00 BASIC METABOLIC PANEL,BMP [CHEM] Timed CBC WITH AUTO DIFF [HEME] Timed - Plan Plan:: ASSESSMENT AND PLAN - Possible congestive heart failure - clinically doing better with some diuresis. Echocardiogram revealed normal left ventricular function and moderate mitral regurgitation. Measurements to evaluate for diastolic dysfunction are not available at this time. No evidence for systolic dysfunction but diastolic could be a possibility. Normal right ventricular function. Volume status appropriate today. -Reassess volume status daily -Medication adjustment as indicated based on echocardiogram results Recurrent/persistent pneumonia - clinically improved again today. Cultures remain negative. Still on 3 L of supplemental oxygen. Tolerating current treatment regimen. Still has a harsh cough but is moving better air. She is weak from the infection. -Doxycycline and meropenem -Transition steroids to prednisone -Follow-up sputum culture -Acapella -Physical therapy COPD, oxygen dependent - baseline lung function is not great and she is normally on 2 L of oxygen. Wheezing has improved today. -transition steroids to IV -Supplement oxygen -Continue Xopenex nebulizers -Continue home medications History of Mycobacterium avium complex infection - concern for recurrence on most recent CT scan. At this point she is too sick to have a bronchoscopy for further evaluation and definitive diagnosis. She is not sure that she wants to undergo a bronchoscopy at this time but may consider additional make some improvements. -Consider outpatient bronchoscopy here in [facility], patient does not wish to travel to [place] to have this completed Palliative care - the patient does not want aggressive or painful interventions or workup undertaken. She are not interested in heroic measures such as CPR or intubation. Maintenance issues - - DVT prophylaxis - JARED stockings - GI prophylaxis - not indicated - Nutrition - regular - Grigsby catheter - removed because of discomfort Disposition - I would anticipate discharge to the [facility] after the hospital stay. The possibility of hospice care has been discussed but the patient and family are not quite ready for this at this time. I would anticipate she will be ready for [facility] discharge on Tuesday. Primary care physician - Dr. Maxwell Cheatham M.D.
[2017-07-22] MEDS: guaiFENesin/Dextromethorphan 100-10 MG/5 ML Soln 10 ML Cup PO SCH ×2 (13:54→20:21)
[2017-07-22] MEDS: predniSONE 20 MG Tab PO SCH (16:53)
[2017-07-22] MEDS: Melatonin 3 MG Tab PO SCH (20:21)
[2017-07-23] MEDS: Tiotropium Inhaler 18 MCG Inhalation Powder Cap Kit of 5 INH SCH (07:26)
[2017-07-23] MEDS: Levalbuterol HCl 1.25 MG/3 ML Neb NEB SCH ×5 (07:26→20:12)
[2017-07-23] MEDS: Formoterol/Mometasone 100-5 MCG 8.8 GM Inhaler IH SCH ×2 (07:30→20:14)
[2017-07-23] MEDS: predniSONE 20 MG Tab PO SCH ×2 (07:43→15:46)
[2017-07-23] MEDS: FLUoxetine 20 MG Cap PO SCH (08:31)
[2017-07-23] MEDS: guaiFENesin/Dextromethorphan 100-10 MG/5 ML Soln 10 ML Cup PO SCH ×3 (08:31→20:15)
[2017-07-23] MEDS: Lactobacillus Rhamnosus GG (Probiotic) Cap PO SCH ×2 (09:08→20:13)
--- NOTE | 2017-07-23 10:32 | PCM.PN ---
- General Info Date of Service: 07/23/17 Functional Status: Reports: Pain Controlled, Tolerating Diet - Review of Systems General: Reports: Weakness Pulmonary: Reports: Shortness of Breath, Cough Systems Review Comment:: No acute events overnight. She is down to 2 L of supplemental oxygen. Still has a harsh cough but lung sounds are better today. Got a good night's sleep. Appetite and strength are slowly improving. White blood cell count down. Not having any fevers. - Patient Data Vitals - Most Recent: Last Vital Signs Temp 36.4 C 07/23/17 07:00 Pulse 94 07/23/17 07:32 Resp 22 H 07/23/17 07:00 BP 130/48 L 07/23/17 07:00 Pulse Ox 96 07/23/17 07:32 Weight - Most Recent: 64.637 kg I&O - Last 24 Hours: Intake & Output 07/22/17 07/23/17 07/23/17 22:59 06:59 14:59 Intake Total 1080 55 640 Output Total 0 250 200 Balance 1080 -195 440 Lab Results Last 24 Hours: Laboratory Results - last 24 hr 07/23/17 07/23/17 Range/Units 05:24 05:24 WBC 14.2 H (4.5-11.0) K/uL RBC 3.47 (3.30-5.50) M/uL Hgb 10.8 L (12.0-15.0) g/dL Hct 33.6 L (36.0-48.0) % MCV 97 (80-98) fL MCH 31 (27-31) pg MCHC 32 (32-36) % Plt Count 220 (150-400) K/uL Neut % (Auto) 90 H (36-66) % Lymph % (Auto) 3 L (24-44) % Sharkey % (Auto) 5 (2-6) % Eos % (Auto) 3 (2-4) % Baso % (Auto) 0 (0-1) % Sodium 141 (140-148) mmol/L Potassium 4.2 (3.6-5.2) mmol/L Chloride 103 (100-108) mmol/L Carbon Dioxide 33 H (21-32) mmol/L Anion Gap 9.2 (5.0-14.0) mmol/L BUN 32 H (7-18) mg/dL Creatinine 0.9 (0.6-1.0) mg/dL Est Cr Clr Drug Dosing 35.83 mL/min Estimated GFR (MDRD) 60 (>60) Glucose 152 H (74-106) mg/dL Calcium 8.0 L (8.5-10.1) mg/dL [place] Results Last 24 Hours: Microbiology 07/19/17 19:10 Gram Stain - Final Sputum - Expectorated Respiratory Culture - Final NORMAL RESPIRATORY TREVOR 2 DAYS Med Orders - Current: Current Medications Acetaminophen (Tylenol) 650 mg PO Q4H PRN PRN Reason: Pain (Mild 1-3)/fever Last Admin: 07/21/17 20:49 Dose: 650 mg Acetaminophen (Tylenol) 650 mg RECTAL Q4H PRN PRN Reason: Mild pain/fever Benzonatate (Tessalon Perles) 100 mg PO TID PRN PRN Reason: Cough Last Admin: 07/23/17 05:32 Dose: 100 mg Fluoxetine HCl (Prozac) 20 mg PO DAILY [facility] Last Admin: 07/23/17 08:31 Dose: 20 mg Guaifenesin/Dextromethorphan (Robitussin Dm) 10 ml PO TID [facility] Last Admin: 07/23/17 08:31 Dose: 10 ml Meropenem 1 gm/ Sodium (Chloride) 50 mls @ 100 mls/hr IV Q12H [facility] Last Admin: 07/23/17 05:25 Dose: 100 mls/hr Doxycycline Hyclate 100 mg/ (Sodium Chloride) 100 mls @ 100 mls/hr IV Q12H [facility] Last Admin: 07/22/17 20:26 Dose: 100 mls/hr Lactobacillus Rhamnosus (Culturelle) 1 cap PO BID [facility] Last Admin: 07/23/17 09:08 Dose: 1 cap Levalbuterol HCl (Xopenex) 1.25 mg NEB QIDRT [facility] Last Admin: 07/23/17 07:26 Dose: 1.25 mg Melatonin (Melatonin) 9 mg PO BEDTIME [facility] Last Admin: 07/22/17 20:21 Dose: 9 mg Mometasone Furoate/Formoterol Fumar (Dulera 100-5 Mcg) 2 puff IH BIDRT [facility] Last Admin: 07/23/17 07:30 Dose: 2 puff Morphine Sulfate (Morphine 10 Mg/0.5 Ml Oral Syringe) 5 mg PO Q2H PRN PRN Reason: Pain/Air Hunger Last Admin: 07/20/17 16:20 Dose: 5 mg Ondansetron HCl (Zofran Odt) 4 mg PO Q6H PRN PRN Reason: Nausea able to take PO Polyethylene Glycol (Miralax) 17 gm PO DAILY PRN PRN Reason: Constipation Prednisone (Prednisone) 20 mg PO BIDAC [facility] Last Admin: 07/23/17 07:43 Dose: 20 mg Senna/Docusate Sodium (Senna Plus) 1 tab PO BID PRN PRN Reason: Constipation Sodium Chloride (Saline Flush) 10 ml FLUSH ASDIRECTED PRN PRN Reason: Keep Vein Open Tiotropium Petroleum (Spiriva Handihaler) 18 mcg INH DAILYRT [facility] Last Admin: 07/23/17 07:26 Dose: 18 mcg Discontinued Medications Doxycycline Hyclate (Vibramycin) 100 mg PO BID [facility] Last Admin: 07/20/17 08:58 Dose: 100 mg Furosemide (Lasix) 40 mg IVPUSH ONETIME ONE Stop: 07/19/17 17:16 Last Admin: 07/19/17 17:46 Dose: 40 mg Furosemide (Lasix) 40 mg IVPUSH ONETIME ONE Stop: 07/20/17 12:05 Last Admin: 07/20/17 13:17 Dose: 40 mg Magnesium Sulfate 2 gm/ Premix 50 mls @ 25 mls/hr IV Q6H [facility] Stop: 07/20/17 07:59 Last Admin: 07/20/17 05:15 Dose: 25 mls/hr Meropenem 1 gm/ Sodium (Chloride) 50 mls @ 100 mls/hr IV Q8H [facility] Methylprednisolone Sodium Succinate (Solu-Medrol) 62.5 mg IVPUSH Q8H [facility] Last Admin: 07/22/17 08:53 Dose: 62.5 mg Prednisone (Prednisone) 20 mg PO WITHBREAKFAST [facility] Last Admin: 07/20/17 08:58 Dose: 20 mg - Exam Quality Assessment: Supplemental Oxygen General: Alert, Oriented, Cooperative, No Acute Distress Neck: Supple Lungs: Clear to Auscultation, Normal Respiratory Effort. No: Wheezing Cardiovascular: Regular Rate, Regular Rhythm GI/Abdominal Exam: Soft, No Distention Extremities: No Pedal Edema Skin: Warm, Dry Psy/Mental Status: Alert, Normal Affect - Problem List & Annotations (1) CHF (congestive heart failure) SNOMED Code(s): 14560824 Code(s): I50.9 - HEART FAILURE, UNSPECIFIED Status: Acute Current Visit: Yes Qualifiers: Heart failure type: unspecified Heart failure chronicity: acute Qualified Code(s): I50.9 - Heart failure, unspecified (2) Pneumonia SNOMED Code(s): 127055403 Code(s): J18.9 - PNEUMONIA, UNSPECIFIED ORGANISM Status: Acute Current Visit: No Qualifiers: Pneumonia type: due to unspecified organism Laterality: left Lung location: lower lobe of lung Qualified Code(s): J18.1 - Lobar pneumonia, unspecified organism (3) COPD (chronic obstructive pulmonary disease) SNOMED Code(s): 95563716 Code(s): J44.9 - CHRONIC OBSTRUCTIVE PULMONARY DISEASE, UNSPECIFIED Status : Chronic Current Visit: No Qualifiers: Emphysema type: unspecified (4) Palliative care encounter SNOMED Code(s): 606662769 Code(s): Z51.5 - ENCOUNTER FOR PALLIATIVE CARE Status: Acute Current Visit: Yes - Problem List Review Problem List Initiated/Reviewed/Updated: Yes - My Orders Last 24 Hours: My Active Orders 07/22/17 14:00 Dextromethorphan/guaiFENesin [Robitussin DM] 10 ml PO TID 07/22/17 16:30 predniSONE 20 mg PO BIDAC 07/23/17 10:45 Doxycycline [Vibramycin] 100 mg PO BID 07/24/17 05:00 BASIC METABOLIC PANEL,BMP [CHEM] Timed CBC W/O DIFF,HEMOGRAM [HEME] Timed (1) - Plan Plan:: ASSESSMENT AND PLAN - Possible diastolic congestive heart failure - clinically doing better with some diuresis. Echocardiogram revealed normal left ventricular function and moderate mitral regurgitation. Volume status appropriate today. -Reassess volume status daily -Medication adjustment as indicated based on echocardiogram results Recurrent/persistent pneumonia - ongoing clinical improvement, now down to 2 L supplemental oxygen. Lung exam is improving daily. IV came out early this morning. -Doxycycline -Continue prednisone -Follow-up sputum culture -Acapella -Physical therapy COPD, oxygen dependent - baseline lung function is not great and she is normally on 2 L of oxygen. Wheezing has now resolved. -Continue prednisone -Supplement oxygen -Continue Xopenex nebulizers -Continue home medications History of Mycobacterium avium complex infection - concern for recurrence on most recent CT scan. At this point she is too sick to have a bronchoscopy for further evaluation and definitive diagnosis. She is not sure that she wants to undergo a bronchoscopy at this time but may consider additional make some improvements. -[facility] patient does not wish to travel to [place] to have this completed Palliative care - the patient does not want aggressive or painful interventions or workup undertaken. She are not interested in heroic measures such as CPR or intubation. Maintenance issues - - DVT prophylaxis - JARED stockings - GI prophylaxis - not indicated - Nutrition - regular Disposition - [facility]. The possibility of hospice care has been discussed but the patient and family are not quite ready for this at this time. I would anticipate she will [facility] on Tuesday. Primary care physician - Dr. Maxwell Cheatham M.D.
[2017-07-23] MEDS: Doxycycline 100 MG in Sodium Chloride 0.9% 100 ML IV SCH (10:40)
[2017-07-23] MEDS: Doxycycline 100 MG Cap PO SCH ×2 (11:04→20:16)
[2017-07-23] MEDS: Melatonin 3 MG Tab PO SCH (20:15)
[2017-07-24] MEDS: Acetaminophen 325 MG Tab PO PRN (02:21)
[2017-07-24] MEDS: Levalbuterol HCl 1.25 MG/3 ML Neb NEB SCH ×4 (07:15→21:50)
[2017-07-24] MEDS: predniSONE 20 MG Tab PO SCH ×2 (07:48→16:47)
[2017-07-24] MEDS: Tiotropium Inhaler 18 MCG Inhalation Powder Cap Kit of 5 INH SCH (07:51)
[2017-07-24] MEDS: Formoterol/Mometasone 100-5 MCG 8.8 GM Inhaler IH SCH ×2 (07:51→21:52)
[2017-07-24] MEDS: guaiFENesin/Dextromethorphan 100-10 MG/5 ML Soln 10 ML Cup PO SCH ×3 (08:43→21:52)
[2017-07-24] MEDS: Doxycycline 100 MG Cap PO SCH ×2 (08:43→21:52)
[2017-07-24] MEDS: Lactobacillus Rhamnosus GG (Probiotic) Cap PO SCH ×2 (08:43→21:52)
[2017-07-24] MEDS: FLUoxetine 20 MG Cap PO SCH (08:43)
--- NOTE | 2017-07-24 10:26 | PCM.PN ---
- General Info Date of Service: 07/24/17 Functional Status: Reports: Pain Controlled, Tolerating Diet - Review of Systems General: Reports: Weakness Pulmonary: Reports: Shortness of Breath, Cough Systems Review Comment:: No acute events overnight. Patient doesn't feel quite as good today and feels a little more short of breath. Cough is a little bit more loose today than it was yesterday but she is not bringing anything up. No fevers overnight. White cell count continues to trend down. Her weight is up a few pounds over the past couple of days. - Patient Data Vitals - Most Recent: Last Vital Signs Temp 36.7 C 07/24/17 08:36 Pulse 90 07/24/17 08:36 Resp 28 H 07/24/17 08:36 BP 159/98 H 07/24/17 08:36 Pulse Ox 91 L 07/24/17 08:36 Weight - Most Recent: 66.075 kg I&O - Last 24 Hours: Intake & Output 07/23/17 07/24/17 07/24/17 22:59 06:59 14:59 Intake Total 480 140 200 Output Total 300 250 200 Balance 180 -110 0 Lab Results Last 24 Hours: Laboratory Results - last 24 hr 07/24/17 07/24/17 Range/Units 05:20 05:20 WBC 12.9 H (4.5-11.0) K/uL RBC 3.61 (3.30-5.50) M/uL Hgb 11.1 L (12.0-15.0) g/dL Hct 35.4 L (36.0-48.0) % MCV 98 (80-98) fL MCH 31 (27-31) pg MCHC 31 L (32-36) % Plt Count 270 (150-400) K/uL Sodium 141 (140-148) mmol/L Potassium 4.3 (3.6-5.2) mmol/L Chloride 102 (100-108) mmol/L Carbon Dioxide 35 H (21-32) mmol/L Anion Gap 8.3 (5.0-14.0) mmol/L BUN 30 H (7-18) mg/dL Creatinine 0.9 (0.6-1.0) mg/dL Est Cr Clr Drug Dosing 35.83 mL/min Estimated GFR (MDRD) 60 (>60) Glucose 117 H (74-106) mg/dL Calcium 8.4 L (8.5-10.1) mg/dL Med Orders - Current: Current Medications Acetaminophen (Tylenol) 650 mg PO Q4H PRN PRN Reason: Pain (Mild 1-3)/fever Last Admin: 07/24/17 02:21 Dose: 650 mg Acetaminophen (Tylenol) 650 mg RECTAL Q4H PRN PRN Reason: Mild pain/fever Benzonatate (Tessalon Perles) 100 mg PO TID PRN PRN Reason: Cough Last Admin: 07/23/17 05:32 Dose: 100 mg Doxycycline Hyclate (Vibramycin) 100 mg PO BID [facility] Last Admin: 07/24/17 08:43 Dose: 100 mg Fluoxetine HCl (Prozac) 20 mg PO DAILY [facility] Last Admin: 07/24/17 08:43 Dose: 20 mg Furosemide (Lasix) 40 mg PO ONETIME ONE Stop: 07/24/17 10:20 Furosemide (Lasix) 40 mg PO DAILY [facility] Guaifenesin/Dextromethorphan (Robitussin Dm) 10 ml PO TID [facility] Last Admin: 07/24/17 08:43 Dose: 10 ml Lactobacillus Rhamnosus (Culturelle) 1 cap PO BID [facility] Last Admin: 07/24/17 08:43 Dose: 1 cap Levalbuterol HCl (Xopenex) 1.25 mg NEB QIDRT [facility] Last Admin: 07/24/17 07:15 Dose: 1.25 mg Melatonin (Melatonin) 9 mg PO BEDTIME [facility] Last Admin: 07/23/17 20:15 Dose: 9 mg Mometasone Furoate/Formoterol Fumar (Dulera 100-5 Mcg) 2 puff IH BIDRT [facility] Last Admin: 07/24/17 07:51 Dose: 2 puff Morphine Sulfate (Morphine 10 Mg/0.5 Ml Oral Syringe) 5 mg PO Q2H PRN PRN Reason: Pain/Air Hunger Last Admin: 07/20/17 16:20 Dose: 5 mg Ondansetron HCl (Zofran Odt) 4 mg PO Q6H PRN PRN Reason: Nausea able to take PO Polyethylene Glycol (Miralax) 17 gm PO DAILY PRN PRN Reason: Constipation Prednisone (Prednisone) 20 mg PO BIDAC [facility] Stop: 07/24/17 19:00 Last Admin: 07/24/17 07:48 Dose: 20 mg Senna/Docusate Sodium (Senna Plus) 1 tab PO BID PRN PRN Reason: Constipation Sodium Chloride (Saline Flush) 10 ml FLUSH ASDIRECTED PRN PRN Reason: Keep Vein Open Tiotropium Goldonna (Spiriva Handihaler) 18 mcg INH DAILYRT [facility] Last Admin: 07/24/17 07:51 Dose: 18 mcg Discontinued Medications Doxycycline Hyclate (Vibramycin) 100 mg PO BID [facility] Last Admin: 07/20/17 08:58 Dose: 100 mg Furosemide (Lasix) 40 mg IVPUSH ONETIME ONE Stop: 07/19/17 17:16 Last Admin: 07/19/17 17:46 Dose: 40 mg Furosemide (Lasix) 40 mg IVPUSH ONETIME ONE Stop: 07/20/17 12:05 Last Admin: 07/20/17 13:17 Dose: 40 mg Magnesium Sulfate 2 gm/ Premix 50 mls @ 25 mls/hr IV Q6H [facility] Stop: 07/20/17 07:59 Last Admin: 07/20/17 05:15 Dose: 25 mls/hr Meropenem 1 gm/ Sodium (Chloride) 50 mls @ 100 mls/hr IV Q8H [facility] Meropenem 1 gm/ Sodium (Chloride) 50 mls @ 100 mls/hr IV Q12H [facility] Last Admin: 07/23/17 05:25 Dose: 100 mls/hr Doxycycline Hyclate 100 mg/ (Sodium Chloride) 100 mls @ 100 mls/hr IV Q12H [facility] Last Admin: 07/23/17 10:40 Dose: Not Given Methylprednisolone Sodium Succinate (Solu-Medrol) 62.5 mg IVPUSH Q8H [facility] Last Admin: 07/22/17 08:53 Dose: 62.5 mg Prednisone (Prednisone) 20 mg PO WITHBREAKFAST [facility] Last Admin: 07/20/17 08:58 Dose: 20 mg - Exam Quality Assessment: Supplemental Oxygen General: Alert, Oriented, Cooperative, Mild Distress Neck: Supple Lungs: Normal Respiratory Effort, Decreased Breath Sounds (both bases), Crackles (both bases) Cardiovascular: Regular Rhythm, Tachycardia GI/Abdominal Exam: Soft, No Distention Extremities: No Pedal Edema Skin: Warm, Dry Psy/Mental Status: Alert, Normal Affect - Problem List & Annotations (1) CHF (congestive heart failure) SNOMED Code(s): 00333824 Code(s): I50.9 - HEART FAILURE, UNSPECIFIED Status: Acute Current Visit: Yes Qualifiers: Heart failure type: unspecified Heart failure chronicity: acute Qualified Code(s): I50.9 - Heart failure, unspecified (2) Pneumonia SNOMED Code(s): 845443470 Code(s): J18.9 - PNEUMONIA, UNSPECIFIED ORGANISM Status: Acute Current Visit: No Qualifiers: Pneumonia type: due to unspecified organism Laterality: left Lung location: lower lobe of lung Qualified Code(s): J18.1 - Lobar pneumonia, unspecified organism (3) COPD (chronic obstructive pulmonary disease) SNOMED Code(s): 10545596 Code(s): J44.9 - CHRONIC OBSTRUCTIVE PULMONARY DISEASE, UNSPECIFIED Status : Chronic Current Visit: No Qualifiers: Emphysema type: unspecified (4) Palliative care encounter SNOMED Code(s): 060305722 Code(s): Z51.5 - ENCOUNTER FOR PALLIATIVE CARE Status: Acute Current Visit: Yes - Problem List Review Problem List Initiated/Reviewed/Updated: Yes - My Orders Last 24 Hours: My Active Orders 07/23/17 10:45 Doxycycline [Vibramycin] 100 mg PO BID 07/24/17 10:19 Furosemide [Lasix] 40 mg PO ONETIME ONE 07/25/17 05:00 BASIC METABOLIC PANEL,BMP [CHEM] Timed CBC W/O DIFF,HEMOGRAM [HEME] Timed (1) 07/25/17 08:00 predniSONE 30 mg PO WITHBREAKFAST 07/25/17 09:00 Furosemide [Lasix] 40 mg PO DAILY 07/28/17 08:00 predniSONE 20 mg PO WITHBREAKFAST 07/31/17 08:00 predniSONE 10 mg PO WITHBREAKFAST - Plan Plan:: ASSESSMENT AND PLAN - Possible diastolic congestive heart failure - clinically doing better with some diuresis. Echocardiogram revealed normal left ventricular function and moderate mitral regurgitation. Volume status appears slightly on the generous side today. -40 mg of furosemide this afternoon and again in the morning -Reassess volume status daily Recurrent/persistent pneumonia - ongoing clinical improvement, now down to 2 L supplemental oxygen. Lung exam is improving daily. Mild volume overload as discussed above but otherwise doing well. Cultures negative to date. -Doxycycline -Continue prednisone, start taper -Acapella -Physical therapy COPD, oxygen dependent - baseline lung function is not great and she is normally on 2 L of oxygen. Wheezing has now resolved. -Continue prednisone, start taper -Supplement oxygen -Continue Xopenex nebulizers -Continue home medications History of Mycobacterium avium complex infection - concern for recurrence on most recent CT scan. At this point she is too sick to have a bronchoscopy for further evaluation and definitive diagnosis. She is not sure that she wants to undergo a bronchoscopy at this time but may consider additional make some improvements. -Consider outpatient bronchoscopy here in [facility], patient does not wish to travel to [place] to have this completed Palliative care - the patient does not want aggressive or painful interventions or workup undertaken. She are not interested in heroic measures such as CPR or intubation. Maintenance issues - - DVT prophylaxis - JARED stockings - GI prophylaxis - not indicated - Nutrition - regular Disposition - I would [facility] to [facility] after the hospital stay. The possibility of hospice care has been discussed but the patient and family are not quite ready for this at this time. I would anticipate she will be ready for [facility] discharge tomorrow. Primary care physician - Dr. Maxwell Cheatham M.D.
[2017-07-24] MEDS ORDERED: Furosemide 40 MG Tab PO ONE (11:00)
--- NOTE | 2017-07-24 14:53 | PCM.DCSUM1 ---
Discharge Summary - Hospital Course Brief History: 87-year-old female with history of oxygen dependent COPD, previous Mycobacterium avium complex infection and recent pneumonia who presented with fever, lethargy and worsening hypoxia. She was admitted for management of recurrent pneumonia. - Discharge Data Discharge Date: 07/25/17 Discharge Disposition: DC/Tfer to SNF 03 Condition: Good - Discharge Diagnosis/Problem(s) (1) Pneumonia SNOMED Code(s): 219318399 ICD Code: J18.9 - PNEUMONIA, UNSPECIFIED ORGANISM Status: Acute Current Visit: No Qualifiers: Pneumonia type: due to unspecified organism Laterality: left Lung location: lower lobe of lung Qualified Code(s): J18.1 - Lobar pneumonia, unspecified organism (2) CHF (congestive heart failure) SNOMED Code(s): 25595362 ICD Code: I50.9 - HEART FAILURE, UNSPECIFIED Status: Acute Current Visit : Yes Qualifiers: Heart failure type: diastolic Heart failure chronicity: acute Qualified Code(s): I50.31 - Acute diastolic (congestive) heart failure (3) COPD (chronic obstructive pulmonary disease) SNOMED Code(s): 14122869 ICD Code: J44.9 - CHRONIC OBSTRUCTIVE PULMONARY DISEASE, UNSPECIFIED Status : Chronic Current Visit: No Qualifiers: Emphysema type: unspecified (4) Palliative care encounter SNOMED Code(s): 096262216 ICD Code: Z51.5 - ENCOUNTER FOR PALLIATIVE CARE Status: Acute Current Visit: Yes - Patient Summary/Data Consults: Consultations 07/20/17 07:00 PT Evaluation and Treatment [CONS] Routine Please Evaluate and Treat. PT Reason for Consult: Strengthening This query below is only for informational purposes and is not editable. Hospital Course: Felicita presented as a direct admission from the walk-in clinic. She had initially presented there with lethargy, fever, worsening shortness of breath as well as lower extremity edema. Workup in the clinic revealed acute on chronic hypoxic respiratory failure as well as fever and lethargy. Chest x-ray showed persistent left lung infiltrate. Given the lethargy and fever she was admitted to the hospital. She was started on extended spectrum antibiotics given recent antibiotic therapy. Antibiotic choices included doxycycline and meropenem. She was also started on IV steroids initially. There was some mild evidence for volume overload and she did receive IV diuresis at the time of admission as well as the morning after. Over the first 24 hours she did not show significant improvement clinically. She remained on an increased amount of supplemental oxygen from baseline. White blood cell count increased the morning after admission and was up to 20,000 from around 14,000 at the time of admission. She remained very lethargic and had intermittent fevers. We had several discussions about the path of care and elected to continue current level of care but not escalate cares any further. Over the next 24 hours things did not change much. White blood cell count increased slightly and she remained very lethargic. Fortunately her temperature curve had improved slightly and oxygenation remained stable. Volume status seemed more appropriate and diuresis was held at that time. During the evening of the second day of hospitalization she perked up and had increased energy and was able to get up to the chair. Respiratory status did show a slight improvement. Temperature curve had been improving but white blood cell count trended up slightly compared to the days before. Over the next 24 hours she had additional improvements including decreasing supplemental oxygen requirement. She has been afebrile over this period and white blood cell count did bump up slightly. With her improvements we elected to transition from IV down to oral steroids. We continued on the extended spectrum antibiotics. Clinically she had ongoing improvement in volume status remained stable. Kidney function has been stable throughout the course of the hospital stay. Fever curve continues to improve. 2 days before discharge her IV came out and we transitioned to just oral doxycycline. We continued the prednisone. She had ongoing improvement throughout the day. The day before discharge she did have a several pound weight gain and slight decline in her respiratory status. This did respond very nicely to a single dose of oral furosemide. She received a 40 mg dose of furosemide in the morning of discharge as well. I believe she is safe for discharge to the [facility] at this time. She would benefit from subacute rehabilitation to improve her strength and endurance. She will need 6 additional doses of antibiotics after hospital discharge. Because of the duration of steroid therapy I recommend a taper over the next 8 days following discharge and this is outlined in the medication section. She has Robitussin and Tessalon for symptomatically management of her cough. She will be discharged to the [facility] for physical and occupational therapy with the goal that she can hopefully return to assisted living in the near future. Recently there has been concern for recurrence of her Mycobacterium avium complex infection. The plan was to have her see a sewing machine operator zipper in [place] but I don't believe she is able to make the trip at this point. If she does make some improvements in strength and respiratory status we could consider performing a bronchoscopy here at the hospital. She does understand and the family has also been part of the discussion that this is not quite as good as the bronchoscopy performed by sewing machine operator zipper but would save the travel and still has a chance to potentially diagnose the Mycobacterium infection if it is still present. She will discuss this with her primary care physician at follow-up in 1-2 weeks. - Patient Instructions Diet: Regular Diet as Tolerated Activity: As Tolerated (up with assistance) Showering/Bathing: May Shower Notify Provider of: Fever, Increased Pain, Nausea and/or Vomiting Other/Special Instructions: 1. You were in the hospital for management of recurrent and severe pneumonia. We did not determine a causative bacteria but you have been getting better with antibiotic therapy. I recommend 6 additional doses of doxycycline to be taken after hospital discharge to complete 8 days of treatment. You were also on prednisone to help with inflammation related to the infection. Because of the duration of steroid therapy I recommend a taper over the next 8 days after hospital discharge. Directions are listed below: - Starting 07/26 - prednisone 30 mg daily with breakfast 2 days. -Starting 07/28 - prednisone 20 mg daily with breakfast 3 days. -Starting 07/31 - prednisone 10 mg daily with breakfast for 3 days then stop. 2. Continue your home oxygen at 2 L/m as previously prescribed. 3. CODE STATUS is full treatment without intubation and without ACLS. 4. I have placed a referral to physical and occupational therapy to provide strengthening while you are at the [facility] for subacute rehabilitation. 5. Follow-up with Dr. Arreola in 1-2 weeks. You should review the hospital stay and discuss the risk versus benefit of having a bronchoscopy completed here in [place] is worthwhile to avoid the difficult travel to [place]. 6. Please seek medical attention if you develop fever greater than 101, have severe shortness of breath, chest pain or persistent vomiting. - Discharge Plan Prescriptions/Med Rec: Acetaminophen [Tylenol] 650 mg PO Q4H PRN #100 tablet PRN Reason: Pain (Mild 1-3)/fever Benzonatate [Tessalon Perle] 100 mg PO TID PRN #30 capsule PRN Reason: Cough Doxycycline Calcium [IMW: Doxycycline] 100 mg PO BID #6 capsule guaiFENesin/Dextromethorphan [Guaifenesin Dm Syrup] 10 ml PO Q6H PRN #240 syrup PRN Reason: Cough predniSONE 10 mg PO ASDIRECTED #15 tablet Home Medications: Home Meds Fluticasone/Salmeterol [Advair 100-50] 1 puff INH BID 10/04/14 [History] Furosemide [Lasix] 20 mg PO DAILY 10/04/14 [History] Tiotropium [Spiriva HandiHaler] 18 mcg INH DAILY 10/04/14 [History] L.acidoph,Paracasei, B.lactis [Probiotic] 1 each PO BID 08/27/16 [History] *B12 1,000 mcg PO DAILY 07/08/17 [History] Levalbuterol HCl [Xopenex] 1.25 mg NEB QIDRT #120 neb 07/15/17 [Rx] FLUoxetine HCl [Prozac] 20 mg PO DAILY 07/19/17 [History] Acetaminophen [Tylenol] 650 mg PO Q4H PRN #100 tablet 07/24/17 [Rx] Benzonatate [Tessalon Perle] 100 mg PO TID PRN #30 capsule 07/24/17 [Rx] Doxycycline Calcium [IMW: Doxycycline] 100 mg PO BID #6 capsule 07/24/17 [Rx] guaiFENesin/Dextromethorphan [Guaifenesin Dm Syrup] 10 ml PO Q6H PRN #240 syrup 07/24/17 [Rx] predniSONE 10 mg PO ASDIRECTED #15 tablet 07/24/17 [Rx] Patient Handouts: Heart Failure, [id number], Doxycycline tablets or capsules , Community-Acquired Pneumonia, Adult, [id number] Referrals: Axel Arreola MD [Primary Care Provider] - (1-2 weeks - f/u hospital stay for recurrent pneumonia, consider bronch at [facility] since she can't make the trip to [place] ) - Discharge Summary/Plan Comment DC Time >30 min.: Yes (45 - new [facility] discharge) - Patient Data Vitals - Most Recent: Last Vital Signs Temp 36.8 C 07/24/17 11:18 Pulse 103 H 07/24/17 11:18 Resp 26 H 07/24/17 11:18 BP 153/58 H 07/24/17 11:18 Pulse Ox 99 07/24/17 11:18 Weight - Most Recent: 66.075 kg I&O - Last 24 hours: Intake & Output 07/23/17 07/24/17 07/24/17 22:59 06:59 14:59 Intake Total 480 140 600 Output Total 300 250 300 Balance 180 -110 300 Lab Results - Last 24 hrs: Laboratory Results - last 24 hr 07/24/17 07/24/17 Range/Units 05:20 05:20 WBC 12.9 H (4.5-11.0) K/uL RBC 3.61 (3.30-5.50) M/uL Hgb 11.1 L (12.0-15.0) g/dL Hct 35.4 L (36.0-48.0) % MCV 98 (80-98) fL MCH 31 (27-31) pg MCHC 31 L (32-36) % Plt Count 270 (150-400) K/uL Sodium 141 (140-148) mmol/L Potassium 4.3 (3.6-5.2) mmol/L Chloride 102 (100-108) mmol/L Carbon Dioxide 35 H (21-32) mmol/L Anion Gap 8.3 (5.0-14.0) mmol/L BUN 30 H (7-18) mg/dL Creatinine 0.9 (0.6-1.0) mg/dL Est Cr Clr Drug Dosing 35.83 mL/min Estimated GFR (MDRD) 60 (>60) Glucose 117 H (74-106) mg/dL Calcium 8.4 L (8.5-10.1) mg/dL Med Orders - Current: Current Medications Acetaminophen (Tylenol) 650 mg PO Q4H PRN PRN Reason: Pain (Mild 1-3)/fever Last Admin: 07/24/17 02:21 Dose: 650 mg Acetaminophen (Tylenol) 650 mg RECTAL Q4H PRN PRN Reason: Mild pain/fever Benzonatate (Tessalon Perles) 100 mg PO TID PRN PRN Reason: Cough Last Admin: 07/23/17 05:32 Dose: 100 mg Doxycycline Hyclate (Vibramycin) 100 mg PO BID KIARA Last Admin: 07/24/17 08:43 Dose: 100 mg Fluoxetine HCl (Prozac) 20 mg PO DAILY [facility] Last Admin: 07/24/17 08:43 Dose: 20 mg Furosemide (Lasix) 40 mg PO DAILY [facility] Guaifenesin/Dextromethorphan (Robitussin Dm) 10 ml PO TID [facility] Last Admin: 07/24/17 13:57 Dose: 10 ml Lactobacillus Rhamnosus (Culturelle) 1 cap PO BID [facility] Last Admin: 07/24/17 08:43 Dose: 1 cap Levalbuterol HCl (Xopenex) 1.25 mg NEB QIDRT [facility] Last Admin: 07/24/17 11:06 Dose: 1.25 mg Melatonin (Melatonin) 9 mg PO BEDTIME [facility] Last Admin: 07/23/17 20:15 Dose: 9 mg Mometasone Furoate/Formoterol Fumar (Dulera 100-5 Mcg) 2 puff IH BIDRT [facility] Last Admin: 07/24/17 07:51 Dose: 2 puff Morphine Sulfate (Morphine 10 Mg/0.5 Ml Oral Syringe) 5 mg PO Q2H PRN PRN Reason: Pain/Air Hunger Last Admin: 07/20/17 16:20 Dose: 5 mg Ondansetron HCl (Zofran Odt) 4 mg PO Q6H PRN PRN Reason: Nausea able to take PO Polyethylene Glycol (Miralax) 17 gm PO DAILY PRN PRN Reason: Constipation Prednisone (Prednisone) 20 mg PO BIDAC [facility] Stop: 07/24/17 19:00 Last Admin: 07/24/17 07:48 Dose: 20 mg Prednisone (Prednisone) 20 mg PO WITHBREAKFAST [facility] Stop: 07/30/17 08:01 Prednisone (Prednisone) 10 mg PO WITHBREAKFAST [facility] Stop: 08/02/17 08:01 Prednisone (Prednisone) 10 mg PO DAILY [facility] Stop: 07/27/17 09:01 Senna/Docusate Sodium (Senna Plus) 1 tab PO BID PRN PRN Reason: Constipation Sodium Chloride (Saline Flush) 10 ml FLUSH ASDIRECTED PRN PRN Reason: Keep Vein Open Tiotropium Sharon (Spiriva Handihaler) 18 mcg INH DAILYRT [facility] Last Admin: 07/24/17 07:51 Dose: 18 mcg Discontinued Medications Doxycycline Hyclate (Vibramycin) 100 mg PO BID [facility] Last Admin: 07/20/17 08:58 Dose: 100 mg Furosemide (Lasix) 40 mg IVPUSH ONETIME ONE Stop: 07/19/17 17:16 Last Admin: 07/19/17 17:46 Dose: 40 mg Furosemide (Lasix) 40 mg IVPUSH ONETIME ONE Stop: 07/20/17 12:05 Last Admin: 07/20/17 13:17 Dose: 40 mg Furosemide (Lasix) 40 mg PO ONETIME ONE Stop: 07/24/17 11:01 Last Admin: 07/24/17 11:22 Dose: 40 mg Magnesium Sulfate 2 gm/ Premix 50 mls @ 25 mls/hr IV Q6H [facility] Stop: 07/20/17 07:59 Last Admin: 07/20/17 05:15 Dose: 25 mls/hr Meropenem 1 gm/ Sodium (Chloride) 50 mls @ 100 mls/hr IV Q8H [facility] Meropenem 1 gm/ Sodium (Chloride) 50 mls @ 100 mls/hr IV Q12H [facility] Last Admin: 07/23/17 05:25 Dose: 100 mls/hr Doxycycline Hyclate 100 mg/ (Sodium Chloride) 100 mls @ 100 mls/hr IV Q12H [facility] Last Admin: 07/23/17 10:40 Dose: Not Given Methylprednisolone Sodium Succinate (Solu-Medrol) 62.5 mg IVPUSH Q8H [facility] Last Admin: 07/22/17 08:53 Dose: 62.5 mg Prednisone (Prednisone) 20 mg PO WITHBREAKFAST [facility] Last Admin: 07/20/17 08:58 Dose: 20 mg Prednisone (Prednisone) 30 mg PO WITHBREAKFAST [facility] Stop: 07/27/17 08:01 - Exam Quality Assessment: Reports: Supplemental Oxygen General: Reports: Alert, Oriented, Cooperative, No Acute Distress Neck: Reports: Supple Lungs: Reports: Normal Respiratory Effort, Crackles (rare both bases) Cardiovascular: Reports: Regular Rate, Regular Rhythm GI/Abdominal Exam: Soft, No Distention Extremities: No Pedal Edema *Q Meaningful Use (DIS) - VTE *Q VTE Criteria *Q: - Stroke *Q Stroke Criteria *Q: - AMI *Q AMI Criteria *Q:
[2017-07-24] MEDS: Melatonin 3 MG Tab PO SCH (21:52)
[2017-07-24] MEDS: Morphine 10 MG/0.5 ML Oral Syringe PO PRN (21:57)
[2017-07-24] MEDS ORDERED: Furosemide 40 MG/4 ML VIAL IVPUSH ONE (22:33)
[2017-07-24] MEDS ORDERED: Morphine 2 MG/ML Syringe IVPUSH ONE (22:35)
[2017-07-24] MEDS ORDERED: Sodium Chloride 0.9% 10 ML Syringe FLUSH PRN (22:37)
--- NOTE | 2017-07-24 22:55 | PCM.SN ---
- Free Text/Narrative Note: time: 20:[address] [facility] to come and evaluate Mrs. Quijano. Nursing report after giving Albuterol Neb treatment, Mrs. Quijano has a sudden onset of restlessness, shortness of breath. vital signs at this time were pulse: 140 RR 40's labored, Oxygen sat on 2liter NC at 47 to 50%. diaphoretic, skin cool. O: Mrs. Quijano is sitting upright in chair, labored wet breathing is noted. diaphoretic. oxygen sats in mid 80's on increased at 6 liters. chest; coarse wet breath sound noted all bases, unable to hear heart tones due to respirations a; acute respiratory distress p; discussed with Mrs. Quijano, if she would like IV interventions, labs and medications to assist with breath. She states yes, would like IV and medications to help with breathing. , and external breathing machine if needed.
[2017-07-25] MEDS: LORazepam ORAL Concentrate 1MG/0.5ML U/D PO PRN (00:02)
[2017-07-25] MEDS: Morphine 10 MG/0.5 ML Oral Syringe PO PRN ×2 (01:08→04:33)
[2017-07-25] MEDS: Levalbuterol HCl 1.25 MG/3 ML Neb NEB SCH ×4 (07:23→20:18)
[2017-07-25] MEDS: Formoterol/Mometasone 100-5 MCG 8.8 GM Inhaler IH SCH ×2 (07:25→20:17)
[2017-07-25] MEDS: Tiotropium Inhaler 18 MCG Inhalation Powder Cap Kit of 5 INH SCH (07:25)
[2017-07-25] MEDS ORDERED: predniSONE 20 MG Tab PO SCH (08:00)
[2017-07-25] MEDS ORDERED: Furosemide 40 MG/4 ML VIAL IVPUSH ONE (08:54)
[2017-07-25] MEDS ORDERED: Furosemide 40 MG, Furosemide 20 MG IV ONE ×2 (09:00)
[2017-07-25] MEDS ORDERED: Furosemide 40 MG Tab PO SCH (09:00)
[2017-07-25] MEDS: Lactobacillus Rhamnosus GG (Probiotic) Cap PO SCH ×2 (09:45→20:16)
[2017-07-25] MEDS: Doxycycline 100 MG Cap PO SCH ×2 (09:46→20:16)
[2017-07-25] MEDS: predniSONE 10 MG Tab PO SCH (09:46)
[2017-07-25] MEDS: FLUoxetine 20 MG Cap PO SCH (09:47)
[2017-07-25] MEDS: guaiFENesin/Dextromethorphan 100-10 MG/5 ML Soln 10 ML Cup PO SCH ×4 (09:47→20:18)
--- NOTE | 2017-07-25 11:38 | CR ---
CHEST: AP portable CLINICAL HISTORY:Hypoxia COMPARISON:07/12/2017 FINDINGS: Pulmonary vasculature is mildly cephalized but improved from prior study. There is an incr ease in diffuse left lung infiltrate. Right lung infiltrate has diminished. There is a small left eff usion. IMPRESSION: Increasing infiltrate in the left lung. Decrease in the diffuse right lung infiltrate s halle prior study Again, this may represent superimposed CHF and pneumonia. Small left effusion
--- NOTE | 2017-07-25 15:13 | PCM.PN ---
- General Info Date of Service: 07/25/17 Subjective Update: Ms. Quijano has unfortunately taken a turn for the worse over the past 24 hours, last night developed increased shortness of breath and respiratory compromise. She was given IV morphine as well as IV furosemide and did improve somewhat from that point. Today she has been very weak and lethargic with minimal interaction. Several discussions today were held with her children who are present concerning ongoing management. They're discussing ongoing care and are leaning seriously towards comfort cares only. CT scan was obtained today and shows evidence of infiltrate, not significant pulmonary edema or other obvious abnormalities. Patient is very weak and lethargic, unable to answer specific questions concerning review systems are provide information concerning current symptoms. - Review of Systems General: Reports: Weakness. Denies: Fever - Patient Data Vitals - Most Recent: Last Vital Signs Temp 98.6 F 07/25/17 11:00 Pulse 99 07/25/17 14:49 Resp 28 H 07/25/17 11:00 BP 128/65 07/25/17 09:46 Pulse Ox 97 07/25/17 14:49 Weight - Most Recent: 145 lb 10.724 oz I&O - Last 24 Hours: Intake & Output 07/25/17 07/25/17 07/25/17 06:59 14:59 22:59 Output Total 500 350 Balance -500 -350 Lab Results Last 24 Hours: Laboratory Results - last 24 hr 07/24/17 07/24/17 07/24/17 Range/Units 22:34 22:36 23:04 WBC 18.0 H (4.5-11.0) K/uL RBC 4.04 (3.30-5.50) M/uL Hgb 12.2 (12.0-15.0) g/dL Hct 39.4 (36.0-48.0) % MCV 98 (80-98) fL MCH 30 (27-31) pg MCHC 31 L (32-36) % Plt Count 294 (150-400) K/uL Neut % (Auto) 92 H (36-66) % Lymph % (Auto) 3 L (24-44) % [place] % (Auto) 5 (2-6) % Eos % (Auto) 0 L (2-4) % Baso % (Auto) 0 (0-1) % Puncture Site Rt brachial ABG pH 7.307 L (7.350-7.450) ABG pCO2 75.4 H* (35.0-42.0) mmHg ABG pO2 50.6 L (75.0-100.0) mmHg ABG HCO3 36.6 H (22.0-26.0) mmol/L ABG Total CO2 33.8 H (21.0-25.0) mmol/L ABG O2 Saturation 80.8 L (95.0-98.0) % ABG O2 Content 13.7 L (15.0-23.0) %vol ABG Base Excess 8.1 mm/L ABG Hemoglobin 12.3 (12.0-16.0) g/dL ABG Oxyhemoglobin 79.4 % ABG Carboxyhemoglobin 1.1 (0.0-1.6) % ABG Methemoglobin 0.6 % Mic Test Not performed O2 Delivery Device Simple mask Oxygen Flow Rate 6 L Sodium 139 L (140-148) mmol/L Potassium 4.9 (3.6-5.2) mmol/L Chloride 99 L (100-108) mmol/L Carbon Dioxide 35 H (21-32) mmol/L Anion Gap 9.9 (5.0-14.0) mmol/L BUN 31 H (7-18) mg/dL Creatinine 1.1 H (0.6-1.0) mg/dL Est Cr Clr Drug Dosing 29.32 mL/min Estimated GFR (MDRD) 47 L (>60) Glucose 257 H (74-106) mg/dL Calcium 8.4 L (8.5-10.1) mg/dL Total Bilirubin 0.4 (0.2-1.0) mg/dL AST 32 (15-37) U/L ALT 48 D (12-78) U/L Alkaline Phosphatase 66 (46-116) U/L Troponin I 0.027 (0.000-0.056) ng/mL Total Protein 6.3 L (6.4-8.2) g/dL Albumin 2.7 L (3.4-5.0) g/dL Globulin 3.6 H (2.3-3.5) g/dL Albumin/Globulin Ratio 0.8 L (1.2-2.2) 07/25/17 07/25/17 Range/Units 05:12 05:12 WBC 21.0 H (4.5-11.0) K/uL RBC 3.76 (3.30-5.50) M/uL Hgb 11.4 L (12.0-15.0) g/dL Hct 37.0 (36.0-48.0) % MCV 98 (80-98) fL MCH 30 (27-31) pg MCHC 31 L (32-36) % Plt Count 254 (150-400) K/uL Neut % (Auto) (36-66) % Lymph % (Auto) (24-44) % [place] % (Auto) (2-6) % Eos % (Auto) (2-4) % Baso % (Auto) (0-1) % Puncture Site ABG pH (7.350-7.450) ABG pCO2 (35.0-42.0) mmHg ABG pO2 (75.0-100.0) mmHg ABG HCO3 (22.0-26.0) mmol/L ABG Total CO2 (21.0-25.0) mmol/L ABG O2 Saturation (95.0-98.0) % ABG O2 Content (15.0-23.0) %vol ABG Base Excess mm/L ABG Hemoglobin (12.0-16.0) g/dL ABG Oxyhemoglobin % ABG Carboxyhemoglobin (0.0-1.6) % ABG Methemoglobin % Mic Test O2 Delivery Device Oxygen Flow Rate L Sodium 142 (140-148) mmol/L Potassium 4.5 (3.6-5.2) mmol/L Chloride 99 L (100-108) mmol/L Carbon Dioxide 40 H (21-32) mmol/L Anion Gap 7.5 (5.0-14.0) mmol/L BUN 32 H (7-18) mg/dL Creatinine 1.1 H (0.6-1.0) mg/dL Est Cr Clr Drug Dosing 29.32 mL/min Estimated GFR (MDRD) 47 L (>60) Glucose 140 H (74-106) mg/dL Calcium 7.8 L (8.5-10.1) mg/dL Total Bilirubin (0.2-1.0) mg/dL AST (15-37) U/L ALT (12-78) U/L Alkaline Phosphatase (46-116) U/L Troponin I (0.000-0.056) ng/mL Total Protein (6.4-8.2) g/dL Albumin (3.4-5.0) g/dL Globulin (2.3-3.5) g/dL Albumin/Globulin Ratio (1.2-2.2) Med Orders - Current: Current Medications Acetaminophen (Tylenol) 650 mg PO Q4H PRN PRN Reason: Pain (Mild 1-3)/fever Last Admin: 07/24/17 02:21 Dose: 650 mg Acetaminophen (Tylenol) 650 mg RECTAL Q4H PRN PRN Reason: Mild pain/fever Benzonatate (Tessalon Perles) 100 mg PO TID PRN PRN Reason: Cough Last Admin: 07/23/17 05:32 Dose: 100 mg Doxycycline Hyclate (Vibramycin) 100 mg PO BID [facility] Last Admin: 07/25/17 09:46 Dose: 100 mg Fluoxetine HCl (Prozac) 20 mg PO DAILY [facility] Last Admin: 07/25/17 09:47 Dose: 20 mg Guaifenesin/Dextromethorphan (Robitussin Dm) 10 ml PO TID [facility] Last Admin: 07/25/17 09:47 Dose: 10 ml Lactobacillus Rhamnosus (Culturelle) 1 cap PO BID [facility] Last Admin: 07/25/17 09:45 Dose: 1 cap Levalbuterol HCl (Xopenex) 1.25 mg NEB QIDRT [facility] Last Admin: 07/25/17 14:48 Dose: 1.25 mg Lorazepam (Ativan Oral Concentrate 1mg/0.5 Ml U/D) 1 mg PO Q2H PRN PRN Reason: Anxiety Last Admin: 07/25/17 00:02 Dose: 1 mg Melatonin (Melatonin) 9 mg PO BEDTIME [facility] Last Admin: 07/24/17 21:52 Dose: 9 mg Mometasone Furoate/Formoterol Fumar (Dulera 100-5 Mcg) 2 puff IH BIDRT [facility] Last Admin: 07/25/17 07:25 Dose: 2 puff Morphine Sulfate (Morphine 10 Mg/0.5 Ml Oral Syringe) 5 mg PO Q2H PRN PRN Reason: Pain/Air Hunger Last Admin: 07/25/17 04:33 Dose: 5 mg Ondansetron HCl (Zofran Odt) 4 mg PO Q6H PRN PRN Reason: Nausea able to take PO Polyethylene Glycol (Miralax) 17 gm PO DAILY PRN PRN Reason: Constipation Prednisone (Prednisone) 20 mg PO WITHBREAKFAST [facility] Stop: 07/30/17 08:01 Prednisone (Prednisone) 10 mg PO WITHBREAKFAST [facility] Stop: 08/02/17 08:01 Prednisone (Prednisone) 10 mg PO DAILY [facility] Stop: 07/27/17 09:01 Last Admin: 07/25/17 09:46 Dose: 10 mg Senna/Docusate Sodium (Senna Plus) 1 tab PO BID PRN PRN Reason: Constipation Sodium Chloride (Saline Flush) 10 ml FLUSH ASDIRECTED PRN PRN Reason: Keep Vein Open Sodium Chloride (Saline Flush) 10 ml FLUSH ASDIRECTED PRN PRN Reason: Keep Vein Open Tiotropium [place] (Spiriva Handihaler) 18 mcg INH DAILYRT [facility] Last Admin: 07/25/17 07:25 Dose: 18 mcg Discontinued Medications Doxycycline Hyclate (Vibramycin) 100 mg PO BID [facility] Last Admin: 07/20/17 08:58 Dose: 100 mg Furosemide (Lasix) 40 mg IVPUSH ONETIME ONE Stop: 07/19/17 17:16 Last Admin: 07/19/17 17:46 Dose: 40 mg Furosemide (Lasix) 40 mg IVPUSH ONETIME ONE Stop: 07/20/17 12:05 Last Admin: 07/20/17 13:17 Dose: 40 mg Furosemide (Lasix) 40 mg PO ONETIME ONE Stop: 07/24/17 11:01 Last Admin: 07/24/17 11:22 Dose: 40 mg Furosemide (Lasix) 40 mg PO DAILY [facility] Furosemide (Lasix) 40 mg IVPUSH NOW ONE Stop: 07/24/17 22:34 Last Admin: 07/24/17 22:51 Dose: 40 mg Furosemide 40 mg/ Furosemide (20 mg) 60 mg IV ONETIME ONE Stop: 07/25/17 09:01 Last Admin: 07/25/17 09:46 Dose: 60 mg Magnesium Sulfate 2 gm/ Premix 50 mls @ 25 mls/hr IV Q6H [facility] Stop: 07/20/17 07:59 Last Admin: 07/20/17 05:15 Dose: 25 mls/hr [place] 1 gm/ Sodium (Chloride) 50 mls @ 100 mls/hr IV Q8H [facility] Meropenem 1 gm/ Sodium (Chloride) 50 mls @ 100 mls/hr IV Q12H [facility] Last Admin: 07/23/17 05:25 Dose: 100 mls/hr Doxycycline Hyclate 100 mg/ (Sodium Chloride) 100 mls @ 100 mls/hr IV Q12H [facility] Last Admin: 07/23/17 10:40 Dose: Not Given Methylprednisolone Sodium Succinate (Solu-Medrol) 62.5 mg IVPUSH Q8H [facility] Last Admin: 07/22/17 08:53 Dose: 62.5 mg Morphine Sulfate (Morphine) 2 mg IVPUSH ONETIME ONE Stop: 07/24/17 22:36 Last Admin: 07/24/17 23:04 Dose: 2 mg Prednisone (Prednisone) 20 mg PO WITHBREAKFAST [facility] Last Admin: 07/20/17 08:58 Dose: 20 mg Prednisone (Prednisone) 20 mg PO BIDAC [facility] Stop: 07/24/17 19:00 Last Admin: 07/24/17 16:47 Dose: 20 mg Prednisone (Prednisone) 30 mg PO WITHBREAKFAST [facility] Stop: 07/27/17 08:01 - Exam Quality Assessment: Supplemental Oxygen, DVT Prophylaxis General: Lethargic Lungs: Decreased Breath Sounds, Rhonchi, Wheezing. No: Crackles, Rales, Rub Cardiovascular: Regular Rate, Regular Rhythm, Murmurs GI/Abdominal Exam: Soft, Non-Tender, No Organomegaly, No Distention Extremities: Non-Tender, No Pedal Edema Skin: Warm, Dry, Intact - Problem List Review Problem List Initiated/Reviewed/Updated: Yes - My Orders Last 24 Hours: My Active Orders 07/25/17 14:48 Chest wo Cont [CT] Stat - Plan Plan:: ASSESSMENT AND PLAN - Diastolic congestive heart failure - increased shortness of breath and hypoxia during the night, fluid balance improved following IV furosemide last night and again this morning -Reassess volume status daily Left lung pneumonia - more prominent than seen on previous x-rays, CT scan document significant infiltrate in the left lung, no other obvious significant abnormalities identified area family's discussing wishes for ongoing management. They do not want to initiate antibiotic therapy until they have a consensus among the children. They are aware that if they do want to proceed with antibiotics the delay in initiating therapy will likely be detrimental. -Doxycycline -Continue prednisone, start taper -Acapella -Physical therapy COPD, oxygen dependent - baseline lung function is not great and she is normally on 2 L of oxygen. -Continue prednisone, -Supplement oxygen -Continue Xopenex nebulizers -Continue home medications History of Mycobacterium avium complex infection - concern for recurrence on most recent CT scan. At this point she is too sick to have a bronchoscopy for further evaluation and definitive diagnosis. She is not sure that she wants to undergo a bronchoscopy at this time but may consider additional make some improvements. -Consider outpatient bronchoscopy here in [facility], patient does not wish to travel to [place] to have this completed Palliative care - the patient does not want aggressive or painful interventions or workup undertaken. She are not interested in heroic measures such as CPR or intubation. Family is considering comfort cares only with no further aggressive interventions, evaluation, or management. Maintenance issues - - DVT prophylaxis - JARED stockings - GI prophylaxis - not indicated - Nutrition - regular Disposition - I would anticipate discharge to the senior care after the hospital stay. The possibility of hospice care has been discussed but the patient and family are not quite ready for this at this time. I would anticipate she will be ready for senior care discharge tomorrow. Primary care physician - Dr. Arreola
[2017-07-25 19:45] VITALS: BP 134/55
[2017-07-25] MEDS: Melatonin 3 MG Tab PO SCH (20:16)
[2017-07-26] MEDS: LORazepam ORAL Concentrate 1MG/0.5ML U/D PO PRN ×2 (01:51→05:19)
[2017-07-26] MEDS: Levalbuterol HCl 1.25 MG/3 ML Neb NEB SCH ×4 (07:16→22:14)
[2017-07-26] MEDS: Tiotropium Inhaler 18 MCG Inhalation Powder Cap Kit of 5 INH SCH (07:28)
[2017-07-26] MEDS: Formoterol/Mometasone 100-5 MCG 8.8 GM Inhaler IH SCH ×2 (07:28→20:14)
[2017-07-26] MEDS: Morphine 10 MG/0.5 ML Oral Syringe PO PRN ×6 (07:45→22:31)
[2017-07-26] MEDS: predniSONE 10 MG Tab PO SCH (09:34)
[2017-07-26] MEDS: FLUoxetine 20 MG Cap PO SCH (09:34)
[2017-07-26] MEDS: Lactobacillus Rhamnosus GG (Probiotic) Cap PO SCH ×2 (09:34→20:13)
[2017-07-26] MEDS: guaiFENesin/Dextromethorphan 100-10 MG/5 ML Soln 10 ML Cup PO SCH ×3 (09:35→20:14)
--- NOTE | 2017-07-26 13:41 | PCM.PN ---
- General Info Date of Service: 07/26/17 Subjective Update: Felicita was switch to comfort cares only yesterday. She has been receiving morphine and lorazepam as needed, family feels that she has been very comfortable. Currently sedated and lethargic, unable to answer specific questions about symptoms or review of systems - Patient Data Vitals - Most Recent: Last Vital Signs Temp 98.2 F 07/25/17 19:42 Pulse 93 07/26/17 10:40 Resp 20 07/25/17 19:42 BP 134/55 L 07/25/17 19:42 Pulse Ox 95 07/26/17 10:40 Weight - Most Recent: 145 lb 10.724 oz I&O - Last 24 Hours: Intake & Output 07/25/17 07/26/17 07/26/17 22:59 06:59 14:59 Intake Total 240 Output Total 350 325 150 Balance -110 -325 -150 Med Orders - Current: Current Medications Acetaminophen (Tylenol) 650 mg PO Q4H PRN PRN Reason: Pain (Mild 1-3)/fever Last Admin: 07/24/17 02:21 Dose: 650 mg Acetaminophen (Tylenol) 650 mg RECTAL Q4H PRN PRN Reason: Mild pain/fever Benzonatate (Tessalon Perles) 100 mg PO TID PRN PRN Reason: Cough Last Admin: 07/23/17 05:32 Dose: 100 mg Fluoxetine HCl (Prozac) 20 mg PO DAILY [facility] Last Admin: 07/26/17 09:34 Dose: Not Given Guaifenesin/Dextromethorphan (Robitussin Dm) 10 ml PO TID [facility] Last Admin: 07/26/17 09:35 Dose: Not Given Lactobacillus Rhamnosus (Culturelle) 1 cap PO BID [facility] Last Admin: 07/26/17 09:34 Dose: Not Given Levalbuterol HCl (Xopenex) 1.25 mg NEB QIDRT [facility] Last Admin: 07/26/17 10:40 Dose: 1.25 mg Lorazepam (Ativan Oral Concentrate 1mg/0.5 Ml U/D) 0.5 mg PO Q2H PRN PRN Reason: Anxiety Melatonin (Melatonin) 9 mg PO BEDTIME [facility] Last Admin: 07/25/17 20:16 Dose: 9 mg Mometasone Furoate/Formoterol Fumar (Dulera 100-5 Mcg) 2 puff IH BIDRT [facility] Last Admin: 07/26/17 07:28 Dose: Not Given Morphine Sulfate (Morphine 10 Mg/0.5 Ml Oral Syringe) 5 mg PO Q1H PRN PRN Reason: Pain/Air Hunger Last Admin: 07/26/17 12:11 Dose: 5 mg Ondansetron HCl (Zofran Odt) 4 mg PO Q6H PRN PRN Reason: Nausea able to take PO Polyethylene Glycol (Miralax) 17 gm PO DAILY PRN PRN Reason: Constipation Prednisone (Prednisone) 10 mg PO DAILY [facility] Stop: 07/27/17 09:01 Last Admin: 07/26/17 09:34 Dose: Not Given Senna/Docusate Sodium (Senna Plus) 1 tab PO BID PRN PRN Reason: Constipation Sodium Chloride (Saline Flush) 10 ml FLUSH ASDIRECTED PRN PRN Reason: Keep Vein Open Sodium Chloride (Saline Flush) 10 ml FLUSH ASDIRECTED PRN PRN Reason: Keep Vein Open Tiotropium [place] (Spiriva Handihaler) 18 mcg INH DAILYRT [facility] Last Admin: 07/26/17 07:28 Dose: Not Given Discontinued Medications Doxycycline Hyclate (Vibramycin) 100 mg PO BID [facility] Last Admin: 07/20/17 08:58 Dose: 100 mg Doxycycline Hyclate (Vibramycin) 100 mg PO BID [facility] Last Admin: 07/25/17 20:16 Dose: 100 mg Furosemide (Lasix) 40 mg IVPUSH ONETIME ONE Stop: 07/19/17 17:16 Last Admin: 07/19/17 17:46 Dose: 40 mg Furosemide (Lasix) 40 mg IVPUSH ONETIME ONE Stop: 07/20/17 12:05 Last Admin: 07/20/17 13:17 Dose: 40 mg Furosemide (Lasix) 40 mg PO ONETIME ONE Stop: 07/24/17 11:01 Last Admin: 07/24/17 11:22 Dose: 40 mg Furosemide (Lasix) 40 mg PO DAILY [facility] Furosemide (Lasix) 40 mg IVPUSH NOW ONE Stop: 07/24/17 22:34 Last Admin: 07/24/17 22:51 Dose: 40 mg Furosemide 40 mg/ Furosemide (20 mg) 60 mg IV ONETIME ONE Stop: 07/25/17 09:01 Last Admin: 07/25/17 09:46 Dose: 60 mg Magnesium Sulfate 2 gm/ Premix 50 mls @ 25 mls/hr IV Q6H [facility] Stop: 07/20/17 07:59 Last Admin: 07/20/17 05:15 Dose: 25 mls/hr Meropenem 1 gm/ Sodium (Chloride) 50 mls @ 100 mls/hr IV Q8H [facility] Meropenem 1 gm/ Sodium (Chloride) 50 mls @ 100 mls/hr IV Q12H [facility] Last Admin: 07/23/17 05:25 Dose: 100 mls/hr Doxycycline Hyclate 100 mg/ (Sodium Chloride) 100 mls @ 100 mls/hr IV Q12H [facility] Last Admin: 07/23/17 10:40 Dose: Not Given Lorazepam (Ativan Oral Concentrate 1mg/0.5 Ml U/D) 1 mg PO Q2H PRN PRN Reason: Anxiety Last Admin: 07/26/17 05:19 Dose: 1 mg Methylprednisolone Sodium Succinate (Solu-Medrol) 62.5 mg IVPUSH Q8H [facility] Last Admin: 07/22/17 08:53 Dose: 62.5 mg Morphine Sulfate (Morphine 10 Mg/0.5 Ml Oral Syringe) 5 mg PO Q2H PRN PRN Reason: Pain/Air Hunger Last Admin: 07/26/17 07:45 Dose: 5 mg Morphine Sulfate (Morphine) 2 mg IVPUSH ONETIME ONE Stop: 07/24/17 22:36 Last Admin: 07/24/17 23:04 Dose: 2 mg Prednisone (Prednisone) 20 mg PO WITHBREAKFAST [facility] Last Admin: 07/20/17 08:58 Dose: 20 mg Prednisone (Prednisone) 20 mg PO BIDAC [facility] Stop: 07/24/17 19:00 Last Admin: 07/24/17 16:47 Dose: 20 mg Prednisone (Prednisone) 20 mg PO WITHBREAKFAST [facility] Stop: 07/30/17 08:01 Prednisone (Prednisone) 10 mg PO WITHBREAKFAST [facility] Stop: 08/02/17 08:01 Prednisone (Prednisone) 30 mg PO WITHBREAKFAST [facility] Stop: 07/27/17 08:01 - Exam Quality Assessment: Supplemental Oxygen, DVT Prophylaxis General: Sedated, Lethargic - Problem List Review Problem List Initiated/Reviewed/Updated: Yes - My Orders Last 24 Hours: My Active Orders 07/25/17 14:48 Chest wo Cont [CT] Stat 07/26/17 08:40 LORazepam [Ativan ORAL Concentrate 1MG/0.5 ML U/D] 0.5 mg PO Q2H PRN Morphine [Morphine 10 MG/0.5 ML Oral Syringe] 5 mg PO Q1H PRN - Plan Plan:: ASSESSMENT AND PLAN - Diastolic congestive heart failure - -Comfort cares only Left lung pneumonia - -Comfort cares only COPD, oxygen dependent - supplemental oxygen as needed for comfort -Continue prednisone, -Supplement oxygen -Continue Xopenex nebulizers Palliative care - the patient does not want aggressive or painful interventions or workup undertaken. She are not interested in heroic measures such as CPR or intubation. Status has been changed to comfort cares only Maintenance issues - - DVT prophylaxis - JARED stockings - GI prophylaxis - not indicated - Nutrition - regular Disposition - I would anticipate discharge to the alf versus amrit [place] with hospice care Primary care physician - Dr. Arreola
[2017-07-26] MEDS: Melatonin 3 MG Tab PO SCH (20:14)
[2017-07-27] MEDS: LORazepam ORAL Concentrate 1MG/0.5ML U/D PO PRN ×2 (00:30→04:48)
[2017-07-27] MEDS: Morphine 10 MG/0.5 ML Oral Syringe PO PRN ×4 (04:09→10:49)
[2017-07-27] MEDS: Levalbuterol HCl 1.25 MG/3 ML Neb NEB SCH ×2 (07:24→11:06)
[2017-07-27] MEDS: Tiotropium Inhaler 18 MCG Inhalation Powder Cap Kit of 5 INH SCH (07:25)
[2017-07-27] MEDS: Formoterol/Mometasone 100-5 MCG 8.8 GM Inhaler IH SCH (07:25)
[2017-07-27] MEDS: predniSONE 10 MG Tab PO SCH (08:23)
[2017-07-27] MEDS: Lactobacillus Rhamnosus GG (Probiotic) Cap PO SCH (08:23)
[2017-07-27] MEDS: FLUoxetine 20 MG Cap PO SCH (08:24)
[2017-07-27] MEDS: guaiFENesin/Dextromethorphan 100-10 MG/5 ML Soln 10 ML Cup PO SCH (08:24)
--- NOTE | 2017-07-27 11:51 | PCM.DCSUM1 ---
Discharge Summary - Hospital Course Brief History: 87-year-old female with history of oxygen dependent COPD, previous Mycobacterium avium complex infection and recent pneumonia who presented with fever, lethargy and worsening hypoxia. She was admitted for management of recurrent pneumonia. - Discharge Data Discharge Date: 07/27/17 Discharge Disposition: 20 Condition: - Discharge Diagnosis/Problem(s) (1) Palliative care encounter SNOMED Code(s): 738181496 ICD Code: Z51.5 - ENCOUNTER FOR PALLIATIVE CARE Status: Acute Current Visit: Yes (2) Pneumonia SNOMED Code(s): 081564977 ICD Code: J18.9 - PNEUMONIA, UNSPECIFIED ORGANISM Status: Acute Current Visit: No Qualifiers: Pneumonia type: due to unspecified organism Laterality: left Lung location: lower lobe of lung Qualified Code(s): J18.1 - Lobar pneumonia, unspecified organism (3) CHF (congestive heart failure) SNOMED Code(s): 82062372 ICD Code: I50.9 - HEART FAILURE, UNSPECIFIED Status: Acute Current Visit : Yes Qualifiers: Heart failure type: diastolic Heart failure chronicity: acute Qualified Code(s): I50.31 - Acute diastolic (congestive) heart failure (4) Hypoxia SNOMED Code(s): 159121729 ICD Code: R09.02 - HYPOXEMIA Status: Acute Current Visit: No (5) COPD (chronic obstructive pulmonary disease) SNOMED Code(s): 60337081 ICD Code: J44.9 - CHRONIC OBSTRUCTIVE PULMONARY DISEASE, UNSPECIFIED Status : Chronic Current Visit: No Qualifiers: Emphysema type: unspecified (6) Renal insufficiency SNOMED Code(s): 683815189 ICD Code: N28.9 - DISORDER OF KIDNEY AND URETER, UNSPECIFIED Status: Chronic Current Visit: No - Patient Summary/Data Hospital Course: Felicita presented as a direct admission from the walk-in clinic. She had initially presented there with lethargy, fever, worsening shortness of breath as well as lower extremity edema. Workup in the clinic revealed acute on chronic hypoxic respiratory failure as well as fever and lethargy. Chest x-ray showed persistent left lung infiltrate. Given the lethargy and fever she was admitted to the hospital. She was started on extended spectrum antibiotics given recent antibiotic therapy. Antibiotic choices included doxycycline and meropenem. She was also started on IV steroids initially. There was some mild evidence for volume overload and she did receive IV diuresis at the time of admission as well as the morning after. Over the first 24 hours she did not show significant improvement clinically. She remained on an increased amount of supplemental oxygen from baseline. White blood cell count increased the morning after admission and was up to 20,000 from around 14,000 at the time of admission. She remained very lethargic and had intermittent fevers. We had several discussions about the path of care and elected to continue current level but not escalate cares any further. Over the next 24 hours things did not change much. White blood cell count increased slightly and she remained very lethargic. Fortunately her temperature curve had improved slightly and oxygenation remained stable. Volume status seemed more appropriate and diuresis was held at that time. During the evening of the second day of hospitalization she perked up and had increased energy and was able to get up to the chair. Respiratory status did show a slight improvement. Temperature curve had been improving but white blood cell count trended up slightly compared to the days before. Over the next 24 hours she had additional improvements including decreasing supplemental oxygen requirement. She has been afebrile over this period and white blood cell count did bump up slightly. With her improvements we elected to transition from IV down to oral steroids. We continued on the extended spectrum antibiotics. Clinically she had ongoing improvement in volume status remained stable. Kidney function has been stable throughout the course of the hospital stay. Fever curve continues to improve. 2 days before discharge her IV came out and we transitioned to just oral doxycycline. We continued the prednisone. She had ongoing improvement throughout the day. The day before discharge she did have a several pound weight gain and slight decline in her respiratory status. This did respond very nicely to a single dose of oral furosemide. Recently there has been concern for recurrence of her Mycobacterium avium complex infection. The plan was to have her see a commutator inspector in [place], but she never improved enough as far as her respiratory status to feel that she would be safe to proceed with this procedure. Originally discharge and been planned for July 25. During the night she developed exacerbation of respiratory compromise with increased shortness of breath. She was given IV Lasix and stabilized somewhat. Following morning her ongoing health problems as well as current condition reviewed with family, CT scan of the chest without contrast was obtained to further define etiology of her compromise. Scan did show significant left lung pneumonia as well as probable resolving right lung pneumonia. We're unable to give contrast rule out pulmonary embolism because of her compromised renal function. Family reviewed her living will and felt that it was consistent with her previously stated wishes that we stop aggressive interventions and evaluation at this point. They felt that she'd lost ground significantly over the past few weeks and would not want further testing or treatment other than comfort cares. All aggressive interventions were discontinued and she was placed on comfort measures with use of morphine and lorazepam as needed. Over the next few days she was very comfortable with this management. On the morning of July 27 she peacefully in no attempts were made at resuscitation as per her previously expressed wishes. - Patient Instructions Diet: Regular Diet as Tolerated Activity: As Tolerated Showering/Bathing: May Shower Notify Provider of: Fever, Increased Pain, Nausea and/or Vomiting Other/Special Instructions: 1. You were in the hospital for management of recurrent and severe pneumonia. We did not determine a causative bacteria but you have been getting better with antibiotic therapy. I recommend 6 additional doses of doxycycline to be taken after hospital discharge to complete 8 days of treatment. You were also on prednisone to help with inflammation related to the infection. Because of the duration of steroid therapy I recommend a taper over the next 8 days after hospital discharge. Directions are listed below: - Starting 07/26 - prednisone 30 mg daily with breakfast 2 days. -Starting 07/28 - prednisone 20 mg daily with breakfast 3 days. -Starting 07/31 - prednisone 10 mg daily with breakfast for 3 days then stop. 2. Continue your home oxygen at 2 L/m as previously prescribed. 3. CODE STATUS is full treatment without intubation and without ACLS. 4. I have placed a referral to physical and occupational therapy to provide strengthening while you are at the [facility] for subacute [facility]. 5. Follow-up with Dr. Arreola in 1-2 weeks. You should review the hospital stay and discuss the risk versus benefit of having a bronchoscopy completed here in [place] is worthwhile to avoid the difficult travel to [place]. 6. Please seek medical attention if you develop fever greater than 101, have severe shortness of breath, chest pain or persistent vomiting. - Discharge Plan Prescriptions/Med Rec: Acetaminophen [Tylenol] 650 mg PO Q4H PRN #100 tablet PRN Reason: Pain (Mild 1-3)/fever Benzonatate [Tessalon Perle] 100 mg PO TID PRN #30 capsule PRN Reason: Cough Doxycycline Calcium [IMW: Doxycycline] 100 mg PO BID #6 capsule guaiFENesin/Dextromethorphan [Guaifenesin Dm Syrup] 10 ml PO Q6H PRN #240 syrup PRN Reason: Cough predniSONE 10 mg PO ASDIRECTED #15 tablet Home Medications: Home Meds Fluticasone/Salmeterol [Advair 100-50] 1 puff INH BID 10/04/14 [History] Furosemide [Lasix] 20 mg PO DAILY 10/04/14 [History] Tiotropium [Spiriva HandiHaler] 18 mcg INH DAILY 10/04/14 [History] L.acidoph,Paracasei, B.lactis [Probiotic] 1 each PO BID 08/27/16 [History] *B12 1,000 mcg PO DAILY 07/08/17 [History] Levalbuterol HCl [Xopenex] 1.25 mg NEB QIDRT #120 neb 07/15/17 [Rx] FLUoxetine HCl [Prozac] 20 mg PO DAILY 07/19/17 [History] Acetaminophen [Tylenol] 650 mg PO Q4H PRN #100 tablet 07/24/17 [Rx] Benzonatate [Tessalon Perle] 100 mg PO TID PRN #30 capsule 07/24/17 [Rx] Doxycycline Calcium [IMW: Doxycycline] 100 mg PO BID #6 capsule 07/24/17 [Rx] guaiFENesin/Dextromethorphan [Guaifenesin Dm Syrup] 10 ml PO Q6H PRN #240 syrup 07/24/17 [Rx] predniSONE 10 mg PO ASDIRECTED #15 tablet 07/24/17 [Rx] - Patient Data Vitals - Most Recent: Last Vital Signs Temp 89.9 F L 07/27/17 09:27 Pulse 109 H 07/27/17 09:27 Resp 24 H 07/27/17 09:27 BP 134/55 L 07/25/17 19:42 Pulse Ox 92 L 07/27/17 09:27 Weight - Most Recent: 145 lb 10.724 oz I&O - Last 24 hours: Intake & Output 03/06/18 03/07/18 03/07/18 22:59 06:59 14:59 Intake Total 0 Output Total 0 Balance 0 Med Orders - Current: Current Medications Acetaminophen (Tylenol) 650 mg PO Q4H PRN PRN Reason: Pain (Mild 1-3)/fever Last Admin: 07/24/17 02:21 Dose: 650 mg Acetaminophen (Tylenol) 650 mg RECTAL Q4H PRN PRN Reason: Mild pain/fever Benzonatate (Tessalon Perles) 100 mg PO TID PRN PRN Reason: Cough Last Admin: 07/23/17 05:32 Dose: 100 mg Fluoxetine HCl (Prozac) 20 mg PO DAILY [facility] Last Admin: 07/27/17 08:24 Dose: Not Given Guaifenesin/Dextromethorphan (Robitussin Dm) 10 ml PO TID [facility] Last Admin: 07/27/17 08:24 Dose: Not Given Lactobacillus Rhamnosus (Culturelle) 1 cap PO BID [facility] Last Admin: 07/27/17 08:23 Dose: Not Given Levalbuterol HCl (Xopenex) 1.25 mg NEB QIDRT [facility] Last Admin: 07/27/17 11:06 Dose: Not Given Lorazepam (Ativan Oral Concentrate 1mg/0.5 Ml U/D) 0.5 mg PO Q2H PRN PRN Reason: Anxiety Last Admin: 07/27/17 04:48 Dose: 0.5 mg Melatonin (Melatonin) 9 mg PO BEDTIME [facility] Last Admin: 07/26/17 20:14 Dose: Not Given Mometasone Furoate/Formoterol Fumar (Dulera 100-5 Mcg) 2 puff IH BIDRT [facility] Last Admin: 07/27/17 07:25 Dose: Not Given Morphine Sulfate (Morphine 10 Mg/0.5 Ml Oral Syringe) 5 mg PO Q1H PRN PRN Reason: Pain/Air Hunger Last Admin: 07/27/17 09:19 Dose: 5 mg Ondansetron HCl (Zofran Odt) 4 mg PO Q6H PRN PRN Reason: Nausea able to take PO Polyethylene Glycol (Miralax) 17 gm PO DAILY PRN PRN Reason: Constipation Senna/Docusate Sodium (Senna Plus) 1 tab PO BID PRN PRN Reason: Constipation Sodium Chloride (Saline Flush) 10 ml FLUSH ASDIRECTED PRN PRN Reason: Keep Vein Open Sodium Chloride (Saline Flush) 10 ml FLUSH ASDIRECTED PRN PRN Reason: Keep Vein Open Tiotropium [place] (Spiriva Handihaler) 18 mcg INH DAILYRT [facility] Last Admin: 07/27/17 07:25 Dose: Not Given Discontinued Medications Doxycycline Hyclate (Vibramycin) 100 mg PO BID [facility] Last Admin: 07/20/17 08:58 Dose: 100 mg Doxycycline Hyclate (Vibramycin) 100 mg PO BID [facility] Last Admin: 07/25/17 20:16 Dose: 100 mg Furosemide (Lasix) 40 mg IVPUSH ONETIME ONE Stop: 07/19/17 17:16 Last Admin: 07/19/17 17:46 Dose: 40 mg Furosemide (Lasix) 40 mg IVPUSH ONETIME ONE Stop: 07/20/17 12:05 Last Admin: 07/20/17 13:17 Dose: 40 mg Furosemide (Lasix) 40 mg PO ONETIME ONE Stop: 07/24/17 11:01 Last Admin: 07/24/17 11:22 Dose: 40 mg Furosemide (Lasix) 40 mg PO DAILY [facility] Furosemide (Lasix) 40 mg IVPUSH NOW ONE Stop: 07/24/17 22:34 Last Admin: 07/24/17 22:51 Dose: 40 mg Furosemide 40 mg/ Furosemide (20 mg) 60 mg IV ONETIME ONE Stop: 07/25/17 09:01 Last Admin: 07/25/17 09:46 Dose: 60 mg Magnesium Sulfate 2 gm/ Premix 50 mls @ 25 mls/hr IV Q6H [facility] Stop: 07/20/17 07:59 Last Admin: 07/20/17 05:15 Dose: 25 mls/hr Meropenem 1 gm/ Sodium (Chloride) 50 mls @ 100 mls/hr IV Q8H [facility] Meropenem 1 gm/ Sodium (Chloride) 50 mls @ 100 mls/hr IV Q12H [facility] Last Admin: 07/23/17 05:25 Dose: 100 mls/hr Doxycycline Hyclate 100 mg/ (Sodium Chloride) 100 mls @ 100 mls/hr IV Q12H [facility] Last Admin: 07/23/17 10:40 Dose: Not Given Lorazepam (Ativan Oral Concentrate 1mg/0.5 Ml U/D) 1 mg PO Q2H PRN PRN Reason: Anxiety Last Admin: 07/26/17 05:19 Dose: 1 mg Methylprednisolone Sodium Succinate (Solu-Medrol) 62.5 mg IVPUSH Q8H [facility] Last Admin: 07/22/17 08:53 Dose: 62.5 mg Morphine Sulfate (Morphine 10 Mg/0.5 Ml Oral Syringe) 5 mg PO Q2H PRN PRN Reason: Pain/Air Hunger Last Admin: 07/26/17 07:45 Dose: 5 mg Morphine Sulfate (Morphine) 2 mg IVPUSH ONETIME ONE Stop: 07/24/17 22:36 Last Admin: 07/24/17 23:04 Dose: 2 mg Prednisone (Prednisone) 20 mg PO WITHBREAKFAST [facility] Last Admin: 07/20/17 08:58 Dose: 20 mg Prednisone (Prednisone) 20 mg PO BIDAC [facility] Stop: 07/24/17 19:00 Last Admin: 07/24/17 16:47 Dose: 20 mg Prednisone (Prednisone) 20 mg PO WITHBREAKFAST [facility] Stop: 07/30/17 08:01 Prednisone (Prednisone) 10 mg PO WITHBREAKFAST [facility] Stop: 08/02/17 08:01 Prednisone (Prednisone) 30 mg PO WITHBREAKFAST [facility] Stop: 07/27/17 08:01 Prednisone (Prednisone) 10 mg PO DAILY [facility] Stop: 07/27/17 09:01 Last Admin: 07/27/17 08:23 Dose: Not Given *Q Meaningful Use (DIS) - VTE *Q VTE Criteria *Q: - Stroke *Q Stroke Criteria *Q: - AMI *Q AMI Criteria *Q:
[2017-07-28] MEDS ORDERED: predniSONE 20 MG Tab PO SCH (08:00)
[2017-07-31] MEDS ORDERED: predniSONE 10 MG Tab PO SCH (08:00)
== END 2017-07-27 13:15 | disposition expired | DRG 193 ==
LOC: JP.MS 15:40
PROVIDERS: ADMIT Internal Medicine; ATTEND Hospitalist
DX: J18.1 Lobar pneumonia, unspecified organism (principal); J96.21 Acute and chronic respiratory failure with hypoxia; I50.31 Acute diastolic (congestive) heart failure; J44.9 Chronic obstructive pulmonary disease, unspecified; Z86.19 Personal history of other infectious and parasitic diseases; R06.03 Acute respiratory distress; N28.9 Disorder of kidney and ureter, unspecified; Z51.5 Encounter for palliative care; Z66 Do not resuscitate; E87.70 Fluid overload, unspecified; Z99.81 Dependence on supplemental oxygen; F32.9 Major depressive disorder, single episode, unspecified; M19.90 Unspecified osteoarthritis, unspecified site; M54.9 Dorsalgia, unspecified; G89.29 Other chronic pain; Z87.01 Personal history of pneumonia (recurrent); H54.7 Unspecified visual loss; H35.30 Unspecified macular degeneration; Z88.0 Allergy status to penicillin; Z88.8 Allergy status to other drugs, medicaments and biological substances; Z79.52 Long term (current) use of systemic steroids; R53.83 Other fatigue
CPT/HCPCS: 36415; 36600; 71045; 71045-26; 71250; 80048; 80053; 82803; 84484; 85025; 85027; 86140; 87070; 87205; 93005; 93306; 94640; 94640-76; 94667; 94668; 97110-GP; 97116-GP; 97162-GP; A9270-GY; J1940; J2185; J2270; J2930; J3475; J7030; J7050; J7612